=== PATIENT | female | born 1985 | race Caucasian/White ===

== ENCOUNTER 2022-04-24 08:33 | Outpatient (CLI) | payer OTHER, BC, SELFPAY ==
--- NOTE | 2022-04-24 10:01 | W.ANESCHARGE ---
Anesthesia Charges Start Date/Time Anesthesia Start Date: 04/24/22 Anesthesia Start Time: 09:37 Stop Date/Time Anesthesia Stop Date: 04/24/22 Anesthesia Stop Time: 09:58 Summary Emergency: No
--- NOTE | 2022-04-24 10:05 | W.ANESCHARGE ---
Anesthesia Charges Start Date/Time Anesthesia Start Date: 04/24/22 Anesthesia Start Time: 09:37 Stop Date/Time Anesthesia Stop Date: 04/24/22 Anesthesia Stop Time: 09:58 Summary Emergency: No
== END 2022-04-24 08:34 | disposition home or self-care (01) ==
PROVIDERS: PCP Family Medicine; Visit Provider Internal Medicine Gastroenterology
DX: K92.1 Melena (principal); K64.8 Other hemorrhoids
CPT/HCPCS: 45378; 812; J2704

== ENCOUNTER 2022-06-12 10:32 | Outpatient (CLI) | payer OTHER, BC, SELFPAY ==
--- OUTSIDE RECORDS SUMMARY | 2022-06-12 10:35 | XMS_ITS | Clinical Summary ---
:1985 Author Organization [facility] [place] [address] Care Team Providers Name Role Phone Jorje Goodwin MD Unavailable Celina Espinoza MD Primary Care Provider Allergies Active Allergy Reactions Severity Noted Date Comments Mupirocin Rash High 01/04/2022 Medications Medication Sig Dispensed Refills Start Date End Date Status vitamin-folic Take 1 tablet by 0 04/20/2014 Active acid 1 mg ( mouth once daily. FORMULA) tablet/capsule cholecalciferol Take 1 tablet by 0 04/20/2014 Active (VITAMIN D) 1,000 unit mouth once daily. tablet LUTERA, 28, 0.1-20 Take 1 tablet by 0 07/15/2014 Active mg-mcg tablet mouth once daily. sertraline (ZOLOFT) 50 Take 1 tablet by 0 10/21/2016 Active mg tablet mouth once daily. FA-B Com&C-Rice Daily 0 Acti ve Bran-Shelley Hips 400-500 mcg-mg tab Cholecalciferol-Soy Bedtime 0 Active Isoflavone 2,000-64 unit-mg tab amitriptyline (ELAVIL) TAKE 1 TABLET BY 0 01/26/2022 Active 50 mg tablet MOUTH EVERYDAY AT BEDTIME Ferrous Gluconate 324 Daily 0 Active mg (38 mg iron) tablet L Take 1 Tablet by 0 01/04/2022 Ac tive norgest/e.estradioL-e. mouth once daily. estrad (SEASONIQUE) 0.15 mg-30 mcg (84)/10 mcg (7) tab zinc sulfate 50 mg Daily 0 A ctive zinc (220 mg) capsule polyethylene Drink 3 liters 4000 mL 0 03/08/2022 A ctive glycol-electrolyte (3/4 of bottle) (GOLYTELY) the day prior to 236-22.74-6.74 -5.86 colonoscopy and 1 gram liter (remaining suspensionIndications: 1/4 of bottle) 6 Encounter for hours prior to screening colonoscopy colonoscopy appointment Active Problems No known active problems Encounters Date Type Specialty Care Team Description 04/24/2022 Procedure Only Suhail Hopson MD 04/24/2022 Travel 04/17/2022 Telephone Suhail Hopson MD Err or-please disregard from Last 3 Months Social History Tobacco Use Types Packs/Day Years Used Date Former Smoker Quit: 02/16/20 13 Smokeless Tobacco: Never Used Tobacco Cessation: Counseling Given: Yes Alcohol Use Standard Drinks/Week Comments Yes 0 (1 standard drink = 0.6 oz pure alcoho l) 1 times a week Alcohol Habits Answer Date Recorded How often do you have a drink containing alcohol? Not asked How many drinks containing alcohol do you have on a Not aske d typical day when you are drinking? How often do you have six or more drinks on one Not asked occasion? 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 Plan of Treatment Health Maintenance Due Date Last Done Comments COVID-19 vaccine series (#1) 05/02/1988 Tdap 1998 Depression screening for age 12+ 1999 Hepatitis C screening for age 0211/02/2005 18-79 Tetanus booster 2007 BMI (ht and wt on same day) for 08/21/2018 08/21/2017, 12/2016 age 18+ Influenza for age 9-49 05/18/2022 Pap test for age 21-65 10/11/2023 10/11/2020, 10/11/2020, 02/15/2018, Additional history exists Procedures Procedure Name Priority Date/Time Associated Diagnosis Comme nts COLONOSCOPY Routine 04/24/2022 12:00 Hematochezia Results for this DIAGNOSTIC AM CDT procedure are i n the results section. from Last 3 Months Results COLONOSCOPY DIAGNOSTIC (04/24/2022 12:00 AM CDT) Narrative This result has an attachment that is no t available. Suhail Hopson MD GI PROCEDURE ORD from Last 3 Months Insurance Payer Benefit Plan / Subscriber ID Effective Dates Phone Addre ss Type [employer] [id number] 2021-Present [address] [place] [address] BLUE CROSS BLUE CROSS OF [id number] 2020-Present [address] [address] [place] [address] [place] MED[place] 2010-Presen [address] [address] [place] [address] Care Teams Hide Mill Worker Relationship Specialty Start Date End Date Celina Espinoza MD PCP - General Family Practice 03/08/221999 [place] [address] Jorje Goodwin MD Sports Medicine 12/12/11 [address] [place] [address]
--- OUTSIDE RECORDS SUMMARY | 2022-06-12 10:35 | XMS_ITS | Encounter Summary ---
:1985 Author Organization [facility] Address [address] [place] [address] Care Team Providers Name Role Phone Unavailable Primary Care Provider Unavailable Encounter Details Date Type Department Care Team Description 09/28/2003 - Hospital Encounter HX RST GENEROSE 1 OCEANSIDE 10/01/2003 Social History Tobacco Use Types Packs/Day Years Used Date Smoking Tobacco: Never Assessed Sex Assigned at Date Recorded Not on file documented as of this encounter Plan of Treatment Not on filedocumented as of this encounter Procedures Procedure Name Priority Date/Time Associated Diagnosis Comme nts PATHOLOGY SOFTWARE DEVELOPMENT ENGINEER Routine 09/30/2003 7:46 PM Results for this CYTOLOGY RADIATION THERAPY TECHNOLOGIST procedure are i n the results section. documented in this encounter Results Pathology SOFTWARE DEVELOPMENT ENGINEER Cytology (09/30/2003 7:46 PM RADIATION THERAPY TECHNOLOGIST) Specimen Anatomical Collection Method Collection Time Receive d Time (Source) Location / / Volume Laterality 09/30/2003 7:46 PM 4 7:46 RADIATION THERAPY TECHNOLOGIST PM RADIATION THERAPY TECHNOLOGIST Narrative [facility] - 09/30/2003 7:46 PM RADIATION THERAPY TECHNOLOGIST ??09/29/2003 Cytology Gynecological ?([id number]) ? Requested By: ??Isabel Person ??[phone] ?DIAGNOSIS: ?? A. ??Cervical/Endocervical Smear Screen : ?Satisfactory for evaluation. ?Negative for intraepithelial le yessy or malignancy. ? 10/01/2003 ?Jovan Morales (ASCP) Elizabeth Teixeira M.D. ?[phone] ?? SPECIMEN DESCRIPTION: ? Procedure Note 12/08/2017 09/29/2003 Cytology Gynecological ([id number]) Requested By: Matilde Cabrera M.D. [id number] DIAGNOSIS: A. Cervical/Endocervical Smear Screen: Satisfactory for evaluation. Negative for intraepithelial lesion or malignancy. 10/01/2003 MATTIE Morales ( CP) Elizabeth Teixeira M.D. [phone] SPECIMEN DESCRIPTION: Historical Provider LAB PAP COPATH ORDERABLES Performing Organization Address City/State/ZIP Code Phon e Number [facility] - [address] [place], [place] [address] [facility] documented in this encounter Visit Diagnoses Not on filedocumented in this encounter
--- OUTSIDE RECORDS SUMMARY | 2022-06-12 10:35 | XMS_ITS | Encounter Summary ---
:1985 Author Organization [facility] Address [address] [place] [address] Care Team Providers Name Role Phone Elsewhere, Pcp Primary Care Provider Unavailable Encounter Details Date Type Department Care Team Description 08/14/2020 Admin Visit Department of Family Medicine, [address] [address] [facility] [phone] Social History Tobacco Use Types Packs/Day Years Used Date Smoking Tobacco: Every Day Sex Assigned at Date Recorded Not on file documented as of this encounter Plan of Treatment Not on filedocumented as of this encounter Visit Diagnoses Not on filedocumented in this encounter Additional Health Concerns Infection Onset Date Last Indicated Resolved Time COVID19 Pending 08/14/2020 08/14/2020 08/15/2020 3:27 PM CREATIVE 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
--- OUTSIDE RECORDS SUMMARY | 2022-06-12 10:35 | XMS_ITS | Encounter Summary ---
:1985 Author Organization [facility] Address [address] [place] [address] Care Team Providers Name Role Phone Elsewhere, Pcp Primary Care Provider Unavailable Reason for Visit Reason Onset Date Comments Outpatient COVID-19 Testing 08/14/2020 Encounter Details Date Type Department Care Team Description 08/14/2020 External Outreach Department of Dereje Mars Infect ion Upper Internal Medicine in J, D.O. Respiratory (Primary [place], [place] [address] Dx) [address] [place] [phone] Social History Tobacco Use Types Packs/Day Years Used Date Smoking Tobacco: Every Day Sex Assigned at Date Recorded Not on file documented as of this encounter Progress Notes Elizabeth Velez R.N. - 08/14/2020 10:49 AM CST Encounter created for the drive-through COVID-19 testing. BUILDER documented in this encounter Plan of Treatment Not on filedocumented as of this encounter Procedures Procedure Name Priority Date/Time Associated Diagnosis Comme nts SARS CORONAVIRUS-2 Routine 08/14/2020 12:40 PM Infection Upper Results for this RNA, V OVEN BUILDER Respiratory procedure are i n the results section. documented in this encounter Results SARS Coronavirus-2 RNA, V Symptomatic (08/14/2020 12:40 PM OVEN BUILDER) Patholo gist Method Time Signature SARS-CoV-2 Swab, 08/15/2020 MKTO Specimen Nasopharynx 3:27 PM OVEN BUILDER Source SARS CoV-2 Undetected Undetected 08/15/2020 MKTO RNA, TMA 3:27 PM OVEN BUILDER Comment: SARS-CoV-2 RNA absent. This result does not rule out COVID-19 in the patient, as the sensitivity of the test depends o n the timing of the specimen collection and the quality of the specim en. Result should be correlated with patient's history and clinical presentat ion. ----ADDITIONAL INFORMATION---- This test is performed using the Aptima SARS-CoV-2 assay ([employer] which has received Emergency Use Authori zation (EUA) by the U.S. Food and Drug Administration. Fact sheets for this Emergency Use Autho rization (EUA) assay can be found at the following links: For Healthcare Providers: https://www.fd a.gov/media/996385/download For Patients: https://www.fda.gov/media/ 886175/download Specimen Anatomical Collection Method Collection Time Receive d Time (Source) Location / / Volume Laterality Varies 08/14/2020 12:40 08/15/2020 9:50 (Nasopharynx) PM OVEN BUILDER AM OVEN BUILDER Dereje Mars D.O. LAB MICROBIOLOGY - GENERAL O TRA Performing Organization Address City/State/ZIP Code Phon e Number [facility]- [address] [place] [address] [place] [address] System [address] documented in this encounter Visit Diagnoses Diagnosis Infection Upper Respiratory - Primary documented in this encounter Additional Health Concerns Infection Onset Date Last Indicated Resolved Time COVID19 Pending 08/14/2020 08/14/2020 08/15/2020 3:27 PM OVEN BUILDER documented as of this encounter Care Teams Sports Reporter Relationship Specialty Start Date End Date Elsewhere, Pcp PCP - General Family Medicine 08/01/20 documented as of this encounter
--- OUTSIDE RECORDS SUMMARY | 2022-06-12 10:35 | XMS_ITS | Encounter Summary ---
:1985 Author Organization [facility] Address [address] [place] [address] Care Team Providers Name Role Phone Unavailable Primary Care Provider Unavailable Encounter Details Date Type Department Care Team Description 09/28/2003 - 10/01/2003 Hospital Encounter HX NO MAPPING Social History Tobacco Use Types Packs/Day Years Used Date Smoking Tobacco: Never Assessed Sex Assigned at Date Recorded Not on file documented as of this encounter Plan of Treatment Not on filedocumented as of this encounter Visit Diagnoses Not on filedocumented in this encounter
--- OUTSIDE RECORDS SUMMARY | 2022-06-12 10:35 | XMS_ITS | Encounter Summary ---
:1985 Author Organization [facility] Address [address] [place] [address] Care Team Providers Name Role Phone Elsewhere, Pcp Primary Care Provider Unavailable Reason for Visit Reason Onset Date Comments Outpatient COVID-19 Testing 08/01/2020 Encounter Details Date Type Department Care Team Description 08/01/2020 External Outreach Department of [facility] Naomi Real I nfection Upper Medicine, Mitesh Eckert APRN, Respirato ry (Primary Clinic, in Mitesh, C.N.P. Dx) [place] [address] [facility] [[email or web address]] [address] [place] [phone] Social History Tobacco Use Types Packs/Day Years Used Date Smoking Tobacco: Every Day Sex Assigned at Date Recorded Not on file documented as of this encounter Progress Notes Naomi Real APRN, C.N.P. - 08/01/2020 10:00 AM CST Encounter created for the drive-through COVID-19 testing. P CONTRACT ANALYST documented in this encounter Plan of Treatment Not on filedocumented as of this encounter Procedures Procedure Name Priority Date/Time Associated Diagnosis Comme nts SARS CORONAVIRUS-2 Routine 08/01/2020 12:21 PM Infection Upper Results for this RNA, V GROUP CONTRACT ANALYST Respiratory procedure are i n the results section. documented in this encounter Results SARS Coronavirus-2 RNA, V Symptomatic (08/01/2020 12:21 PM GROUP CONTRACT ANALYST) [facility] Method Time Signature SARS-CoV-2 Swab, 08/02/2020 MKTO Specimen Nasopharynx 3:31 PM GROUP CONTRACT ANALYST Source SARS CoV-2 Undetected Undetected 08/02/2020 MKTO RNA, TMA 3:31 PM GROUP CONTRACT ANALYST Comment: SARS-CoV-2 RNA absent. This result does not rule out COVID-19 in the patient, as the sensitivity of the test depends o n the timing of the specimen collection and the quality of the specim en. Result should be correlated with patient's history and clinical presentat ion. ----ADDITIONAL INFORMATION---- This test is performed using the Aptima SARS-CoV-2 assay ([employer] which has received Emergency Use Authori zation (EUA) by the U.S. Food and Drug Administration. Fact sheets for this Emergency Use Autho rization (EUA) assay can be found at the following links: For Healthcare Providers: https://www.fd a.gov/media/322336/download For Patients: https://www.fda.gov/media/ 416628/download Specimen Anatomical Collection Method Collection Time Receive d Time (Source) Location / / Volume Laterality Varies 08/01/2020 12:21 08/02/2020 7:27 (Nasopharynx) PM GROUP CONTRACT ANALYST AM GROUP CONTRACT ANALYST Naomi Real APRN CFlorecitaNFlorecitaP. LAB MICROBIOLOGY - GENERAL ORDERABLES Performing Organization Address City/State/[facility] Code Phon e Number [facility]- [address] [place] [phone] [place] [address] [place] [address] System in [address] documented in this encounter Visit Diagnoses Diagnosis Infection Upper Respiratory - Primary documented in this encounter Additional Health Concerns Infection Onset Date Last Indicated Resolved Time COVID19 Pending 08/01/2020 08/01/2020 08/02/2020 3:32 PM GROUP CONTRACT ANALYST documented as of this encounter Care Teams Zipper Setter Relationship Specialty Start Date End Date Elsewhere, Pcp PCP - General Family Medicine 08/01/20 documented as of this encounter
--- OUTSIDE RECORDS SUMMARY | 2022-06-12 10:35 | XMS_ITS | Clinical Summary ---
:1985 Author Organization [facility] Address [address] [place] [address] Care Team Providers Name Role Phone Elsewhere, Pcp Primary Care Provider Unavailable Source Comments Patient records contain information from all sites at [facility]. For routine questions regarding patient records, call [phone] during business hours, M-F 8:00 AM - 5:00 PM Central Time. Record requests for emergency care only can be directed to [phone] at any time.[facility] Social History Tobacco Use Types Packs/Day Years Used Date Smoking Tobacco: Every Day Sex Assigned at Date Recorded Not on file Last Filed Vital Signs Vital Sign Reading Time Taken Comments Blood Pressure 139/81 04/24/2013 1:16 PM CDT Pulse 89 04/24/2013 1:16 PM CDT Temperature - - Respiratory Rate - - Oxygen Saturation - - Inhaled Oxygen Concentration - - Weight 88.8 kg (195 lb 12.3 oz) 04/24/2013 1:16 PM CDT Height 168.7 cm (5' 6.42) 04/24/2013 1:16 PM CDT Body Mass Index 31.2 04/24/2013 1:16 PM CDT Plan of Treatment Health Maintenance Due Date Last Done Comments HIV Screening 1985 Hepatitis C Screening 1985 Pneumococcal vaccine (0-64 years) 1993 (1 - PCV) Cervical Cancer Screening 02/28/2014 02/28/2011 (Performed elsewhere), 09/30/2003 COVID-19 Vaccine (3 - Booster for 12/21/2020 10/26/2020, Pfizer series) Depression Screening (Annual 09/17/2021 PHQ-2) Influenza Vaccine (#1) 2022 07/01/2019, 08/09/2018, 06/01/2016, Additional history exists DTaP,Tdap,and Td Vaccines (3 - Td 01/16/2029 01/16/2019, or Tdap) Hepatitis B Vaccines Completed 11/13/2018, 11/13/2016, 07/05/2016, Additional history exists Insurance Payer Benefit Plan Subscriber ID Effective Phone Address Typ e / Group Dates [facility] [id number] 2019-Lori [phone] [id number] [place] [address] Care Teams Tree Farmer Relationship Specialty Start Date End Date Elsewhere, Pcp PCP - General Family Medicine 08/01/20
--- OUTSIDE RECORDS SUMMARY | 2022-06-12 10:35 | XMS_ITS | Encounter Summary ---
:1985 Author Organization [facility] Address [address] [place] [address] Care Team Providers Name Role Phone Elsewhere, Pcp Primary Care Provider Unavailable Encounter Details Date Type Department Care Team Description 08/01/2020 Admin Visit Department of Family Medicine, [address] [address] [facility] [phone] Social History Tobacco Use Types Packs/Day Years Used Date Smoking Tobacco: Every Day Sex Assigned at Date Recorded Not on file documented as of this encounter Plan of Treatment Not on filedocumented as of this encounter Visit Diagnoses Not on filedocumented in this encounter Additional Health Concerns Infection Onset Date Last Indicated Resolved Time COVID19 Pending 08/01/2020 08/01/2020 08/02/2020 3:32 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
--- NOTE | 2022-06-12 10:45 | CRLHL7_ITS ---
For Patients: As a result of the Cures Act, medical imaging exams and procedure reports are released immediately into your electronic medical record. You may view this report before your referring provider. If you have questions, please contact your health care provider. DIGITAL DIAGNOSTIC RIGHT MAMMOGRAM USING TOMOSYNTHESIS, 06/12/2022 RIGHT BREAST ULTRASOUND, 06/12/2022 CLINICAL HISTORY: RIGHT breast lump, skin erythema. COMPARISON: 11/04/2021, 06/21/2020. TECHNIQUE: Digital RIGHT mammogram in 2 projections. Real-time ultrasound imaging of RIGHT breast with imaging documentation. BREAST COMPOSITION: The breast is heterogeneously dense, which may obscure small masses. FINDINGS: 3D CC and 3D MLO RIGHT breast mammograms submitted. No architectural distortion or suspicious masses. No adenopathy or suspicious calcifications. Targeted RIGHT breast ultrasound performed in the area of concern at 11 o`clock 2 cm from the nipple. In this location, there is a hypoechoic subcutaneous cyst with a tract extending to the epidermis. This cyst measures 5 x 6 millimeters. No abnormal vascularity. IMPRESSION: Benign mildly inflamed subcutaneous cyst RIGHT breast 11 o`clock 2 cm from the nipple measuring 6 millimeters. No evidence of malignancy. RECOMMENDATIONS: Routine screening mammography as the patient has a strong family history of breast cancer. BI-RADS Category 2: Benign Results and recommendations discussed with the patient. Dictated by Jake Davis MD @ 06/12/2022 11:39:29 AM PT/Dictated by: Jake Davis MD @ 06/12/2022 11:39:00 AM (Electronically Signed)
--- NOTE | 2022-06-12 11:15 | CRLHL7_ITS ---
For Patients: As a result of the Century Cures Act, medical imaging exams and procedure reports are released immediately into your electronic medical record. You may view this report before your referring provider. If you have questions, please contact your health care provider. PLEASE SEE RIGHT DIAGNOSTIC MAMMOGRAM OF SAME DAY. CRL:asya PT/Dictated by: Jake Davis MD @ 06/12/2022 11:39:00 AM (Electronically Signed)
== END 2022-06-12 10:33 | disposition home or self-care (01) ==
PROVIDERS: PCP Family Medicine; Visit Provider Physician Assistant
DX: N63.10 Unspecified lump in the right breast, unspecified quadrant (principal); R92.2 Inconclusive mammogram
CPT/HCPCS: 76642; 77065; G0279

== ENCOUNTER 2022-09-05 07:50 | Day surgery (SDC) | payer OTHER, BC, SELFPAY ==
[2022-09-05] VITALS (20 sets, daily range): BP systolic 114–150; BP diastolic 74–87; PULSE 64–110; RESP 16; TEMP 36.3–37; O2SAT 94–100; BMI 38.9
[2022-09-05] MEDS: LACTATED RINGERS 1000 ML 1,000 ML 100 ML IV ×3 (07:30→11:48)
[2022-09-05] MEDS: SODIUM CHLORIDE 0.9 % (FLUSH) 10 ML SYRINGE IVF (07:59)
[2022-09-05 08:10] LABS: Ur HCG Qualitative* Negative (Negative)
[2022-09-05 08:19] LABS: Hemoglobin* 15.4 gm/dL (12.0-16.0)
[2022-09-05] MEDS: BUPIVACAINE 0.5% 30 ML INJECTION (10:28)
[2022-09-05] MEDS: BUPIVACAINE LIPOSOME 133 MG/10 ML INJ INFILTRATI (10:28)
[2022-09-05] MEDS: CEFAZOLIN 1 GM inj 3 GM IVP (10:40)
--- NOTE | 2022-09-05 10:41 | P.GSOP_ITS ---
Operative Note Date of procedure: 09/05/22 Type of Procedure: 1. Three quadrant external and internal hemorrhoidectomy. Procedure Description: After discussing the risks and benefits of the procedure, the patient signed informed consent.? The operative site was marked and the patient was brought to the operating room. Patient was intubated by anesthesia and placed prone on the operating table with pressure points padded. The operative site was then prepped and draped in the usual sterile fashion.? A time-out was then performed. External examination, digital rectal examination, and anoscopic examination were all done and revealed significantly redundant internal hemorrhoidal tissue in the Right and left posterior lateral and right anterior lateral aspects of the anal canal with associated hemorrhoidal skin tags and enlarged internal hem orrhoidal tissue. Based on this assessment, plans were made for a 3-quadrant closed hemorrhoidectomy to encompass the aforementioned aspects of the anal canal. Attention was initially directed to the largest area of involvement and then went to the progressively smaller areas and all were handled in the same fashion. An elliptical incision was made with a needle tip electrocautery from the anode rm up into the anal canal just above the dentate line. Careful dissection of the hemorrhoid complex was done in the plane between the internal anal sphincter and the submucosal vascular plexus up to just above the dentate line in each quadrant described above. Having established the proper plane, the hemorrhoidal tissue was then excised with the Ligasure device and sent to Pathology for analysis. Care was taken to preserve mucosa for a tension-free closure. The internal sphincter fibers were visualized at the base of the wound and were intact. The wound was closed in a running locked manner starting at the apex (proximal aspect of elliptical excision) with 3-0 chromic suture, coming out to the anoderm and then running back up in a simple fashion and tying down at the apex. Hemostasis was excellent. a mixture of Marcaine and Exparel were injected for bilateral pudendal nerve block and around the anus. A pressure dressing was left in the anus to be removed in the PACU. ? All counts were correct at the end of the case. Patient was then repositioned for laparoscopic hysterectomy. Findings: Enlarged internal and external hemorrhoidal tissue. Anesthesia: GETA Surgeon: Ross Hubbard MD Estimated blood loss (mL): 10 Condition: stable Disposition: no change
--- NOTE | 2022-09-05 11:08 | W.PM.NB ---
Nerve Block Nerve Block Time Seen by Provider: 10:40 Date Seen: 09/05/22 Type of block requested by surgeon for post-operative analgesia: TAP Side: bilateral Time out performed: Yes Verification of patient name: Yes Verification of date of : Yes Site marking: site marked Name of person performing procedure: Luca Continuous monitoring Was continuous monitoring of O2 sat, B/P, property assessment monitor, recorded every 15 minutes?: Yes Procedure Checklist: sterile prep, needles and gloves Ultrasound guided. Images saved: Yes Medications given in 5ml increments after negative aspiration: Marcaine %: 0.25 mL: 30 Needle gauge: 20 and Exparel mL: 10 Patient tolerated procedure well: Yes Additional comments: Needle noted adjacent to nerve Block Charges Block Charge (with Pro Fee): TAP Bilateral Use of Ultrasound Machine for Block: Yes- US Guidance/pain block
--- NOTE | 2022-09-05 11:37 | SUR.OPER ---
Time out performed with Dr. Brown at [id number]
[2022-09-05] MEDS: BUPIVACAINE 0.25% 30 ML INJECTION (12:30)
[2022-09-05] MEDS: BUPIVACAINE 0.5 %/EPI 1:200K 30 ML INJECTION (13:00)
[2022-09-05] MEDS: KETOROLAC 30 MG/ML inj IVP ×2 (13:06→19:00)
--- NOTE | 2022-09-05 13:38 | P.PCN_ITS ---
Procedure Note Time Seen by Provider: 13:38 Date Seen: 09/05/22 Date of procedure: 09/05/22 Will [facility] bill your pro fee for this procedure?: Yes Procedure Description: Preoperative diagnosis: [age]-year-old [] para [] Postoperative diagnosis: Same Procedure: 1. Symptomatic internal and external hemorrhoids 2. Total laparoscopic hysterectomy, lysis of adhesions, peritoneal biopsy x2, treatment of endometriosis with bipolar cautery, bilateral salpingectomy, diagnostic cystoscopy. 3. Transobturator suburethral sling placement Anesthesia: General endotracheal, local Surgeon: Veda Brown MD Second primary surgeon: Chanel Hubbard MD: performed the hemorroidectomy. Assist: Ashlee Bonner MD Estimated blood loss: 250 mL. IV Fluid: 2300 mL Urine output: 75 mL: Clear urine at the end of the procedure Drains: Hay to gravity Specimen: Uterus,bilateral fallopian tubes, left cul-de-sac peritoneal biopsies (x2) to pathology. Findings: On exam under anesthesia: The uterus was midposition, approximately 9-10 week size, mobile without nodularity or masses palpable. Adnexa without mass or fullness palpable. On laparoscopy: normal appendix, gallbladder and liver edge. Normal-appearing uterus and fallopian tubes. There were 3 small endometriosis implants in the posterior cul-de-sac on the left side of the pelvis. There were also 2 small implants noted on the right abdominal wall superior to the pelvic brim. There was an adhesion of the omentum in the midline to her scar. Procedure: Vangie was taken to the operating room where general anesthetic was found to be adequate. she was placed on her abdomen to perform the hemorrhoidectomy. Please see Dr. Hubbard's note for complete details She was placed in the dorsal lithotomy position and an exam under anesthesia was performed with findings stated above. She was then prepped and draped in a normal sterile manner. A Hay catheter was in place. A bivalve speculum was placed in the vaginal canal. A long Allis clamp was placed on the anterior lip of the cervix, in the uterus sounded to 9.5 cm. A large VCare uterine manipulator was then placed. The Allis clamp and speculum were removed from the cervix. Attention was then turned to performing the laparoscopic portion of the procedure. All incisions were infiltrated with 0.25% Marcaine prior to incising the skin. A vertical, infraumbilical 1 cm incision was made. An 11 mm trocar was then placed under direct visualization. The abdomen was then insufflated with CO2 gas to a pressure of 15 mm of mercury. Two,, pelvic ports were then placed approximately 3-4 finger breaths medial to the ischial crests. The trocar in the RLQ = 5mm, LLQ = 11mm. These were placed under direct visualization. The omental adhesions to the anterior abdominal wall were taken down using the Olympus Explay Japaneal dissecting forceps. A diagnostic laparoscopy was performed the above findings noted above. Attention was turned to removing the peritoneal implants from the posterior cul-de-sac. A suprapubic midline, 5 mm port was placed under direct visualization. The 1st peritoneal biopsy was grasped with a Dora forceps and a scopic Metzenbaum scissors was used to remove the implant. A 2nd implant was then also removed in a similar manner. The peritoneal edges were cauterized using the JMEA LigaSure bipolar spatula cautery tip. Hemostasis was verified. Attention was then turned to performing the hysterectomy. Both ureters were visualized in the normal position bilaterally. The left fallopian tube was grasped and removed with sequential pedicles using the dissecting, Explay Japaneal blunt tip dissecting forceps. The left side of the hysterectomy was performed using the Explay Japaneal dissecting forceps. The 1st pedicles were starting with the broad ligament that was cauterized and and bisected. In sequence show pedicles were formed to divide the utero-ovarian ligament. Then sequential pedicles were made through the broad ligament. The posterior leaf of the broad ligament was then divided and sequential pedicles carried down to the level of the VCare cup. The anterior leaf of the broad ligament was then divided down to the level of the anterior aspect of the VCare cup and a bladder flap created. The uterine vessels were then skeletonized. The uterine vessels were then cauterized and divided. Then excess tissue was cleared over the top of the VCare cup using the dissecting forceps. The right salpingectomy and right side of the hysterectomy were then performed in a similar manner. The Ligasure Oscarlab pen with the spatula attachment was then used to perform the colpotomy incising around the VCare cup. The uterus was removed and the fundus placed in the vaginal canal to maintain insufflation. The vaginal cuff was then reapproximated using 2-0 V lock suture in a running manner. All the pedicles and vaginal cuff were then closely visualized and hemostasis obtained with bipolar cautery using the PowerSeal dissecting forceps or the Oscarlab pen with the spatula. The the uterus was removed from the vaginal canal and sent to pathology. The Hay catheter was briefly removed. A diagnostic cystoscopy was performed using normal saline as the insufflation medium. The dome of the bladder was noted to be without injury and no evidence of any sutures from the vaginal cuff causing injury. Normal urine flow was noted through both ureteral orifices. Fluorescein IV was used to visualize the urine more easily. The Hay catheter was then replaced. Attention was then returned to the abdomen where hemostasis was verified. [Butch was applied to the vaginal cuff.] The CO2 pressure decreased to 8mmHG and hemostasis verified. The fascia in the LLQ incision was approximated with 0-Vicryl suture using the Isaiah López fascial closure device. This was closed under direct visualization with the laparoscope. The fascia in the umbilical incision was reapproximated using 0 Vicryl on a UR 6 needle. All t rocars were removed under direct visualization. CO2 gas was allowed to escape the infraumbilical port prior to its removal. All skin incisions were re- approximated using 4-0 Monocryl in a running subcuticular manner, Exofin skin adhesive gel and adhesive bandages placed. Steri-Strips were placed over the infraumbilical incision. Attention was turned to performing the transobturator, suburethral sling placement.The patient was placed in the high Michaud's position. Hay catheter was in place. A skin marker was used to ed on the area where the trocars were going to be placed. This is at the level of the clitoris and bilateral groin folds. 0.25% Marcaine with epinephrine was used for local for this procedure. 10 mL was injected in the incisions at each of the groin folds. A weighted speculum was placed in the vagina. 10 mL of the Marcaine with epinephrine was injected in the anterior aspect of the vaginal canal over the mid urethral area. Punch incisions were made in the groin fold pappas. A 2 cm vertical incision was made in the vaginal mucosa. The mucosa was grasped with 2 Allis clamps 1 on each side of the incision. The vaginal mucosa was then undermined using Metzenbaum scissors toward the inferior aspect of the patient's pubic bone bilaterally. The left Michelle trocar was placed without difficulty and the Michelle sling attached to it. The right trocar was then placed without difficulty and the right side of the sling attached to this trocar. Both trocars were used to pull the sling through the incision the groin incisions. A #9 Hegar cervical dilator was placed between the sling and the urethral mucosa to prevent the sling from being tightened too much. The Hay catheter was removed briefly, a diagnostic cystoscopy was performed using saline as the insufflation medium. The bladder and urethra shortness of no evidence of injury from sling placement. The cystoscope was removed and the Hay catheter replaced after Betadine was applied to the urethral meatus to drain cystoscopy fluid then the catheter was removed. The trocars were removed by cutting the sling just above the groin incisions. The overlying plastic removed and the remaining sling was then trimmed so the edge was below the skin. The groin skin incisions were repaired using Exofin skin adhesive. The vaginal incision was repaired using 2-0 Vicryl in a running locked manner. Excellent hemostasis was noted. The patient tolerated this procedure well. Sponge, lap and instrument counts were correct x2 at the end of the procedure and the patient was taken to the recovery area in stable condition. The patient received 3gm IV ancef prior to the start of the procedure. Surgeon: Veda Brown MD
--- NOTE | 2022-09-05 13:38 | W.ANESCHARGE ---
Anesthesia Charges Start Date/Time Anesthesia Start Date: 09/05/22 Anesthesia Start Time: 09:42 Stop Date/Time Anesthesia Stop Date: 09/05/22 Anesthesia Stop Time: 13:35 Summary Emergency: No
[2022-09-05] MEDS: LACTATED RINGERS 1000 ML 1,000 ML 125 ML IV (14:00)
--- NOTE | 2022-09-05 14:01 | W.ANESCHARGE ---
Anesthesia Charges Start Date/Time Anesthesia Start Date: 09/05/22 Anesthesia Start Time: 09:42 Stop Date/Time Anesthesia Stop Date: 09/05/22 Anesthesia Stop Time: 13:35 Summary Emergency: No
[2022-09-05] MEDS: HYDROmorphone 0.5 mg/0.5 ml inj IVP ×3 (14:40→19:37)
[2022-09-05] MEDS: LACTATED RINGERS 1000 ML 1,000 ML 30 ML IV (17:37)
[2022-09-05] MEDS: DOCUSATE SODIUM 100 MG CAPSULE PO (20:20)
[2022-09-05] MEDS: AMITRIPTYLINE 25 MG TABLET 50 MG PO (20:20)
[2022-09-05] MEDS: SENNOSIDES/DOCUSATE TABLET 1 TAB PO (20:21)
[2022-09-05] MEDS: FEXOFENADINE 180 MG TABLET 360 MG PO (20:21)
[2022-09-05] MEDS: MINERAL OIL 0.5 ML PO (20:28)
[2022-09-05] MEDS: OXYCODONE 5 MG TABLET PO (23:06)
[2022-09-05] MEDS: ACETAMINOPHEN 500 MG TABLET 1000 MG PO (23:07)
[2022-09-06 00:59] VITALS: BP 110/71; PULSE 75; RESP 16; TEMP 36.6; O2SAT 95
[2022-09-06] MEDS: KETOROLAC 30 MG/ML inj IVP (01:02)
[2022-09-06 05:08] VITALS: BP 120/79; PULSE 71; TEMP 36.7; O2SAT 98
[2022-09-06] MEDS: ACETAMINOPHEN 500 MG TABLET 1000 MG PO ×2 (05:09→12:57)
[2022-09-06] MEDS: OXYCODONE 5 MG TABLET PO ×3 (05:10→12:58)
[2022-09-06 07:57] LABS: Hemoglobin* 12.6 gm/dL (12.0-16.0)
[2022-09-06 08:29] VITALS: BP 114/71; PULSE 76; RESP 16; TEMP 36.7; O2SAT 97
[2022-09-06] MEDS: FEXOFENADINE 180 MG TABLET 360 MG PO (09:00)
[2022-09-06] MEDS: SENNOSIDES/DOCUSATE TABLET 1 TAB PO (09:00)
[2022-09-06] MEDS: IBUPROFEN 600 MG TABLET PO ×2 (09:00→14:36)
[2022-09-06] MEDS: DOCUSATE SODIUM 100 MG CAPSULE PO (09:00)
[2022-09-06] MEDS: polyethylene glycoL 3350 17 GM PACK PO (09:00)
--- NOTE | 2022-09-06 09:09 | PM.GSPN ---
Subjective Subjective Date Seen: 09/06/22 Interval history: Patient is doing great. Tolerating regular diet. She ambulated. She denies pain near her perineum. Exam Narrative: Exam Narrative: Perianal exam was not performed today. Const: Vital Signs, click to edit/add: Vital Signs - 24 hr 09/05/22 13:31 09/05/22 13:50 09/05/22 13:35 Temperature 98 F Pulse Rate 90 85 82 Pulse Rate [Left P ulse Oximeter] Respiratory Rate 16 16 16 Blood Pressure 130/77 114/75 131/79 Blood Pressure [Le ft Arm] Pulse Oximetry 100 98 Oxygen Delivery Me thod Room Air 09/05/22 13:40 09/05/22 13:45 09/05/22 13:55 Temperature Pulse Rate 81 77 79 Pulse Rate [Left P ulse Oximeter] Respiratory Rate 16 16 16 Blood Pressure 124/74 121/79 118/75 Blood Pressure [Le ft Arm] Pulse Oximetry 99 98 97 Oxygen Delivery Me thod Room Air 09/05/22 14:00 09/05/22 14:18 09/05/22 14:31 Temperature 97.8 F 97.9 F Pulse Rate 79 Pulse Rate [Left P ulse Oximeter] 72 74 Respiratory Rate 16 16 16 Blood Pressure 122/76 Blood Pressure [Le ft Arm] 150/83 H 117/81 Pulse Oximetry 97 95 96 Oxygen Delivery Me thod Room Air Room Air Room Air 09/05/22 14:46 09/05/22 15:01 09/05/22 16:09 Temperature Pulse Rate Pulse Rate [Left P ulse Oximeter] 77 74 82 Respiratory Rate 16 16 16 Blood Pressure Blood Pressure [Le ft Arm] 126/82 122/83 120/79 Pulse Oximetry 97 97 96 Oxygen Delivery Me thod Room Air Room Air Room Air 09/05/22 15:39 09/05/22 17:16 09/05/22 18:06 Temperature 98.1 F Pulse Rate 74 Pulse Rate [Left P ulse Oximeter] 64 88 Respiratory Rate 16 16 16 Blood Pressure Blood Pressure [Le ft Arm] 117/79 124/87 117/81 Pulse Oximetry 98 97 Oxygen Delivery Me thod Room Air Room Air Room Air 09/05/22 16:00 09/05/22 18:16 09/05/22 19:16 Temperature 98.1 F Pulse Rate Pulse Rate [Left P ulse Oximeter] 89 88 Respiratory Rate 16 16 16 Blood Pressure Blood Pressure [Le ft Arm] 120/78 125/82 Pulse Oximetry 95 94 Oxygen Delivery Me thod Room Air Room Air 09/05/22 20:16 09/06/22 00:59 09/06/22 05:08 Temperature 98.6 F 97.8 F 98.1 F Pulse Rate Pulse Rate [Left P ulse Oximeter] 94 75 71 Respiratory Rate 16 16 Blood Pressure Blood Pressure [Le ft Arm] 129/79 110/71 120/79 Pulse Oximetry 94 95 98 Oxygen Delivery Me thod Room Air 09/06/22 08:29 Temperature 98.1 F Pulse Rate Pulse Rate [Left P ulse Oximeter] 76 Respiratory Rate 16 Blood Pressure Blood Pressure [Le ft Arm] 114/71 Pulse Oximetry 97 Oxygen Delivery Me thod Room Air Progress Note: A&P Assessment and plan (1) S/P hemorrhoidectomy: Status: Acute Assessment and Plan: 36-year-old female s/p 3 quadrant hemorrhoidectomy POD 1. Patient is doing well. 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 I discussed with the patient to continue taking Sitz baths as often as possible. She should continue laxatives. Follow up in surgery Clinic in 2 weeks.
[2022-09-06] MEDS: hydrOXYzine pamoate 25 MG CAPSULE PO ×2 (09:29→12:57)
--- NOTE | 2022-09-06 12:51 | P.DS_ITS ---
DS: Providers Provider Date Seen: 09/06/22 Primary care physician: Celina Espinoza MD Attending Physician on discharge: Veda Brown MD DS: Diagnosis Discharge Diagnosis (1) S/P hemorrhoidectomy: Status: Acute (2) Mixed stress and urge urinary incontinence: Status: Acute Problem details: Stress >> urge (3) S/P laparoscopic hysterectomy: Status: Acute Problem details: Total laparoscopic hysterectomy with bilateral salpingectomy, diagnostic cystoscopy, peritoneal biopsy x2 and treatment endometriosis. (4) History of suburethral sling procedure: Status: Acute Problem details: Trans obturator, suburethral sling. 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 Hubbard and planned total laparoscopic hysterectomy, bilateral salpingectomy, diagnostic cystoscopy and treatment of endometriosis.. Indication for surgery: Symptomatic hemorrhoids, severe dysmenorrhea and pelvic pain. Intraoperative findings were notable for stage I endometriosis otherwise normal- appearing tubes, ovaries, uterus, appendix, gallbladder and liver. She had an uncomplicated surgery. Postoperative course has been uneventful. Vitals have been stable. She has remained afebrile. Today, on postoperative day 1, she reports the pain is well controlled. She has been able to ambulate without difficulty. She is tolerating regular diet. She is passing flatus. Hay catheter has been removed, and she is with difficulty. Bladder scan x2 showed 240 mL and 260 mL, respectively. Planning postvoid residual after her next urination and if > 100 mL to learn straight catheterization in do intermittent to catheterizing at home until temporary urinary retention resolves. Hospital Course: Labs: Preoperative hemoglobin 15.4, postoperative hemoglobin 12.6. Objective: General: Alert and oriented x3. Pleasant, woman in no acute distress. Vital signs: See EMR. Heart: Regular rate and rhythm without gallop, rub or murmur. Chest: Clear to auscultation bilaterally. Abdomen: Soft, nontender, nondistended with normal bowel sounds throughout. No CVA or flank tenderness. She has some bruising near her left lower quadrant incision and is somewhat tender to palpation in that area but is otherwise doing well. Incision(s): Clean, dry and intact w/ sutures and skin adhesive. Pelvic: Minimal vaginal bleeding, remainder of pelvic exam deferred. Extremities: No pain, edema, cyanosis or clubbing. Assessment: 36-year-old postoperative day 1 from a hemorrhoidectomy, total laparoscopic hysterectomy, bilateral salpingectomy, peritoneal biopsy x2, treatment of endometriosis, lysis of adhesions, diagnostic cystoscopy and suburethral sling placement doing well. Plan: 1. Discharge home today. 2. Activity restrictions reviewed with the patient. 3. Return to clinic to see Dr. Brown for a postoperative visit in 2-3 weeks. 4. Learn straight catheterization if her postvoid residual is greater than 100 mL. 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 Brown Prescriptions: New docusate sodium 100 mg Capsule 100 mg PO BID Qty: 100 0RF polyethylene glycol 3350 [Miralax] 17 gram Powder In Packet 17 g PO DAILY Qty: 100 0RF ibuprofen 600 mg Tablet 600 mg PO Q6H PRN (Reason: Pain) 15 Days Qty: 60 0RF oxycodone 5 mg Tablet 5 mg PO 3XD PRN (Reason: Moderate Pain) 10 Days Qty: 30 0RF hydroxyzine pamoate 25 mg Capsule 25 mg PO Q4H PRNQty: 30 0RF sennosides-docusate sodium [Stool Softener-Laxative] 8.6-50 mg Tablet 1 tab PO BID PRN (Reason: constipation) Qty: 100 0RF pramoxine 1 % Foam 1 applic topical QID PRN (Reason: anal pain) Qty: 30 2RF sertraline 50 mg Tablet 150 mg PO DAILY 365 Days Qty: 90 3RF Continued epinephrine 0.3 mg/0.3 mL auto-injector 0.3 mg IM PRN PRN zinc sulfate 50 mg zinc (220 mg) capsule 50 mg PO DAILY DHA 200 mg capsule 200 mg PO DAILY cholecalciferol (vitamin D3) 10 mcg (400 unit) capsule 10 mcg PO DAILY vitamin B complex [B Complex-Vitamin B12] Tablet 1 tab PO DAILY fexofenadine [Ania Allergy] 180 mg tablet 360 mg PO BID sertraline 100 mg tablet 150 mg PO DAILY amitriptyline 50 mg tablet 50 mg PO HS Discontinued ferrous gluconate 324 mg (38 mg iron) tablet 324 mg PO DAILY L norgest/e.estradiol-e.estrad [Ashlyna] 0.15 mg-30 mcg (84)/10 mcg (7) tablets,dose pack,3 month 1 tab PO DAILY Activity Level: Other Discharge Diet: Regular Patient Instructions: Deep Sedation (DC), Sitz Bath (DC), Hemorrhoidectomy (DC), Bladder Sling (DC) Additional Instructions: Patient should do Sitz baths 3 times a day and after each bowel movement to keep her hemorrhoidectomy incisions clean. She should continue taking laxatives to avoid constipation. If her postvoid residual in the hospital is > 100 mL please teach the patient to straight catheterization 3 - 4 times/day. Use straight catheterizing until postvoid residue urine is <100mL. Give straight catheters (10) and lidocaine gel to the patient on discharge. Can reuse the catheters: wash with warm, soapy water and let dry. Discharge instructions were reviewed with the patient including signs and symptoms of infection and medications to use for pain.? Activity Restrictions after a laparoscopic hysterectomy: No lifting greater than 20 pounds for 4 weeks. No high impact or core exercises for 4 weeks. Nothing per vagina for 6 weeks. Off work or school for 4 weeks. Follow-up appointments: 1. With Dr. Hubbard in 2 weeks for post hemorrhoidectomy postop exam. 2. With Dr. Brown in 2-3 weeks for post hysterectomy and urethral sling exam. Forms: Work/School Release Follow-up: Veda Brown MD [Staff Physician] - Ross Hubbard MD [Staff Physician] - Discharge Orders: Discharge Order (Routine); Ordered 09/06/22 Ordered By: Veda Brown
[2022-09-06 15:34] VITALS: BP 114/71; PULSE 76; RESP 16; TEMP 36.7
== END 2022-09-06 15:40 | disposition home or self-care (01) ==
LOC: MEDSURG 08:40 → OB 14:54 → SS 09-06 07:51 → OB 09-06 07:52
PROVIDERS: Surgery; PCP Family Medicine; Visit Provider Obstetrics & Gynecology
PROC: 0UT94ZZ Resection of Uterus, Percutaneous Endoscopic Approach (ICD-10-PCS; CPT 58571; principal; 2022-09-05 08:45)
PROC: (CPT 58571; 2022-09-05 08:45)
PROC: (CPT 46260; 2022-09-05 08:45)
DX: N80.329 Endometriosis of the posterior cul-de-sac, unspecified depth (principal); N80.C19 Endometriosis of the anterior abdominal wall, unspecified depth; N94.6 Dysmenorrhea, unspecified; N92.0 Excessive and frequent menstruation with regular cycle; K66.0 Peritoneal adhesions (postprocedural) (postinfection); N39.46 Mixed incontinence; K64.8 Other hemorrhoids; K64.4 Residual hemorrhoidal skin tags; R10.2 Pelvic and perineal pain; F41.1 Generalized anxiety disorder; L50.9 Urticaria, unspecified; R03.0 Elevated blood-pressure reading, without diagnosis of hypertension
CPT/HCPCS: 58571; 58662; 49321; 46260; 57288; 00840; 36415; 51798; 64488; 76942; 81025; 85018; 86850; 86900; 86901; 88305; 88307; A4344; A9270; C1771; C9290; J0131; J0330; J0690; J1100; J1170; J1885; J2704; J3010; J3475; J3490; J7120

== ENCOUNTER 2022-11-10 12:13 | Emergency (ER) | payer OTHER, SELFPAY ==
[2022-11-10 12:30] VITALS: BP 131/81; PULSE 108; RESP 20; TEMP 36.6; O2SAT 98; BMI 37.9
[2022-11-10] MEDS: IPRAT-ALBUT 0.5-2.5 MG/3 ML NEB 1 NEB IH (13:18)
--- NOTE | 2022-11-10 13:21 | ED_ITS ---
HPI - General Adult General Date Seen: 11/10/22 Chief complaint: Cough Stated complaint: Covid +, hard time catching breath Time Seen by Provider: 11/10/22 12:30 Source: patient Mode of arrival: ambulatory Limitations: no limitations History of Present Illness HPI narrative: Patient is a 37-year-old who says she was told to come in by her primary doctor for shortness of breath. She was diagnosed with COVID 3 days ago. She says that she was running fevers but those have resolved. She feels like her breathing is worse however, her chest is feeling more tight. She does not have pleuritic chest pain. No lower extremity swelling or pain. No vomiting or diarrhea, no rashes. She has some body aches and fatigue. Mostly though she just feels like it is hard to take a deep breath. She denies previous history of asthma, DVT or PE. She does not take Related Data Home Medications Medication Instructions Recorded Confirmed cholecalciferol (vitamin D3) 10 10 mcg PO DAILY 03/17/22 11/10/22 mcg (400 unit) capsule docosahexaenoic acid 200 mg 200 mg PO DAILY 03/17/22 09/21/22 capsule ( DHA) epinephrine 0.3 mg/0.3 mL 0.3 mg IM PRN PRN 03/17/22 11/10/22 injection, auto-injector fexofenadine 180 mg tablet 360 mg PO BID 03/17/22 11/10/22 (Ania Allergy) vitamin B complex (B 1 tab PO DAILY 03/17/22 11/10/22 Complex-Vitamin B12 tablet) zinc sulfate 50 mg zinc (220 mg) 50 mg PO DAILY 03/17/22 11/10/22 capsule sertraline 100 mg tablet 150 mg PO DAILY 09/05/22 11/10/22 Previous Rx's Medication Instructions Recorded docusate sodium 100 mg capsule 100 mg PO BID #100 caps 09/06/22 ibuprofen 600 mg tablet 600 mg PO Q6H PRN Pain 15 days #60 09/06/22 tabs polyethylene glycol 3350 17 gram 17 g PO DAILY #100 ea 09/06/22 oral powder packet (Miralax) sennosides 8.6 mg-docusate sodium 1 tab PO BID PRN constipation #100 09/06/22 50 mg tablet (Stool tabs Softener-Laxative) phenylephrine 0.25 %-pramoxine 1 1 applic TX QID PRN rectal 09/20/22 %-glycerin-wh.petrolatum rectal discomfort #51 grams cream (Preparation H Maximum Strength) amitriptyline 50 mg tablet 50 mg PO HS #90 tabs 09/21/22 Allergies Allergy/AdvReac Type Severity Reaction Status Date / Time mupirocin Allergy Intermediate skin burn Verified 11/10/22 12:37 PFSH PFS Medical History (Updated 11/10/22 @ 17:55 by Lidia Slade MD) BMI 39.0-39.9,adult Chronic interstitial cystitis (~2008) Endometriosis Fluttering sensation of heart Generalized anxiety disorder Hemorrhoids History of pre-eclampsia History of severe pre-eclampsia Hypertension (~10/2021) Mixed stress and urge urinary incontinence Normal vaginal delivery DELONTE (stress urinary incontinence, female) Temporomandibular joint disorder Urticaria Surgical History (Updated 09/06/22 @ 12:54 by Veda Brown MD) History of section (02/27/19) History of laparoscopy (05/2015) History of sinus surgery (~08/2016) History of suburethral sling procedure (09/05/22) History of tonsillectomy (~1997) Hx of echocardiogram (2015) S/P hemorrhoidectomy (09/05/22) S/P laparoscopic hysterectomy (09/05/22) Family History Mother Anxiety disorder Family history of breast cancer gene mutation in first degree relative High blood pressure Brain cancer Brother Asthma Maternal Grandmother Breast cancer, Onset Age: 40 Family/Other Breast cancer Type 1 diabetes mellitus Colon cancer Paternal Grandfather Coronary artery disease Maternal Grandfather Coronary artery disease Brother Heart murmur Father High blood pressure Social History (Updated 09/01/22 @ 07:31 by Celina Espinoza MD) Narrative: , 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 Education: 4 year college degree. Tobacco use: Former smoker, quit during her 1st in 2008. E-cigarettes: No Alcohol: Yes, 6-10 servings/month. Illicit/recreational drug use: No Concern for safety at home or work: No Desires to discuss abuse: No Exercise: No Dietary restriction: No Smoking Status: Former smoker What tobacco products do you use: cigarettes Smoking quit date/years: <= 15 years ago Do you use any of these nicotine containing products: None Second hand tobacco smoke exposure: No How often do you have a drink containing alcohol: 2-4 times a month Alcohol type: beer and hard liquor How many standard drinks containing alcohol do you have on a typical day: 3 or 4 How often do you have six or more drinks on one occasion: Never AUDIT-C Alcohol total score: 3 Non-prescribed substance use: denies use Caffeine: Yes (coffee 3 cups/day) Little interest or pleasure in doing things: several days Feeling down, depressed, or hopeless: several days Are you using contraception or practicing any form of control: Yes ( had vasectomy) service: No Exam Const: Vital Signs, click to edit/add: Vital Signs - 24 hr 11/10/22 12:30 Temperature 97.9 F Pulse Rate [Pulse Oximeter] 108 H Respiratory Rate 20 Blood Pressure [Ri ght Upper Arm] 131/81 Pulse Oximetry 98 Oxygen Delivery Me thod Room Air Course Course Hospital Course: I tried giving her and DuoNeb here and she did feel like that was full. Labs were notable for a normal white blood cell count and hemoglobin, metabolic panel was normal, CRP was elevated at 7.5, not surprising given her COVID diagnosis. BNP was normal. LFTs were unremarkable. D-dimer returned at 0.8, mildly elevated for age, therefore I did elect to do a CT scan of the chest to rule out pulmonary embolism, COVID pneumonia, bacterial pneumonia, or other acute pulmonary process. By my review, the CT scan was of somewhat poor quality but did not show any evidence of pulmonary embolism or pneumonia. Final radiology read was negative. Reviewed with her that I think symptoms are essentially due to her COVID infection but without other superimposed problem. I think it is reasonable to let her go home. She has an oximeter already, return for O2 sats which are consistently below 90%. Otherwise, she should feel better over the next couple of weeks, primary care followup if not. I gave her an albuterol inhaler to try. She does not like prednisone so we are going to stay away from that. Vital Signs Vital signs: Initial Vital Signs Temperature 97.9 F 11/10/22 12:30 Temperature Source Temporal Artery Scan 11/10/22 12:30 Pulse Rate 108 H 11/10/22 12:30 Pulse Rhythm 11/10/22 12:30 Pulse Strength 3+ Normal 11/10/22 12:30 Respiratory Rate 20 11/10/22 12:30 Blood Pressure 131/81 11/10/22 12:30 Blood Pressure Mean 97 11/10/22 12:30 Blood Pressure Position Sitting 11/10/22 12:30 Pulse Oximetry 98 11/10/22 12:30 Oxygen Delivery Method 11/10/22 12:30 Vital Signs Temperature 97.9 F 11/10/22 12:30 Pulse Rate 108 H 11/10/22 12:30 Respiratory Rate 20 11/10/22 12:30 Blood Pressure 131/81 11/10/22 12:30 Pulse Oximetry 98 11/10/22 12:30 Oxygen Delivery Method 11/10/22 12:30 Temperature 97.9 F 11/10/22 12:30 Pulse Rate 108 H 11/10/22 12:30 Respiratory Rate 20 11/10/22 12:30 Blood Pressure 131/81 11/10/22 12:30 Pulse Oximetry 98 11/10/22 12:30 Oxygen Delivery Method 11/10/22 12:30 Medical Decision Making Lab Data Labs: Lab Results 11/10/22 11/10/22 11/10/22 Range/Units 13:27 13:27 13:27 WBC 6.53 (4.50-11.00) K/uL RBC 4.88 (4.00-5.20) m/uL Hgb 13.7 (12.0-16.0) gm/dL Hct 41.5 (33.0-51.0) % MCV 85 (80-100) fL MCH 28 (26-34) pg MCHC 33 (32-36) gm/dL RDW Coeff of [place]ron[place] 13.1 (11.5-15.5) % Plt Count 208 (140-440) K/uL Neut % (Auto) 61.8 (42.0-72.0) % Lymph % (Auto) 23.7 (20-44) % Fergus % (Auto) 12.4 H (0.0-11.0) % Eos % (Auto) 1.5 (0.0-7.0) % Baso % (Auto) 0.3 (0.0-3.0) % Neut # (Auto) 4.03 (1.7-7.0) K/uL Lymph # (Auto) 1.55 (0.90-2.90) K/uL Fergus # (Auto) 0.80 (0.00-0.90) K/UL Eos # (Auto) 0.10 (0.00-0.50) K/uL Baso # (Auto) 0.02 (0.00-0.30) K/uL D-Dimer Quant (PE/DVT) 0.80 H (0.00-0.50) ug/ml Sodium 138 (135-149) mmol/L Potassium 3.9 (3.6-5.1) mmol/L Chloride 107 (96-114) mmol/L Carbon Dioxide 26 (20-32) mmol/L BUN 8 (5-24) mg/dL Creatinine 0.6 (0.5-1.5) mg/dL Estimated Creat Clear 122.51 Estimated GFR 120 ml/min Glucose 85 (60-115) mg/dL Calcium 8.9 (8.4-10.6) mg/dL Total Bilirubin 0.4 (0.1-1.5) mg/dL Direct Bilirubin 0.2 (0.0-0.5) mg/dL AST 27 (12-35) U/L ALT 32 (4-35) U/L Alkaline Phosphatase 62 (40-150) U/L C-Reactive Protein 7.5 H (0.5-1.0) mg/dL NT-Pro-B Natriuret Pep 32 pg/mL Total Protein 7.0 (6.0-8.3) g/dL Albumin 4.1 (3.3-5.0) g/dL Discharge Plan Discharge Clinical Impression: COVID-19 Patient Disposition: Home, Self-Care Condition: Stable Instructions: COVID-19 (Coronavirus Disease 2019) (ED) Additional Instructions: Inhaler as needed. Return for severe shortness of breath, oxygenation below 90%, or other worsening. Otherwise, primary care follow-up if not improving over the next couple of weeks. Prescriptions: No Action epinephrine 0.3 mg/0.3 mL auto-injector 0.3 mg IM PRN PRN zinc sulfate 50 mg zinc (220 mg) capsule 50 mg PO DAILY DHA 200 mg capsule 200 mg PO DAILY cholecalciferol (vitamin D3) 10 mcg (400 unit) capsule 10 mcg PO DAILY vitamin B complex [B Complex-Vitamin B12] Tablet 1 tab PO DAILY fexofenadine [Ania Allergy] 180 mg tablet 360 mg PO BID amitriptyline 50 mg tablet 50 mg PO HS Qty: 90 3RF Rx Instructions: Take 1 tab PO QHS sertraline 100 mg tablet 150 mg PO DAILY docusate sodium 100 mg Capsule 100 mg PO BID Qty: 100 0RF polyethylene glycol 3350 [Miralax] 17 gram Powder In Packet 17 g PO DAILY Qty: 100 0RF ibuprofen 600 mg Tablet 600 mg PO Q6H PRN (Reason: Pain) 15 Days Qty: 60 0RF sennosides-docusate sodium [Stool Softener-Laxative] 8.6-50 mg Tablet 1 tab PO BID PRN (Reason: constipation) Qty: 100 0RF Preparation H Maximum Strength 0.25-1 % cream 1 applic TX QID PRN (Reason: rectal discomfort) Qty: 51 3RF Follow Up/Referrals: Celina Espinoza MD [Primary Care Provider] - Stand Alone Forms: [facility] Info Instructions
[2022-11-10 13:34] LABS: Basophils Absolute Auto 0.02 K/uL (0.00-0.30); Basophils Percent Auto 0.3 % (0.0-3.0); Eosinophils Percent Auto 1.5 % (0.0-7.0); Hematocrit 41.5 % (33.0-51.0); Hemoglobin* 13.7 gm/dL (12.0-16.0); Immature Granulocytes Abs Auto 0.02 K/uL (0.00-0.30); Immature Granulocytes Pct Auto 0.3 %; Lymphocytes Absolute Auto 1.55 K/uL (0.90-2.90); Lymphocytes Percent Auto 23.7 % (20-44); Mean Corpuscular HGB Conc 33 gm/dL (32-36); Mean Corpuscular Hemoglobin 28 pg (26-34); Mean Corpuscular Volume 85 fL (80-100); Monocytes Percent Auto 12.4 % (0.0-11.0); Neutrophils Absolute Auto 4.03 K/uL (1.7-7.0); Neutrophils Percent Auto 61.8 % (42.0-72.0); Platelet Count* 208 K/uL (140-440); RDW Coefficient of Variation % 13.1 % (11.5-15.5); Red Blood Count 4.88 m/uL (4.00-5.20); White Blood Count* 6.53 K/uL (4.50-11.00)
[2022-11-10 13:37] LABS: Slide Review Reflex No
[2022-11-10 13:51] LABS: Albumin* 4.1 g/dL (3.3-5.0); Chloride* 107 mmol/L (96-114)
[2022-11-10 13:52] LABS: Potassium* 3.9 mmol/L (3.6-5.1); Sodium* 138 mmol/L (135-149)
[2022-11-10 13:54] LABS: Creatinine* 0.6 mg/dL (0.5-1.5); Est. Creatinine Clearance* 122.51; Estimated Glomerular Filt Rate 120 ml/min
[2022-11-10 13:55] LABS: Alanine Aminotransferase* 32 U/L (4-35); Alkaline Phosphatase* 62 U/L (40-150); Aspartate Amino Transferase* 27 U/L (12-35); Bilirubin Direct* 0.2 mg/dL (0.0-0.5); Bilirubin Total* 0.4 mg/dL (0.1-1.5); Blood Urea Nitrogen* 8 mg/dL (5-24); Carbon Dioxide* 26 mmol/L (20-32); Glucose* 85 mg/dL (60-115)
[2022-11-10 13:56] LABS: Calcium* 8.9 mg/dL (8.4-10.6)
[2022-11-10 13:58] LABS: C Reactive Protein* 7.5 mg/dL (0.5-1.0)
[2022-11-10 14:03] LABS: NT Pro B Type NatriureticPept* 32 pg/mL
--- NOTE | 2022-11-10 15:37 | CRLHL7_ITS ---
For Patients: As a result of the Century Cures Act, medical imaging exams and procedure reports are released immediately into your electronic medical record. You may view this report before your referring provider. If you have questions, please contact your health care provider. INDICATION: covid, shortness of breath CT CHEST WITH CONTRAST TECHNIQUE: Multidetector axial CT imaging was performed through the chest following intravenous contrast administration using 95mL Isovue 370. COMPARISON: None. FINDINGS: No filling defects are identified in the pulmonary arterial tree to suggest pulmonary emboli. The thoracic aorta shows no evidence of dissection. The lungs are clear aside from mild dependent atelectasis. No pleural effusions. No mediastinal masses or abnormally enlarged lymph nodes. The heart appears within normal limits. Visualized bones show no significant findings. Included portions of the upper abdomen are unremarkable. IMPRESSION: No pulmonary emboli, pneumonia, or other acute intrathoracic abnormalities identified. IRLANDA SILVESTRE MD [facility] Please note that all CT scans at this facility use dose modulation, iterative reconstruction, and/or weight-based dosing when appropriate to reduce radiation dose to as low as reasonably achievable. Dictated by: Layton Silvestre MD @ 11/10/2022 17:47:53 (Electronically Signed)
== END 2022-11-10 18:05 | disposition home or self-care (01) ==
PROVIDERS: Emergency Provider Emergency Medicine; PCP Family Medicine
DX: U07.1 COVID-19 (principal)
CPT/HCPCS: 36415; 71260; 80048; 80076; 83880; 85025; 85379; 86140; 94640; 99284; 99285; Q9967

== ENCOUNTER 2023-06-11 07:30 | Outpatient (RCR) | payer OTHER, SELFPAY ==
--- NOTE | 2023-05-29 14:20 | OT.OPOE ---
OT Outpatient Ortho Eval OT Outpatient Ortho Eval* Start: 05/28/23 11:31 Freq: Status: Active Protocol: Document 05/28/23 11:32 KAITLIN (Rec: 05/28/23 12:20 KAITLIN [id number]) E-signed By Bethanie Gomez, OTR/L, CLT OT OP Ortho Eval Details Complexity Complexity Low Insurance Information Other Insurance [employer] Outpatient History/Precautions Current Condition/Medical Diagnosis Referring Provider Dr. Celina Espinoza Treatment Diagnosis R wrist pain, R elbow pain, muscle weakness Date of Onset Chronic, years but worse the past 4 months Other Precautions Patient has had no prior therapy to treat her R wrist or elbow. Medications: amitriptyline 50 mg PO HS cholecalciferol (vitamin D3) 10 mcg PO DAILY epinephrine 0.3 mg IM PRN PRN fexofenadine (Ania Allergy) 360 mg PO BID ibuprofen 600 mg PO Q6H PRN 15 days phentermine 37.5 mg PO QDAY sertraline 100 mg PO DAILY Medical Conditions Depression,HTN Other Conditions BMI 39.0-39.9, adult History of severe pre- eclampsia 3rd Normal vaginal delivery x2. /11/23, boy, 8#6oz, Talyn 40w2d. 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 Relationship status: to a male partner. 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 Education: 4 year college degree. Tobacco use: Former smoker, quit during her 1st in 2008. 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 While this is not listed as a workmans comp case-patient's repetitive work patterns are directly contributing to her symptoms Social History Critical Job Demands Pull,Lift,Other Other Critical Job Demands fine motor, grasping, using instrument/dental tools, requires motor control Hobbies Very busy as a mother with 3 children Ortho Subjective Subjective Subjective Patient was referred to Dr. Peterson and seen in clinic 05/16. Presented with right wrist pain and numbness & reporting numbness and tingling in her ring and small fingers. Occasionally having symptoms in the thumb, index and middle fingers. She has had symptoms for several years which have been progressive. She feels like she has lost some control of her hand and fine motor skills. 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 She does have nerve symptoms at night and trialed wrist bracing every night for months w/o a change in her symptoms. There is pain in the dorsum of the hand, into the wrist, forearm and elbow. She is right-hand dominant, does not have diabetes, does not smoke cigarettes and is not on blood thinners. She has tried a wrist brace, ibuprofen and activity modification. She has not had an injection for these symptoms and has not had surgery for these symptoms. Pain Assessment Pain Present Pain Present Pain Reported Location Right Elbow Description Tightness,Throbbing,Chronic, Tender Right Wrist Description Radiating,Cramping,Pulling, Shooting Intensity 7 Range of Motion and Strength Shoulder Range of Motion and Strength Shoulder Range of Motion and Strength Bilateral, WNL, strength is 4/ 5 Elbow/Forearm Range of Motion and Strength Elbow/Forearm Range of Motion and Bilateral, WNL, strength is 4/ Strength 5 Wrist Range of Motion and Strength Wrist Range of Motion and Strength Bilateral, WNL, strength is 4/ 5 Hand/Finger/Thumb Range of Motion and Strength Hand/Finger/Thumb Range of Motion and Full AROM, able to make a Strength composite fist with both hands , grasp is weaker on the R ( dominant) hand Hand Pinch/Professional System Administrator Strength Hand Left Professional System Administrator Strength Position 1 (lbs) 85 Professional System Administrator Strength Position 2 (lbs) 60 Lateral Pinch Strength (lbs) 11 Three Point Pinch (lbs) 13 Tip Pinch Strength (lbs) 9 Right Professional System Administrator Strength Position 1 (lbs) 44 Professional System Administrator Strength Position 2 (lbs) 8 Lateral Pinch Strength (lbs) 12 Three Point Pinch (lbs) 9 Tip Pinch Strength (lbs) 6 Upper Extremity Special Tests Median Nerve-Carpal Tunnel Wrist Phalen Test Negative Right,Positive Right Wrist Tinel Test right OT Problems Problems Problems Decreased Strength,Decreased Range of Motion,Decreased Dexterity,Pain,Decreased Coordination,Sensory Sensitivity,Lifting,Gripping, Pinching Other Problems Writing,Opening Containers, Dressing,Computer,Fasteners, Sleeping Patient Potential Good Assessment Assessment Assessment 37 year old female was seen by her PCP on 05/04/23 with complaints of R (dominant UE) pain, tingling, weakness (few times she has dropped things) and significant difficulty at work during 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 She has also noticed that her 4th and 5th finger feel cold (some diminished sensation). She has never had any significant trauma or prior injuries to the R UE. Examiniation of the Right Hand /Wrist: No surgical scars, no atrophy; Poor sr. consultant strength (R hand 44 lbs and L hand 85 lbs ); Tinels over the median nerve at the R hand was positive, L hand negative. AROM of the wrist is full, but tenderness at end ranges in both flexion and extension. Patient is able to make a full composite fist. R Elbow and R shoulder both have full AROM in all planes/pivots. MMT of the R wrist, elbow and shoulder are 4/5. Therapist reviewed Imaging report: PA and Lateral views of the right wrist were obtained on [address] [facility]. These show ulnar negative variance. There is no obvious bony or soft tissue mass. Carpal relationships are normal. Patient works Sunday -Sunday 7:15 am -5:30pm and reports her pain/nerve symptoms are greatly impacting her job functions, as well as her home life (mother to 3 children). While she has not had formal therapy, she has trialed night bracing at her wrist, stretching and exercise on her own without any relief . Patient has a f/u with ortho next week to review EMG results. *no available results at time of EVAL. Occupational Therapy Treatment Plan - OP Potential Rehabilitation Potential Good Barriers Barriers to goal attainment Chronic condition-has been going on for years-worse in the past 4 months Trialed NOC wrist bracing with no noticeable success-patient reports that she does not sleep with her R elbow flexed. Of concern: patient reporting that she takes the max amount of over the counter ibuprofen daily-requested that patient share this information with her ortho provider at f/u apt Set Goals Goals Set with Patient Yes Goals Goals 1. Patient will increase R ( dominant) hand sr. consultant strength from 44 lbs to >60 lbs in order to return to everyday tasks w/o fear of dropping items. 2. Patient will verbalize 3 activity modifications to decrease abusive/overloading of the tendons. 3. Through activity participation in skilled therapy sessions, and consistency in performing a customized HEP, patient will improve capacity of tendons and muscles to manage load in order to have less pain with ADLs, work, leisure activities and IADLs. 4. Patient will be Indep with an individualized, comprehensive HEP with participation >15 mins per day 5-6 days per week. Target Date 8 weeks Treatment Plan Treatment Plan Evaluation,Edema Control, Iontophoresis,Joint Mobilization,Manual Therapy, Ultrasound,Therapeutic Exercise,Education Expected Frequency 1-2x Week Expected Duration 8-10 Weeks Home Program Home Program Home Program Initiated Home Program Specifics 1st handout was general information on activity modification- The Second sheet is the Wrist Flexion/Extension Stretches- which are done throughout the day The Third sheet is how to perform cross friction massage to the lateral epicondyle/ extensor tendons w/ Ice massage. The fourth/fifth sheet are starting with forearm/wrist Isometric strengthening (* this would be done PRIOR to starting with actual weights- pages 6-10) The last sheet is contrast baths for hands Median Nerve Glides and Nerve Flossing Certification Certification I Certify That: Therapy Services Provided, Therapy Plan Established, Therapy Plan Reviewed Recertification Information Recertification Information Initial Certification Date 05/28/23 Recertification Due Date 08/26/23 Provider Signature Shows Agreement With POC & Medical Necessity Physician Comment/Change Comment or Changes Physician NPI Number #
== END 2023-09-25 15:19 | disposition home or self-care (01) ==
PROVIDERS: PCP Family Medicine; Visit Provider Family Medicine
DX: G56.01 Carpal tunnel syndrome, right upper limb (principal); M77.11 Lateral epicondylitis, right elbow; M62.81 Muscle weakness (generalized); M25.521 Pain in right elbow; M25.531 Pain in right wrist; Z51.89 Encounter for other specified aftercare
CPT/HCPCS: 97035; 97110; 97165; X5282

== ENCOUNTER 2023-06-14 10:57 | Outpatient (CLI) | payer OTHER, SELFPAY | END 2023-06-14 10:58 | disposition home or self-care (01) | LOC: NFLDREF 06-15 07:46 | PROVIDERS: PCP Family Medicine; Referring Provider Family Medicine; Visit Provider Advanced Practice Midwife | DX: R39.9 Unspecified symptoms and signs involving the genitourinary system (principal) | CPT/HCPCS: 87086 ==

== ENCOUNTER 2023-06-28 06:54 | Day surgery (SDC) | payer OTHER, SELFPAY ==
[2023-06-28] VITALS (10 sets, daily range): BP systolic 122–137; BP diastolic 68–81; PULSE 78–93; RESP 16; TEMP 36.3–36.5; O2SAT 98–99; BMI 37.5
[2023-06-28] MEDS: lidocaine HCL 2 % MULTIDOSE 20 ML VIAL INJECTION (07:43)
[2023-06-28] MEDS: BUPIVACAINE 0.5% 30 ML INJECTION (07:43)
--- NOTE | 2023-06-28 08:27 | P.ORPRC_ITS ---
Procedure Note Date of procedure: 06/28/23 Procedure: Preop diagnosis: Right upper extremity carpal tunnel syndrome Postop diagnosis: Right upper extremity carpal tunnel syndrome Procedure: Right upper extremity carpal tunnel release Anesthesia: Local Surgeon: Yasmany Peterson MD surveyor's assistant: BRONWYN Sawyer EBL: 5 mL Complications: None Specimens: None Drains: None Indications: The patient has a history of right upper extremity carpal tunnel syndrome sympto ms. Despite appropriate nonoperative management consisting of nighttime bracing and occupational therapy they continue to have symptoms. Operative intervention was recommended. The risks, benefits alternatives and expected outcomes were discussed in detail. These included but were not limited to: Infection, bleeding, injury to blood vessel or nerve, venous thromboembolism. All questions were answered to their satisfaction. The patient was placed supine on the operating room table. Local anesthesia was established with 0.5% Marcaine without epinephrine and 2% lidocaine without epinephrine. The hand was prepped and draped in usual sterile fashion. The limb was elevated the forearm pneumatic tourniquet was inflated to 250 mm of mercury. A longitudinal incision was made centered over the radial border of the ring finger at the base of the palm. Subcutaneous dissection was sharply taken through the palmar fascia and the palmaris brevis to the transverse carpal ligament. The ligament was divided in line with the incision. Proximal and distal dissection was carried with tenotomy and Metzenbaum scissors for a wide decompression of the carpal tunnel. The tourniquet was released , bleeding was controlled with direct pressure. The wound was closed with a 3-0 nylon. A bulky dry dressing was applied, sponge and needle counts were correct x 2. The patient tolerated the procedure well, there were no apparent complications. They were sent to same day surgery in satisfactory condition. Plan: Use of the hand as tolerates. Discontinue the intraoperative dressing on postoperative day 3 and may get the wound wet as tolerates. Follow up in the office in 2 weeks for a wound check and suture removal.
== END 2023-06-28 08:30 | disposition home or self-care (01) ==
PROVIDERS: PCP Family Medicine; Visit Provider Orthopaedic Surgery
PROC: (CPT 64721; principal; 2023-06-28 07:45)
DX: G56.01 Carpal tunnel syndrome, right upper limb (principal)
CPT/HCPCS: 64721; J0665

== ENCOUNTER 2023-11-08 10:43 | Outpatient (CLI) | payer OTHER, SELFPAY | END 2023-11-08 10:44 | disposition home or self-care (01) | PROVIDERS: PCP Family Medicine; Visit Provider Family Medicine | DX: L50.8 Other urticaria (principal); M25.50 Pain in unspecified joint; M79.2 Neuralgia and neuritis, unspecified; R25.1 Tremor, unspecified; T78.2XXA Anaphylactic shock, unspecified, initial encounter | CPT/HCPCS: 80053; 84443; 86039; 86140; 86431; 86812 ==

== ENCOUNTER 2024-02-06 08:39 | Outpatient (CLI) | payer OTHER, SELFPAY ==
--- OUTSIDE RECORDS SUMMARY | 2024-02-06 08:41 | XMS_ITS | Clinical Summary ---
Author Organization [facility] Address [place], [place] [address] Care Team Providers Care Health Care Attorney Name Role Phone Jorje Goodwin MD Unavailable [phone] Celina Espinoza MD Primary Care Provider + Allergies Active Allergy Reactions Criticality Noted Date Comments Mupirocin Rash High 01/04/2022 Medications Medication Sig Dispensed Refills Start Date End Date Status vitamin-folic acid 1 mg ( FORMULA) tablet/capsule Take 1 tablet by mouth once daily. 0 04/20/2014 Active cholecalciferol (VITAMIN D) 1,000 unit tablet Take 1 tablet by mouth once daily. 0 04/20/2014 Active LUTERA, 28, 0.1-20 mg-mcg tablet Take 1 tablet by mouth once daily. 07/15/2014 Active sertraline (ZOLOFT) 50 mg tablet Take 1 tablet by mouth once daily. 0 10/21/2016 Active FA-B Com&C-Rice Bran-Shelley Hips 400-500 mcg-mg tab Daily Active Cholecalciferol-Soy Isoflavone 2,000-64 unit-mg tab Bedtime Active amitriptyline (ELAVIL) 50 mg tablet TAKE 1 TABLET BY MOUTH EVERYDAY AT BEDTIME 01/26/2022 Active Ferrous Gluconate 324 mg (38 mg iron) tablet Daily Active L norgest/e.estradioL- e.estrad (SEASONIQUE) 0.15 mg-30 mcg (84)/10 mcg (7) tab Take 1 Tablet by mouth once daily. 01/04/2022 Active zinc sulfate 50 mg zinc (220 mg) capsule Daily Active polyethylene glycol-electrolyte (GOLYTELY) 236-22.74-6.74 -5.86 gram suspensionIndication s:Encounter for screening colonoscopy Drink 3 liters (3/4 of bottle) the day prior to colonoscopy and 1 liter (remaining 1/4 of bottle) 6 hours prior to colonoscopy appointment 4000 mL 03/08/2022 Active Active Problems No known active problems Social History Tobacco Use Types Packs/Day Years Used Date Smoking Tobacco: Former Cigarettes Q uit: 02/15/2013 Smokeless Tobacco: Never Tobacco Cessation:Counseling Given: Yes Alcohol Use Standard Drinks/Week Comments Yes 0 (1 standard drink = 0.6 oz pur e alcohol) 1 times a week Social Connections Answer Date Recorded Frequency of Communication with Friends and Fami ly Not on file 03/08/2022 Sex and Gender Information Value Date Recorded Sex Assigned at Not on file Gender Identity Not on file Sexual Orientation Not on file Obstetrics History Last Filed Vital Signs Vital Sign Reading Time Taken Comments Blood Pressure 143/94 03/08/2022 4:15 PM CDT Pulse 99 03/08/2022 4:15 PM CDT Temperature 36.7 ??C (98.1 ??F) 08/21/2017 5:34 PM CS T Respiratory Rate - - Oxygen Saturation 98% 03/08/2022 4:15 PM CDT Inhaled Oxygen Concentration - - Weight 113.9 kg (251 lb) 03/08/2022 4:15 PM CDT Height 167 cm (5' 5.75) 08/21/2017 5:34 PM DROP MAN Body Mass Index 40.82 08/21/2017 5:34 PM DROP MAN Plan of Treatment Health Maintenance Due Date Last Done Comments Tdap 1998 Depression screening for age 12+ 1999 HIV for age 15-65 2002 Hepatitis C screening for age 18-79 2005 Tetanus booster 2007 BMI (ht and wt on same day) for age 18+ 08/21/2018 08/21/2017, 10/21/2016 COVID-19 vaccine series (2022- season) 2023 Pap test for age 21-65 10/11/2023 , 10/11/2020, 02/15/2018, Additional history exists Influenza for age 9-49 05/18/2024 Pneumococcal series for age 6-64 Aged Out No longer eligible based on patient's age to complete this topic Procedures Procedure Name Priority Date/Time Associated Diagnosis Comments CHEESE WRAPPER THIN PREP PAP SCREEN IMAGED Routine 10/11/2020 2:30 PM DROP MAN from Last 3 Months or Most Recently Relevant to Health Maintenance Results * CHEESE WRAPPER THIN PREP PAP SCREEN IMAGED (10/11/2020 2:30 PM DROP MAN) Case Report Gynecologic Cytology Report ? Case: [id number] ? Authorizing Provider: ??Ashlee Bonner MD ?Collected: ? 10/11/2020 1430 ? Ordering Location: ? [facility] ?Received: ?10/13/2020 1041 ? First Screen: ?Tena Casillas ? Specimen: ?CHEESE WRAPPER ThinPrep Vial Screening, Cervical/Vaginal ? 10/21/2020 5:13 PM DROP [facility] INTERPRETATION/ RESULT NEGATIVE FOR INTRAEPITHELIAL LESION OR MALIGNANCY (NIL) (none) 10/21/2020 5:13 PM [facility] IMEN ADEQUACY Satisfactory for evaluation Endocervical component present 10/21/2020 5:13 PM DROP MAN [facility] HPV REQUEST HPV and PAP 10/21/2020 5:13 PM DROP MAN [facility] Date of LMP 10/10/2020 10/21/2020 5:13 PM DROP [facility] Last Pap Date 02/15/2018 10/21/2020 5:13 PM DROP [facility] Last Pap Result NIL 5:13 PM DROP MAN [facility] Comment:negative HPV Additional Information 10/21/2020 5:13 PM DROP MAN [facility] Comment: Interpreted at [facility] - [address], [place] [address] Automated Review Successful 10/21/2020 5:13 PM [facility] Comment:Specimen processed s uccessfully by automated table games floor supervisor device, ThinPrep Imaging System, [employer] ANCILLARY TESTING CHEESE WRAPPER HPV Ordered, Please see separate report 10/21/2020 5:13 PM [facility] Note The pap test is a screening technique, not a diagnostic procedure. It is used primarily to screen for squamous cancers and precursor lesions. Published studies have shown that it is subject to both false negative and false positive results. The pap test should not be used as the sole means to diagnose or exclude pre-malignant and malignant lesions. 10/21/2020 5:13 PM [facility] Other (Cervical/Vagina l) 10/11/2020 2:30 PM DROP MAN 10/13/2020 10:41 AM DROP MAN Ashlee Bonner MD PATHOLOGY/CYTOLOGY [facility] [address] [place] [address], [place] from Last 3 Months or Most Recently Relevant to Health Maintenance Care Teams Health Care Attorney Relationship Specialty Start Date End Date eClina Espinoza MD [address] [place] [address] PCP - General Family Practice 03/08/22 Jorje Goodwin MD [address] [place] [address] Sports Medicine 12/12/11
--- NOTE | 2024-02-06 08:45 | MM_ITS ---
Patient: CALOS GONZALEZ Facility:?[facility] Patient ID:?[id number] Site Patient ID:?[id number] Site :?1985 Study:?XRay-Breast Bilateral 3D W/CAD-02/06/2024 9:25:45 AM Ordering Physician:Tabitha Final Report: DIGITAL DIAGNOSTIC BILATERAL MAMMOGRAM USING TOMOSYNTHESIS AND COMPUTER-AIDED DETECTION RIGHT BREAST/AXILLARY ULTRASOUND CLINICAL HISTORY: RIGHT breast lump. COMPARISON: 06/12/2022, 11/04/2021, 06/21/2020. TECHNIQUE: Digital BILATERAL mammogram in four projections with computer-aided detection. Tomosynthesis was used in this interpretation. Real-time ultrasound imaging of RIGHT breast with imaging documentation. BREAST COMPOSITION: There are areas of scattered fibroglandular density. FINDINGS: 3D CC/MLO bilateral mammogram images submitted. No suspicious mass or architectural distortion. No adenopathy or suspicious calcifications. Targeted RIGHT breast ultrasound performed and in the RIGHT axilla corresponding to the area of concern. Normal subcutaneous tissues are present without fluid collection or mass. No adenopathy. IMPRESSION: No suspicious findings. No evidence of malignancy. RECOMMENDATIONS: Routine screening mammography. BI-RADS Category 2: Benign A lay language report of this examination will be provided to the patient. Dictated by Jake Davis MD @ 02/06/2024 10:43:44 AM j/Dictated by: Jake Davis MD @ 02/06/2024 10:44:00 AM Signed by:?Jake Davis MD @02/06/2024 12:02:20 PM (Electronic Signature)
--- NOTE | 2024-02-06 09:15 | US_ITS ---
Patient: CALOS GONZALEZ Facility:?[facility] Patient ID:?[id number] Site Patient ID:?[id number] Site :?1985 Study:?US-Breast Right DSM TO READ-02/06/2024 9:18:18 AM Ordering Physician:?YULIANA PERKINS Final Report: PLEASE SEE DIGITAL DIAGNOSTIC BILATERAL MAMMOGRAM PERFORMED SAME DAY CRL:rock wilkerson/Dictated by: Jake Davis MD @ 02/06/2024 10:44:00 AM Signed by:?Jake Davis MD @02/06/2024 12:02:18 PM (Electronic Signature)
== END 2024-02-06 08:40 | disposition home or self-care (01) ==
LOC: MAMMO 08:40
PROVIDERS: PCP Family Medicine; Visit Provider Registered Nurse
DX: N63.10 Unspecified lump in the right breast, unspecified quadrant (principal)
CPT/HCPCS: 76642; 77066; G0279

== ENCOUNTER 2024-02-08 08:00 | Outpatient (RCR) | payer OTHER, SELFPAY ==
--- NOTE | 2023-10-08 20:00 | OT.OPOE ---
OT Outpatient Ortho Eval OT Outpatient Ortho Eval* Start: 10/08/23 19:07 Freq: Status: Active Protocol: Document 10/08/23 19:07 SIENNA (Rec: 10/08/23 19:56 LCN [id number]) E-signed By Flaca Meyer, OTR/L, CLT OT OP Ortho Eval Details Complexity Complexity Low Insurance Information Other Insurance Cigna Outpatient History/Precautions Current Condition/Medical Diagnosis Referring Provider Jenn Ram PA-C, Dr. Peterson Treatment Diagnosis H/O CTR R wrist, R Dequervain' s Tenosynovitis, overuse syndrome R hand, Other Precautions hypersensitive R CTR scar. miprocin. Has had stress related anaphylaxis requiring ambulance out of work setting in 2020, now has epi pen. 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 Has PCOS, with TABD hysterectomy 2 years ago ( kept ovaries) and has been working on the metabolism issues after with [facility] ( Dr. Delfin Browne and RICHAR Ferrer, 17# loss in in the past year, doing mostly [employer] , ins no longer covering) Pregnancies had BP issues, pre -eclampsia and acquired bladder issues following first . Takes Amtriptylene for nerve pain, BP medications, bendryll during her itching /pre-epi attacks. Medical/Functional History Medical History Reviewed Yes Prior Level of Function/Mobility Pt has supportive and 14,9 and 4 y/o children who have wrestling and dance schedules following her 10 hr work days T-. Pt describes that her health shifted sharply after helping me mom with brain cancer x 10 weeks in fall/winter of 2019 and had her living with her. 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 Had done trial of OT summer and she would get good help after sessions with quick return of her dense numbness 03/26. Had her CTR procedure with Dr. Peterson in Jun 2023. (Also had R lateral epicondyle sx prior to surgery recovered pretty well with the rest during post op recovery.) Symptoms of R TH/IF/MF numbness stated to return in 6 weeks after her procedure, especially so after having an episode of having ' large pop/shot of pain' at R [facility] base/snuff box area 3 weeks ago ~09/18/23. It happened while in hooked flexion during sustained grasp and pulling/guiding wire in tight space at back of patient's mouth at orthodontia office. Has been having random twitches in B heads that can occur at rest ( shows video from L hand this am) and during fatigue at work. Pain Assessment Pain Present Pain Present Pain Reported Location R wrist, thumb Description Burning,Tightness,Radiating, Pressure,Pulling,Heaviness Intensity 5 Range of Motion and Strength Hand/Finger/Thumb Range of Motion and Strength Hand/Finger/Thumb Range of Motion and Good shoulder /elbow ROM. Strength Myofascial thickness at R lateral epicondyle area. Wr EX to 50 of 70 degrees R. Wrapper Sorter hand to 90% of full fist, feels tight per edema fullness in palm. R spectroscopist strength improves from 45 to 60# with kinesiotaping for De Quervain's in place. Hypersensitive at R CTR, 7/10 irritating to don /doff gloves at work. Does do self scar massage using emollient daily, but rubbing towels and wearing clothing textures over the scar is very irritating, extends to upper 1/3 transverse line of R forearm. No pain with L spectroscopist/pinch. R is 3/10 pn with spectroscopist, 5/10 at [facility] udring padron pinch , no pain with 3 pt pinch R. Hand Pinch/Wrapper Sorter Strength Hand Right Wrapper Sorter Strength Position 1 (lbs) 45 Wrapper Sorter Strength Position 2 (lbs) 38 Lateral Pinch Strength (lbs) 10 Three Point Pinch (lbs) 14 Left Wrapper Sorter Strength Position 1 (lbs) 90 Wrapper Sorter Strength Position 2 (lbs) 90 Lateral Pinch Strength (lbs) 15 Three Point Pinch (lbs) 19 OT Objective Data Additional Information Objective Additional Information Diffuse nerve symptoms for B UE. Adityakan's R 5-6/10 intensity for all finger tips at 12 sec, recovers in 30 seconds. L palm to finger tips 7/10 intensity after 25 sec, takes 20 sec to recover. (L Thumb twitches after). ULTT of R ulnar nerve has moderate sx in post 1 ( IF/MF/RF numbness) Pos 2 (IF/TH paresthesia) Pos 3 tremors, tingling palm to FT. Radial nerve at 5 sec gets tremors, cold hand, numbness at RF/SF/TH. L is (- ) but then gets L hand tremor after. Corey's (+) B. Loses power, dexterity with tools intermittently through work day, more at end of day. Is dsafely able to manage during patient care, but suffers more after. OT Problems Problems Problems Decreased Strength,Decreased Dexterity,Pain,Decreased Coordination,Sensory Sensitivity,Gripping,Pinching Problems Comments combined motions of WR FL, tear drop pinch/rotating dental tools drawing /pulling wires in brackets with precise angles. Other Problems Writing,Opening Containers, Fasteners Assessment Assessment Assessment Given Vangie's ongoing symptoms of edema, scar pain/ sensitivity, numbness ROM and strength loss of R hand/wrist/ elbow limiting daily tasks, she would benefit from skilled OT to address these areas. I am suspecting that her auto immune overlay in contributing to longer recovery and overall neural sensitivity of B UE and would benefit from neural calming strategies using manual lymphatic techniques, kinesiotaping, proprioceptive input, postural awareness and self treatment strategies. Occupational Therapy Treatment Plan - OP Potential Rehabilitation Potential Excellent Set Goals Goals Set with Patient Yes Goals Goals In 10 weeks, pt will demonstrate:? 1) Decreased pn to <2/10 80% of the time with sustained gripping, dental tool use and food prep. 2) I HEP for stretching, gradual strengthening and self mgmt strategies. 3) improved R spectroscopist strength to 70# and pinch to 15# with R thumb pain < 1/10. 4)??Pt to be fit with functional bracing (for CMC) and use adaptive strategies to protect joint integrity to support less pain with ADL. Treatment Plan Treatment Plan Evaluation,Edema Control,Joint Mobilization,Manual Therapy, Splinting,Ultrasound,Wound Care/Scar Management, Therapeutic Exercise,Self Care /Home Management,Education Expected Frequency 1-2x Week Expected Duration 8-10 Weeks Home Program Home Program Home Program Initiated Home Program Specifics Postural awareness/chin retraction glides, desensitization massage of scar with graded textures.
--- NOTE | 2024-02-08 17:14 | OT.OPODN ---
OT Outpatient Ortho Daily Note OT Outpatient Ortho Daily Note* Start: 10/08/23 19:07 Freq: Status: Active Protocol: Document 02/08/24 16:58 LCN (Rec: 02/08/24 17:12 LCN [id number]) E-signed By Flaca Meyer, OTR/L, CLT Type of Note Type of Note Type of Note Daily Note,Discharge Note,Note to MD Visit Number [id number] Insurance Information Other Insurance C[employer]a Outpatient History/Precautions Current Condition/Medical Diagnosis Referring Provider Jenn Ram PA-C, Dr. Peterson Other Precautions hypersensitive R CTR scar. miprocin. Has had stress related anaphylaxis requiring ambulance out of work setting in 2020, now has epi pen. 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 Has PCOS, with TABD hysterectomy 2 years ago ( kept ovaries) and has been working on the metabolism issues after with [facility] ( Dr. Delfin Browne and RICHAR Ferrer, 17# loss in in the past year, doing mostly [employer] , ins no longer covering) Pregnancies had BP issues, pre -eclampsia and acquired bladder issues following first . Takes Amtriptylene for nerve pain, BP medications, bendryll during her itching /pre-epi attacks. Medical/Functional History Medical History Reviewed Yes Prior Level of Function/Mobility Pt has supportive and 14,9 and 4 y/o children who have wrestling and dance schedules following her 10 hr work days T-F. Pt describes that her health shifted sharply after helping me mom with brain cancer x 10 weeks in fall/winter of 2019 and had her living with her. 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 Has not had tingling in R fingers for the past 2 weeks Having very mild sx remaining with cold in R RF/ SF. Gets stiff in cervicals. Pressure at R pec minor can induce the sx. Tender points at quadrangular space area. Is managing well with her HEP and has learned how to do self mobilizations using IASTM tool and foam roller. OT OP Daily Ortho Note/Assessment Manual Therapy Manual Therapy Minutes (minutes) 44 Manual Therapy Comments STM and positional releases to address tension at R SCM, scalenes middle and inferior heads, upper rib/ clavicle mobilization, triceps, /lat/teres major/ minor junctions (radiates to palmar tension and small finger numbness, coldness R side) scapular/thoracic traction with trunk rotation. Instrument-assisted soft tissue mobilization (IASTM) at triceps head ( rf/sf coldness , finger go numb with OH positioning and pin/stretch techniques). Cont IASTM at biceps insert, medial epicondyle, MCP heads of IF/ MF/RF/SF. Pin and stretch at hypothenar to base of SF and TH, medial elbow, triceps and SH ER/IR, H ABD ABdd of SH. Benefits of manual therapy & tissue mobilization includes alignment of fibroblasts and myofibroblasts, restoring gliding between layers of tissue, increase healing time & neurophysiological benefit due to rich proprioceptive input of fascia. Intent for manual therapy is to stimulate hyaluronic acid production and decrease viscosity, stimulate mechanoreceptors & restore gliding/sliding between layer. Pt shown how to do self mobilization using foam roller in side lying for lat /lower ribs to humerus/axilla margins and prone for paracervical positions. Total Occupational Therapy Time Occupational Therapy Minutes 44 Home Program Home Program Home Program Compliant Home Program Specifics 12/10/23-- sh er to scaption lift U 's w 2 strands of yellow therapy band. yellow therapy band H ABD T' s. 10/26/23-- open book stretch, introduced C clamp self mobilization. Postural awareness/chin retraction glides, desensitization massage of scar with graded textures. Hand Pinch/Supervisor Stave Cutting Strength Comments Comments 02/08/24 --Supervisor Stave Cutting improved to 65 # in pos 1/EL FL. 78# in position 2 ( EL EX and SH FL to 90). Good match with L side 66# pos 1 and 79# pos 2. At eval, R was 45/38# ) Davon's testing (-) for entire 60sec without tingling, only blanching at RF/MF tips with coldness. OT Problems Problems Problems Decreased Strength,Decreased Dexterity,Pain,Decreased Coordination,Sensory Sensitivity,Gripping,Pinching Problems Comments combined motions of WR FL, tear drop pinch/rotating dental tools drawing /pulling wires in brackets with precise angles. Other Problems Writing,Opening Containers, Fasteners Patient Potential Excellent Assessment Assessment Assessment No tremors in R fingers, mild pulling at FA to TH, no tingling or hand weakness after session. Pt agrees she is ready for d/c from OT. Likes the new foam roller strategies. Patient did really well w manual Tx: manual traction, myofascial release and stretching of shortened connective tissue of the R upper quadrant to hand for increasing comfort, while reducing edema to allow for increased AROM and functional use of the R (dominant hand). Occupational Therapy Treatment Plan - OP Potential Rehabilitation Potential Excellent Set Goals Goals Set with Patient Yes Goals Goals After 18 visits, Vangie demonstrates:? 1) Decreased pn to <2/10 80% of the time with sustained gripping, dental tool use and food prep. 02/08/24-- GOAL MET 2) I HEP for stretching, gradual strengthening and self mgmt strategies. 02/08/24-- GOAL MET 3) improved R fishing tool technician oil well strength to 70# and pinch to 15# with R thumb pain < 1/10. 02/08/24-- GOAL MET Suazo pinch 19# R adn 6 #L. 3 pt pinch is 23# B. 4)??Pt to be fit with functional bracing (for CMC) and use adaptive strategies to protect joint integrity to support less pain with ADL. - TBA 02/08/24-- GOAL MET, no longer needing bracing. Has night velcro foam brace to guard R elbow if flared up. Treatment Plan Treatment Plan Evaluation,Edema Control,Joint Mobilization,Manual Therapy, Splinting,Ultrasound,Wound Care/Scar Management, Therapeutic Exercise,Self Care /Home Management,Education Expected Frequency 1-2x Week Expected Duration 8-10 Weeks Occupational Therapy Billing Units Treatment Minutes Timed Treatment Minutes 44 Total Treatment Minutes 44 Billing Units Manual Therapy 3 Discharge Note Discharge Note Discharge Summary per subjective and goal section update above. Date of First Visit for Therapy 10/10/23 Date of Last Visit for Therapy 02/08/24 Initial Primary Functional Limitations/ Vangie Dick is an Concerns active, driven 37 y/o female who has been struggling with symptoms of CT syndrome since 2019 with R hand, L some also but tries to not address too many areas at once, overwhelmed. Had done trial of OT summer and she would get good help after sessions with quick return of her dense numbness 03/26. Had her CTR procedure with Dr. Peterson in Jun 2023. (Also had R lateral epicondyle sx prior to surgery recovered pretty well with the rest during post op recovery.) Symptoms of R TH/IF/MF numbness stated to return in 6 weeks after her procedure, especially so after having an episode of having ' large pop/shot of pain' at R [facility] base/snuff box area 3 weeks ago ~09/18/23. It happened while in hooked flexion during sustained grasp and pulling/guiding wire in tight space at back of patient's mouth at orthodontia office. Has been having random twitches in B heads that can occur at rest ( shows video from L hand this am) and during fatigue at work. Did feel sore after eval and interesting, had a headache. Interventions Provided During Treatment Evaluation,Edema Control,Joint Mobilization,Manual Therapy, Splinting,Ultrasound, Therapeutic Exercise,Self Care /Home Management,Education Recommendations/Reason for Discharge Met All Therapy Goals,Progress Cont w/HEP
== END 2024-02-08 17:53 | disposition home or self-care (01) ==
PROVIDERS: PCP Family Medicine; Visit Provider Physician Assistant
DX: M65.4 Radial styloid tenosynovitis [de Quervain] (principal); S66.911A Strain of unspecified muscle, fascia and tendon at wrist and hand level, right hand, initial encounter; Z51.89 Encounter for other specified aftercare
CPT/HCPCS: 80053; 84443; 86140; 97110; 97140; 97165; 97530; 97535; X5282

== ENCOUNTER 2024-05-15 12:39 | Outpatient (CLI) | payer OTHER, SELFPAY ==
--- OUTSIDE RECORDS SUMMARY | 2024-05-15 12:43 | XMS_ITS | Clinical Summary ---
Author Organization [employer] [facility] Address [place], [place] [address] Care Team Providers Care Management Scientist Name Role Phone Jorje Goodwin MD Unavailable [phone] Celina Espinoza MD Primary Care Provider + [...] 167 cm (5' 5.75) 08/21/2017 5:34 PM DIRECTOR AGRICULTURAL SERVICES Body Mass Index 40.82 08/21/2017 5:34 PM DIRECTOR AGRICULTURAL SERVICES Plan of Treatment Health Maintenance Due Date [...] Procedure Name Priority Date/Time Associated Diagnosis Comments DRAG SAWYER THIN PREP PAP SCREEN IMAGED Routine 10/11/2020 2:30 PM DIRECTOR AGRICULTURAL SERVICES from Last 3 Months or Most Recently Relevant to Health Maintenance Results * DRAG SAWYER THIN PREP PAP SCREEN IMAGED (10/11/2020 2:30 PM DIRECTOR AGRICULTURAL SERVICES) Case Report Gynecologic Cytology Report ? Case: [id number] ? Authorizing Provider: ??Ashlee Bonner MD ?Collected: ? 10/11/2020 1430 ? Ordering Location: ? [facility] ?Received: ?10/13/2020 1041 ? First Screen: ?Tena Casillas ? Specimen: ?DRAG SAWYER ThinPrep Vial Screening, Cervical/Vaginal ? 10/21/2020 5:13 PM DIRECTOR AGRICULTURAL SERVICES [employer] LAB[facility] ENTRAL LABORATORY INTERPRETATION/ RESULT NEGATIVE FOR INTRAEPITHELIAL LESION OR MALIGNANCY (NIL) (none) 10/21/2020 5:13 PM DIRECTOR AGRICULTURAL SERVICES [employer] [facility] ENTRAL LABORATORY IMEN ADEQUACY Satisfactory for evaluation Endocervical component present 10/21/2020 5:13 PM DIRECTOR AGRICULTURAL SERVICES [facility] LAB[facility] HPV REQUEST HPV and PAP 10/21/2020 5:13 PM DIRECTOR AGRICULTURAL SERVICES [facility] Date of LMP 10/10/2020 10/21/2020 5:13 PM DIRECTOR AGRICULTURAL SERVICES [facility] Last Pap Date 02/15/2018 10/21/2020 5:13 PM DIRECTOR AGRICULTURAL SERVICES [facility] Last Pap Result NIL 5:13 PM DIRECTOR AGRICULTURAL SERVICES [facility] Comment:negative HPV Additional Information 10/21/2020 5:13 PM DIRECTOR AGRICULTURAL SERVICES [facility] Comment: Interpreted at [facility] - [address], [place] [address] Automated Review Successful 10/21/2020 5:13 PM [facility] Comment:Specimen processed s uccessfully by automated supervisor television chassis repair device, ThinPrep Imaging System, [employer] ANCILLARY TESTING DRAG SAWYER HPV Ordered, Please see separate report 10/21/2020 5:13 PM [facility] Note The pap test is a screening technique, not a diagnostic procedure. It is used primarily to screen for squamous cancers and precursor lesions. Published studies have shown that it is subject to both false negative and false positive results. The pap test should not be used as the sole means to diagnose or exclude pre-malignant and malignant lesions. 10/21/2020 5:13 PM [facility] Other (Cervical/Vagina l) 10/11/2020 2:30 PM DIRECTOR AGRICULTURAL SERVICES 10/13/2020 10:41 AM DIRECTOR AGRICULTURAL SERVICES Ashlee Bonner MD PATHOLOGY/CYTOLOGY [facility] [address] [place] [address], [place] from Last 3 Months or Most Recently Relevant to Health Maintenance Care Teams Management Scientist Relationship Specialty Start Date End Date Celina Espinoza MD [address] [place] [address] PCP - General Family Practice 03/08/22 Jorje Goodwin MD [address] [place] [address] Sports Medicine 12/12/11
== END 2024-05-15 12:40 | disposition home or self-care (01) ==
LOC: NFLDREF 12:40
PROVIDERS: PCP Family Medicine; Visit Provider Physician Assistant
DX: N30.00 Acute cystitis without hematuria (principal); B96.20 Unspecified Escherichia coli [E. coli] as the cause of diseases classified elsewhere
CPT/HCPCS: 87086; 87186

== ENCOUNTER 2024-08-20 08:49 | Outpatient (CLI) | payer OTHER, SELFPAY ==
--- OUTSIDE RECORDS SUMMARY | 2024-08-20 08:53 | XMS_ITS | Clinical Summary ---
Author Organization [employer] [facility] Address [place], [place] [address] Care Team Providers Care Butter Maker Name Role Phone Jorje Goodwin MD Unavailable [phone] Celina Espinoza MD Primary Care Provider + [...] [phone] 03/08/2022 4:15 PM CDT Temperature 36.7 C (98.1 F) 08/21/2017 5:34 PM ENVIRONMENTAL ENGINEERING PROFESSOR Respiratory Rate - - Oxygen Saturation 98% 03/08/2022 4:15 PM CDT Inhaled Oxygen Concentration - - Weight 113.9 kg (251 lb) 03/08/2022 4:15 PM CDT Height 167 cm (5' 5.75) 08/21/2017 5:34 PM ENVIRONMENTAL ENGINEERING PROFESSOR Body Mass Index 40.82 08/21/2017 5:34 PM ENVIRONMENTAL ENGINEERING PROFESSOR Plan of Treatment Health Maintenance Due Date Last Done Comments Tdap 1998 Depression screening for age 12+ 1999 HIV for age 15-65 2002 Hepatitis C screening for age 18-79 2005 Tetanus booster 2007 BMI (ht and wt on same day) for age 18+ 08/21/2018 08/21/2017, 10/21/2016 Pap test for age 21-65 10/11/2023 , 10/11/2020, 02/15/2018, Additional history exists COVID-19 vaccine series ( season) 2024 Influenza for age 9-49 05/18/2024 Pneumococcal series for age 6-64 Aged Out No longer eligible based on patient's age to complete this topic Procedures Procedure Name Priority Date/Time Associated Diagnosis Comments PRODUCTION PLANNING MANAGER THIN PREP PAP SCREEN IMAGED Routine 10/11/2020 2:30 PM ENVIRONMENTAL ENGINEERING PROFESSOR from Last 3 Months or Most Recently Relevant to Health Maintenance Results * PRODUCTION PLANNING MANAGER THIN PREP PAP SCREEN IMAGED (10/11/2020 2:30 PM ENVIRONMENTAL ENGINEERING PROFESSOR) Case Report Gynecologic Cytology Report Case: [id number] Authorizing Provider: Ashlee Bonner MD Collected: 10/11/2020 1430 Ordering Location: [facility] Received: 10/13/2020 1041 First Screen: Tena Casillas Specimen: PRODUCTION PLANNING MANAGER ThinPrep Vial Screening, Cervical/Vaginal 10/21/2020 5:13 PM ENVIRONMENTAL ENGINEERING PROFESSOR [employer]- ENTRAL LABORATORY INTERPRETATION/ RESULT NEGATIVE FOR INTRAEPITHELIAL LESION OR MALIGNANCY (NIL) (none) 10/21/2020 5:13 PM ENVIRONMENTAL ENGINEERING PROFESSOR [facility] [employer] [facility] ENTRAL LABORATORY IMEN ADEQUACY Satisfactory for evaluation Endocervical component present 10/21/2020 5:13 PM ENVIRONMENTAL ENGINEERING PROFESSOR [facility] HPV REQUEST HPV and PAP 10/21/2020 5:13 PM ENVIRONMENTAL ENGINEERING PROFESSOR [facility] ENTRAL LABORATORY Date of LMP 10/10/2020 10/21/2020 5:13 PM ENVIRONMENTAL ENGINEERING PROFESSOR [facility] [employer] [facility] ENTRAL LABORATORY Last Pap Date 02/15/2018 10/21/2020 5:13 PM ENVIRONMENTAL ENGINEERING PROFESSOR [facility] ENTRAL LABORAT[facility] Last Pap Result NIL 5:13 PM ENVIRONMENTAL ENGINEERING PROFESSOR [facility] [employer] [facility] ENTRAL LAB[facility] Comment:negative HPV Additional Information 10/21/2020 5:13 PM ENVIRONMENTAL ENGINEERING PROFESSOR [facility] [employer] [facility] ENTRAL LABORAT[facility] Comment: Interpreted at [employer] [facility], Central Laboratory - [address], [place] [address] Automated Review Successful 10/21/2020 5:13 PM ENVIRONMENTAL ENGINEERING PROFESSOR [facility] [employer] [facility] EN[facility] Comment:Specimen processed s uccessfully by automated glass polisher device, ThinPrep Imaging System, [employer] ANCILLARY TESTING PRODUCTION PLANNING MANAGER HPV Ordered, Please see separate report 10/21/2020 5:13 PM ENVIRONMENTAL ENGINEERING PROFESSOR [facility] [employer] [facility] ENTRAL LABORAT[facility] Note The pap test is a screening technique, not a diagnostic procedure. It is used primarily to screen for squamous cancers and precursor lesions. Published studies have shown that it is subject to both false negative and false positive results. The pap test should not be used as the sole means to diagnose or exclude pre-malignant and malignant lesions. 10/21/2020 5:13 PM ENVIRONMENTAL ENGINEERING PROFESSOR [employer] LABORATORY-C ENTRAL LABORATORY Other (Cervical/Vagina l) 10/11/2020 2:30 PM ENVIRONMENTAL ENGINEERING PROFESSOR 10/13/2020 10:41 AM ENVIRONMENTAL ENGINEERING PROFESSOR Ashlee Bonner MD PATHOLOGY/CYTOLOGY [employer] LABORATORY-CENTRAL LABORATORY [address] [employer] [address] [place] [address], from Last 3 Months or Most Recently Relevant to Health Maintenance Care Teams Butter Maker Relationship Specialty Start Date End Date Celina Espinoza MD [address] [place] [address] PCP - General Family Practice 03/08/22 Jorje Goodwin MD [address] [place] [id number] Sports Medicine 12/12/11
== END 2024-08-20 08:50 | disposition home or self-care (01) ==
PROVIDERS: PCP Family Medicine; Visit Provider Registered Nurse
DX: N30.00 Acute cystitis without hematuria (principal); R10.11 Right upper quadrant pain
CPT/HCPCS: 87086; 87186

== ENCOUNTER 2024-08-20 11:21 | Emergency (ER) | payer OTHER, SELFPAY ==
[2024-08-20 11:33] VITALS: BP 127/95; PULSE 100; RESP 18; TEMP 37.2; O2SAT 98; BMI 32.0
--- OUTSIDE RECORDS SUMMARY | 2024-08-20 12:00 | XMS_ITS | Clinical Summary ---
Author Organization [employer] [facility] Address [place], [place] [address] Care Team Providers Care Shipfitter Apprentice Name Role Phone Jorje Goodwin MD Unavailable [phone] Celina Espinoza MD Primary Care Provider + [...] 36.7 C (98.1 F) 08/21/2017 5:34 PM MERCHANT MARINER Respiratory Rate - - Oxygen Saturation 98% 03/08/2022 4:15 PM CDT Inhaled Oxygen Concentration - - Weight 113.9 kg (251 lb) 03/08/2022 4:15 PM CDT Height 167 cm (5' 5.75) 08/21/2017 5:34 PM MERCHANT MARINER Body Mass Index 40.82 08/21/2017 5:34 PM MERCHANT MARINER Plan of Treatment Health Maintenance Due Date [...] Procedure Name Priority Date/Time Associated Diagnosis Comments GIFTED PROGRAM TEACHER THIN PREP PAP SCREEN IMAGED Routine 10/11/2020 2:30 PM MERCHANT MARINER from Last 3 Months or Most Recently Relevant to Health Maintenance Results * GIFTED PROGRAM TEACHER THIN PREP PAP SCREEN IMAGED (10/11/2020 2:30 PM MERCHANT MARINER) Case Report Gynecologic Cytology Report Case: [id number] Authorizing Provider: Ashlee Bonner MD Collected: 10/11/2020 1430 Ordering Location: [facility] Received: 10/13/2020 1041 First Screen: Tena Casillas Specimen: GIFTED PROGRAM TEACHER ThinPrep Vial Screening, Cervical/Vaginal 10/21/2020 5:13 PM MERCHANT MARINER [employer]- ENTRAL LABORATORY INTERPRETATION/ RESULT NEGATIVE FOR INTRAEPITHELIAL LESION OR MALIGNANCY (NIL) (none) 10/21/2020 5:13 PM MERCHANT MARINER [facility] [employer] [facility] ENTRAL LABORATORY IMEN ADEQUACY Satisfactory for evaluation Endocervical component present 10/21/2020 5:13 PM [facility]ER [facility] ENTRAL LABORATORY HPV REQUEST HPV and PAP 10/21/2020 5:13 PM MERCHANT MARINER [facility] ENTRAL LABORATORY Date of LMP 10/10/2020 10/21/2020 5:13 PM MERCHANT MARINER [facility] [employer] [facility] ENTRAL LABORATORY Last Pap Date 02/15/2018 10/21/2020 5:13 PM MERCHANT MARINER [facility] ENTRAL LABORATORY Last Pap Result NIL 5:13 PM MERCHANT MARINER [facility] [employer] [facility] ENTRAL LABORATORY Comment:negative HPV Additional Information 10/21/2020 5:13 PM MERCHANT MARINER [facility] [employer] [facility] ENTRAL LABORATORY Comment: Interpreted at [facility], Central Laboratory - [address], [place] [address] Automated Review Successful 10/21/2020 5:13 PM MERCHANT MARINER [facility] [employer] [facility] ENTRAL LABORATORY Comment:Specimen processed s uccessfully by automated refrigeration plant operator device, ThinPrep Imaging System, [employer] ANCILLARY TESTING GIFTED PROGRAM TEACHER HPV Ordered, Please see separate report 10/21/2020 5:13 PM MERCHANT MARINER [facility] [employer] [facility] ENTRAL LABORATORY Note The pap test is [...] pre-malignant and malignant lesions. 10/21/2020 5:13 PM MERCHANT MARINER [employer] LABORATORY-C ENTRAL LABORATORY Other (Cervical/Vagina l) 10/11/2020 2:30 PM MERCHANT MARINER 10/13/2020 10:41 AM MERCHANT MARINER Ashlee Bonner MD PATHOLOGY/CYTOLOGY [employer] LABORATORY-CENTRAL LABORATORY [address] [employer]. [address] [place] [address], from Last 3 Months or Most Recently Relevant to Health Maintenance Care Teams Shipfitter Apprentice Relationship Specialty Start Date End Date Celina Espinoza MD [address] [place] [address] PCP - General Family Practice 03/08/22 Jorje Goodwin MD [address] [place] [id number] Sports Medicine 12/12/11
--- NOTE | 2024-08-20 12:06 | CRLHL7_ITS ---
For Patients: As a result of the Century Cures Act, medical imaging exams and procedure reports are released immediately into your electronic medical record. You may view this report before your referring provider. If you have questions, please contact your health care provider. INDICATION: Right-sided abdominal pain, UTI for 24 hours.. COMPARISON: 02/01/2016 TECHNIQUE: CT of the abdomen and pelvis without intravenous contrast. Multiplanar axial, coronal, and sagittal reformats were reconstructed. Contrast: None. FINDINGS: Lung bases: Normal. Liver: Normal. No mass. Gallbladder and bile ducts: Normal gallbladder. No bile duct dilation. Pancreas: Normal. Spleen: Normal. Adrenal glands: Normal. Kidneys: Normal renal size and position. Can not assess for pyelonephritis on noncontrast exam. However there are no secondary findings like asymmetric perinephric or periureteric stranding. There are a few phleboliths in the pelvis. No right-sided urinary tract calculi. There are a few 1-2 millimeter left-sided upper collecting system calculi. No left ureteral calculi. Mild right pelviectasis without ureterectasis, similar to prior and probably physiologic. Urinary bladder: Urinary bladder is distended. There is circumferential edema consistent with cystitis. Pelvis: Presumed hysterectomy. No cyst or mass. Vessels: Normal. Bowel: No dilated or inflamed bowel. Normal appendix. Moderate stool burden. Lymph nodes: No adenopathy. Peritoneum: No ascites. Abdominal wall: No hernia. Bones: No fractures. No focal worrisome bone lesions. IMPRESSION: 1. Inflammation around the bladder consistent with cystitis. 2. No noncontrast findings of pyelonephritis or severe upper tract infection. 3. Nonobstructing left intrarenal calculi. There are a few calcifications in the pelvis that are most consistent with phleboliths. No definite ureteral calculi. No significant urinary tract dilatation. Please note that all CT scans at this facility use dose modulation, iterative reconstruction, and/or weight-based dosing when appropriate to reduce radiation dose to as low as reasonably achievable. Dictated by Vangie Shay MD @ 08/20/2024 12:43:51 PM (Electronically Signed)
[2024-08-20] MEDS: KETOROLAC 30 MG/ML inj IVP (12:08)
[2024-08-20] MEDS: ONDANSETRON 2 MG/ML inj 4 MG IVP (12:08)
[2024-08-20] MEDS: HYDROmorphone 0.5 mg/0.5 ml inj IVP (12:10)
--- NOTE | 2024-08-20 13:01 | ED.ABDPAIN ---
HPI - Abdominal Pain General Chief Complaint: Abdominal Pain Stated Complaint: abdominal pain Lower R Time Seen by Provider: 08/20/24 11:22 History of Present Illness HPI narrative: This 38-year-old female comes in with right-sided abdominal pain that began yesterday and became very severe last night. She went into clinic this morning and had urinalysis done which showed evidence of urinary tract infection but because of her right-sided abdominal pain she was sent here for further evaluation and treatment. She states that she did have some dysuria symptoms including hematuria that was lucy blood and a little piece of tissue as she describes that that occurred last night. She has not had any further hematuria. She does not report any fevers. She does not have any personal history of kidney stone but states that all the members of her immediate family have had kidney stones that have passed. Related Data Home Medications ?Medication ?Instructions ?Recorded ?Confirmed cholecalciferol (vitamin D3) 10 10 mcg PO DAILY 03/17/22 08/20/24 mcg (400 unit) capsule epinephrine 0.3 mg/0.3 mL 0.3 mg IM PRN PRN 03/17/22 08/20/24 injection, auto-injector fexofenadine 180 mg tablet 360 mg PO BID 03/17/22 08/20/24 (Ania Allergy) losartan 50 mg tablet 50 mg PO QDAY 11/08/23 08/20/24 topiramate 50 mg tablet (Topamax) 50 mg PO BID 11/08/23 08/20/24 phentermine 37.5 mg tablet 37.5 mg PO DAILY 01/29/24 08/20/24 Previous Rx's ?Medication ?Instructions ?Recorded sertraline 100 mg tablet 150 mg (1.5 x 100 mg) PO DAILY 05/02/24 #135 tabs cephalexin 500 mg capsule 500 mg PO TID 7 days #21 caps 08/20/24 ketorolac 10 mg tablet 10 mg PO Q8H 5 days #15 tabs 08/20/24 ondansetron HCl 4 mg tablet 4 mg PO Q6H #10 tabs 08/20/24 Allergies Allergy/AdvReac Type Severity Reaction Status Date / Time mupirocin Allergy Intermediate skin burn Verified 08/20/24 10:18 Review of Systems Status of ROS Reports: 10 or more systems reviewed and unremarkable except as noted in History and below Narrative Constitutional: No fevers, no weight gain or loss. Eyes: No discharge. No vision changes. HENT: No congestion, no sore throat, no ear pain. Cardiovascular: No chest pain, no palpitations. Respiratory: No shortness of breath, no wheezes, no cough. Gastrointestinal: Right-sided abdominal and flank pain with nausea and vomiting. Genitourinary: Dysuria symptoms with hematuria last night. Musculoskeletal: Normal range of motion. Skin: No rashes, no pruritis. Neurological: No dizziness, weakness, sensory change, speech change. Endo/Heme/Allergies: No bruising or bleeding. No polydipsia. Pysch: no suicidality, no anxiety, no insomnia. All other systems reviewed and are negative. [facility] Medical History COVID-19 ?U07.1 - COVID-19 (ICD-10) Mixed stress and urge urinary incontinence ?N39.46 - Mixed incontinence (ICD-10) BMI 39.0-39.9,adult ?Z68.39 - Body mass index [BMI] 39.0-39.9, adult (ICD-10) History of severe pre-eclampsia ?Z87.59 - Personal history of other complications of , childbirth and the puerperium (ICD-10) Normal vaginal delivery ?O80 - Encounter for full-term uncomplicated delivery (ICD-10) DELONTE (stress urinary incontinence, female) ?N39.3 - Stress incontinence (female) (male) (ICD-10) Hemorrhoids ?K64.9 - Unspecified hemorrhoids (ICD-10) Urticaria ?L50.9 - Urticaria, unspecified (ICD-10) Temporomandibular joint disorder ?M26.609 - Unspecified temporomandibular joint disorder, unspecified side (ICD-10) Hypertension (~10/2021) ?I10 - Essential (primary) hypertension (ICD-10) History of pre-eclampsia ?Z87.59 - Personal history of other complications of , childbirth and the puerperium (ICD-10) Generalized anxiety disorder ?F41.1 - Generalized anxiety disorder (ICD-10) Fluttering sensation of heart ?R00.2 - Palpitations (ICD-10) Endometriosis ?N80.9 - Endometriosis, unspecified (ICD-10) Chronic interstitial cystitis (~2008) ?N30.10 - Interstitial cystitis (chronic) without hematuria (ICD-10) Surgical History History of carpal tunnel surgery of right wrist (06/28/23) ?Z98.890 - Other specified postprocedural states (ICD-10) History of suburethral sling procedure (09/05/22) ?Z98.890 - Other specified postprocedural states (ICD-10) S/P laparoscopic hysterectomy (09/05/22) ?Z90.710 - Acquired absence of both cervix and uterus (ICD-10) S/P hemorrhoidectomy (09/05/22) ?Z98.890 - Other specified postprocedural states (ICD-10) ?Z87.19 - Personal history of other diseases of the digestive system (ICD-10) Hx of echocardiogram (2015) ?Z92.89 - Personal history of other medical treatment (ICD-10) History of tonsillectomy (~1997) ?Z90.89 - Acquired absence of other organs (ICD-10) History of sinus surgery (~08/2016) ?Z98.890 - Other specified postprocedural states (ICD-10) History of laparoscopy (05/2015) ?Z98.890 - Other specified postprocedural states (ICD-10) History of section (02/27/19) ?Z98.891 - History of uterine scar from previous surgery (ICD-10) Family History Mother Anxiety disorder Family history of breast cancer gene mutation in first degree relative High blood pressure Brain cancer Brother Asthma Maternal Grandmother Breast cancer, Onset Age: 40 Brain cancer Family/Other Breast cancer Type 1 diabetes mellitus Colon cancer Paternal Grandfather Coronary artery disease Heart disease Stroke Maternal Grandfather Coronary artery disease Heart disease Brother Heart murmur Father High blood pressure Paternal Grandmother Colon cancer Social History Narrative: , 3 kids, 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 Education: 4 year college degree. Tobacco use: Former smoker, quit during her 1st in 2008. E-cigarettes: No Alcohol: Yes, 6-10 servings/month. Illicit/recreational drug use: No Concern for safety at home or work: No Desires to discuss abuse: No Exercise: No Dietary restriction: No Smoking Status: Former smoker What tobacco products do you use: cigarettes Smoking quit date/years: <= 15 years ago Do you use any of these nicotine containing products: None Second hand tobacco smoke exposure: No How often do you have a drink containing alcohol: 2-4 times a month Alcohol type: beer and hard liquor How many standard drinks containing alcohol do you have on a typical day: 3 or 4 How often do you have six or more drinks on one occasion: Never AUDIT-C Alcohol total score: 3 Non-prescribed substance use: denies use Caffeine: Yes (coffee 3 cups/day) Are you using contraception or practicing any form of control: Yes ( had vasectomy) service: No Exam Narrative: Exam Narrative: Constitutional: Well-developed, well-nourished, no acute distress. HEENT: Normocephalic, atraumatic. Neck: Normal range of motion. Nontender. Supple. Heart: Regular. No murmurs. Normal rate. Intact distal pulses. Lungs: Clear to auscultation. No chest discomfort. No wheezes, rhonchi, or rales. Abdomen: Normal bowel sounds. Pain located in the right abdomen and right flank. Tenderness when percussing over the right flank region. No rebound tenderness. Genitalia: Deferred. Back: No midline tenderness. Normal range of motion. Extremities: Normal range of motion. No injury. Skin: Intact. No rash. Warm. No erythema or pallor. Neurologic: No altered sensation. No weakness. Alert and oriented. Psychiatric: No suicidality. No anxiety or depression. No insomnia. Nursing notes and vitals signs are reviewed. Const: Vital Signs, click to edit/add: Vital Signs - 24 hr 08/20/24 11:33 Temperature 99 F Pulse Rate [Pulse Oximeter] 100 Respiratory Rate 18 Blood Pressure [Ri ght Upper Arm] 127/95 H Pulse Oximetry 98 Oxygen Delivery Me thod Room Air Course Vital Signs Vital signs: Initial Vital Signs Temperature 99 F 08/20/24 11:33 Temperature Source Temporal Artery Scan 08/20/24 11:33 Pulse Rate 100 08/20/24 11:33 Respiratory Rate 18 08/20/24 11:33 Blood Pressure 127/95 H 08/20/24 11:33 Blood Pressure Mean 105 08/20/24 11:33 Pulse Oximetry 98 08/20/24 11:33 Oxygen Delivery Method Room Air 08/20/24 11:33 Vital Signs Temperature 99 F 08/20/24 11:33 Pulse Rate 100 08/20/24 11:33 Respiratory Rate 18 08/20/24 11:33 Blood Pressure 127/95 H 08/20/24 11:33 Pulse Oximetry 98 08/20/24 11:33 Oxygen Delivery Method Room Air 08/20/24 11:33 Temperature 99 F 08/20/24 11:33 Pulse Rate 100 08/20/24 11:33 Respiratory Rate 18 08/20/24 11:33 Blood Pressure 127/95 H 08/20/24 11:33 Pulse Oximetry 98 08/20/24 11:33 Oxygen Delivery Method Room Air 08/20/24 11:33 Medications Administered Medications: Discontinued Medications Generic Name Dose Route Start Last Admin Trade Name Sharq PRN Reason Stop Dose Admin Hydromorphone HCl 0.5 mg 08/20/24 11:54 08/20/24 12:10 Hydromorphone 0.5 Mg/0.5 Ml Inj IVP 08/20/24 11:55 0.5 mg ONCE ONE Administration Ketorolac Tromethamine 30 mg 08/20/24 11:54 08/20/24 12:08 Ketorolac 30 Mg/Ml Inj IVP 08/20/24 11:55 30 mg ONCE ONE Administration Ondansetron HCl 4 mg 08/20/24 11:54 08/20/24 12:08 Ondansetron 2 Mg/Ml Inj IVP 08/20/24 11:55 4 mg ONCE ONE Administration MDM - Abdominal Pain MDM Narrative Medical decision making narrative: This patient comes in with report of severe right-sided abdominal pain extending from her right flank down into her right lower quadrant. Her symptoms are suspicious for a kidney stone. She does not have any tenderness over McBurney's point. Rovsing sign is negative there is no rebound tenderness. She was complaining of pain in the right upper quadrant and states that it was worse with taking food. I did use bedside ultrasound to evaluate her gallbladder and saw the normal appearing right kidney and gallbladder. A CT scan of the abdomen and pelvis was obtained which shows small stones in each kidney but currently no obstructive uropathy or ureteral calculus. There is a phlebolith that is close to the bladder but radiologist states that this is not in the urinary tract. Patient had an IV placed and did receive IV doses of Toradol, Dilaudid, and Zofran. This brought sufficient relief to her symptoms. Her urinalysis did show 5-10 white blood cells per high-powered field so the patient did receive a g of Rocephin intravenously. She is okay to be discharged home and received prescriptions for Toradol, Keflex, and Zofran. I did advise her regarding signs and symptoms that would indicate a need for return re-evaluation. Imaging Data CT scan - abdomen: Radiologist's impression: FINDINGS: Lung bases: Normal. Liver: Normal. No mass. Gallbladder and bile ducts: Normal gallbladder. No bile duct dilation. Pancreas: Normal. Spleen: Normal. Adrenal glands: Normal. Kidneys: Normal renal size and position. Can not assess for pyelonephritis on noncontrast exam. However there are no secondary findings like asymmetric perinephric or periureteric stranding. There are a few phleboliths in the pelvis. No right-sided urinary tract calculi. There are a few 1-2 millimeter left-sided upper collecting system calculi. No left ureteral calculi. Mild right pelviectasis without ureterectasis, similar to prior and probably physiologic. Urinary bladder: Urinary bladder is distended. There is circumferential edema consistent with cystitis. Pelvis: Presumed hysterectomy. No cyst or mass. Vessels: Normal. Bowel: No dilated or inflamed bowel. Normal appendix. Moderate stool burden. Lymph nodes: No adenopathy. Peritoneum: No ascites. Abdominal wall: No hernia. Bones: No fractures. No focal worrisome bone lesions. IMPRESSION: 1. Inflammation around the bladder consistent with cystitis. 2. No noncontrast findings of pyelonephritis or severe upper tract infection. 3. Nonobstructing left intrarenal calculi. There are a few calcifications in the pelvis that are most consistent with phleboliths. No definite ureteral calculi. No significant urinary tract dilatation. Discharge Plan Discharge Clinical Impression: Urinary tract infection Patient Disposition: Home w/ Parent or Adult Condition: Improved Additional Instructions: Take medications as prescribed and needed. Follow up with MD as needed or return if symptoms are persistent or worsening. Prescriptions: New ondansetron HCl 4 mg tablet 4 mg PO Q6H Qty: 10 0RF ketorolac 10 mg tablet 10 mg PO Q8H 5 Days Qty: 15 0RF cephalexin 500 mg capsule 500 mg PO TID 7 Days Qty: 21 0RF No Action epinephrine 0.3 mg/0.3 mL auto-injector 0.3 mg IM PRN PRN cholecalciferol (vitamin D3) 10 mcg (400 unit) capsule 10 mcg PO DAILY fexofenadine [Ania Allergy] 180 mg tablet 360 mg PO BID phentermine 37.5 mg tablet 37.5 mg PO DAILY losartan 50 mg tablet 50 mg PO QDAY topiramate [Topamax] 50 mg tablet 50 mg PO BID sertraline 100 mg tablet 150 mg PO DAILY Qty: 135 1RF Follow Up/Referrals: Celina Espinoza MD [Primary Care Provider] - Stand Alone Forms: [facility] Info Instructions
[2024-08-20] MEDS: cefTRIAXone 1 GM in 0.9 % SODIUM CHLORIDE Mini-bag 100 ML IVPB (13:40)
[2024-08-20 14:18] VITALS: BP 112/72; PULSE 71; RESP 16; O2SAT 99
== END 2024-08-20 14:27 | disposition home or self-care (01) ==
PROVIDERS: Emergency Provider Emergency Medicine Emergency Medical Services; PCP Family Medicine
DX: N39.0 Urinary tract infection, site not specified (principal)
CPT/HCPCS: 74176; 76705; 99284; 99285; J0696; J1171; J1885; J2405

== ENCOUNTER 2024-09-29 10:31 | Outpatient (CLI) | payer OTHER, SELFPAY ==
--- NOTE | 2024-09-29 10:45 | CRLHL7_ITS ---
For Patients: As a result of the Century Cures Act, medical imaging exams and procedure reports are released immediately into your electronic medical record. You may view this report before your referring provider. If you have questions, please contact your health care provider. DIGITAL BILATERAL DIAGNOSIC MAMMOGRAM WITH COMPUTER-AIDED DETECTION AND TOMOSYNTHESIS CLINICAL HISTORY: LEFT breast skin changes. Strong family history. COMPARISON: 02/11/24, 11/04/21, 06/21/20. TECHNIQUE: Digital BILATERAL mammogram in 4 projections with computer-aided detection. Tomosynthesis was used in this interpretation. Real-time ultrasound imaging of LEFT breast with imaging documentation. BREAST COMPOSITION: There are scattered areas of fibroglandular density. FINDINGS: 3D CC/MLO BILATERAL mammogram images submitted. No suspicious mass or architectural distortion. No suspicious calcifications or adenopathy. Targeted LEFT breast ultrasound performed at 9 o`clock, 6 cm from the nipple, in the area of concern. Additional ultrasound performed at 3 o`clock, 7 cm from the nipple and 5 o`clock, 9 cm from the nipple. In these locations, normal breast tissue is present. No fibrocystic change or mass. No suspicious findings beneath the skin. IMPRESSION: No suspicious findings. RECOMMENDATIONS: Clinical follow-up. Surgical consultation should be considered for potential skin punch biopsy. High risk assessment also recommended for potential screening breast MRI. A lay language report of this examination will be provided to the patient. BI-RADS Category 2. Benign. Dictated by Jake Davis MD @ 09/29/2024 11:42:33 AM ALEXYS/nayana DW/Dictated by: Jake Davis MD @ 09/29/2024 11:42:00 AM (Electronically Signed)
--- NOTE | 2024-09-29 11:15 | CRLHL7_ITS ---
For Patients: As a result of the Century Cures Act, medical imaging exams and procedure reports are released immediately into your electronic medical record. You may view this report before your referring provider. If you have questions, please contact your health care provider. Please see digital diagnostic BILATERAL mammogram for combined report. DM:[email or web address] 09/29/2024 DW/Dictated by: Jake Davis MD @ 09/29/2024 11:49:00 AM (Electronically Signed)
== END 2024-09-29 10:32 | disposition home or self-care (01) ==
LOC: MAMMO 10:32
PROVIDERS: PCP Family Medicine; Visit Provider Obstetrics & Gynecology
DX: N64.4 Mastodynia (principal); L98.8 Other specified disorders of the skin and subcutaneous tissue; Z80.3 Family history of malignant neoplasm of breast
CPT/HCPCS: 76642; 77066; G0279

== ENCOUNTER 2024-12-30 13:27 | Outpatient (CLI) | payer OTHER, SELFPAY | END 2024-12-30 13:28 | disposition home or self-care (01) | LOC: NFLDREF 01-02 16:56 | PROVIDERS: PCP Family Medicine; Referring Provider Family Medicine; Visit Provider Obstetrics & Gynecology | DX: N39.0 Urinary tract infection, site not specified (principal); B96.20 Unspecified Escherichia coli [E. coli] as the cause of diseases classified elsewhere | CPT/HCPCS: 87086 ==

== ENCOUNTER 2025-01-01 12:17 | Inpatient (IN) | payer OTHER, SELFPAY ==
[2025-01-01] VITALS (9 sets, daily range): BP systolic 88–120; BP diastolic 49–86; PULSE 70–111; RESP 16–18; TEMP 37.3–38.8; O2SAT 98–99; BMI 30.9; BMI 31.2
--- OUTSIDE RECORDS SUMMARY | 2025-01-01 12:20 | XMS_ITS | Encounter Summary ---
Author Organization [facility] Address [address] [place] [id number] Care Team Providers Care Mail Processor Name Role Phone Elsewhere, Pcp Primary Care Provider Unavailabl e Reason for Visit * Outpatient (Routine) - Closed Specialty Diagnoses / Procedures Referred By Cecelia garcia Referred To Contact Clinical Genomics Diagnoses Cancer Breast Family History Celeste Casillas M.D. [address] [place] [phone] Phone: tel: fax: [facility] Referral ID Status Reason Start Date Expiration Date Visits Re quested Visits Authorized [id number] Closed 11/17/2024 05/19/2026 1 1 Encounter Details Date Type Department Care Team ([facility] st Contact Info) Description 11/18/2024 10:30 AM [facility] Telemedicine Department of Medical Genetics in [place], [place] [address] [place] [phone] Celeste Casillas M.D. [address] [place] [address] [phone] Vivian Estes M.S., [facility] [address] [place] [phone] Cancer Colon Family History (Primary Dx); Cancer Breast Family History; Cancer Brain Family History; Cancer Prostate Family History Social History Tobacco Use Types Packs/Day Years Used Date Smoking Tobacco: Every Day Passive Smoke Exposure: Never Smokeless Tobacco: Never Alcohol Use Standard Drinks/Week Comments Yes 3 (1 standard drink = 0.6 oz pur e alcohol) [facility] Utilities Answer Date Recorded In the past 12 months has th e electric, gas, oil, or water company threatened to shut off services in your home? No 11/16/2024 Exercise Vital Sign Answer Date Recorde d On average, how many days pe r week do you engage in moderate to strenuous exercise (like a brisk walk)? 3 days 11/16/2024 On average, how many minutes do you engage in exercise at this level? 20 min 11/16/2024 Hunger Vital Sign Answer Date Recorded Within the past 12 months, y ou worried that your food would run out before you got the money to buy more. Never true 11/17/19 Within the past 12 months, t he food you bought just didn't last and you didn't have money to get more. Never true 11/16/2024 PRAPARE - Transportation Answer Date Re corded In the past 12 months, has l ack of transportation kept you from medical appointments or from getting medications? No 10/2024 In the past 12 months, has l ack of transportation kept you from meetings, work, or from getting things needed for daily living? No 11/16/2024 Nutrition Answer Date Recorded On average, how many serving s of fruits and vegetables do you eat per day (serving size is equal to 1 cup or approximately the size of a tennis ball)? 3-5 11/16/2024 Dental Answer Date Recorded Dental: Regular Dentist Yes 11/17/19 Employment Answer Date Recorded Employment status Employed and actively working without restrictions 11/16/2024 Housing Stability Answer Date Recorded What is your living situation today? I have a [facility] place to live 11/16/2024 Comments No Sex and Gender Information Value Date Recorded Sex Assigned at Female 11/16/2024 10:08 PM FALAFEL CART COOK Legal Sex Female 5:26 AM FALAFEL CART COOK Gender Identity Female 11/16/2024 10:08 PM FALAFEL CART COOK Sexual Orientation Straight 11/16/2024 10 :08 PM FALAFEL CART COOK documented as of this encounter Consult Notes * Vivian Estes M.S., [facility] - 11/18/2024 10:30 AM CST Images from the original note were not included. REFERRING PROVIDER Celeste Isaac, * CHIEF COMPLAINT Family history of breast cancer HISTORY OF PRESENT ILLNESS Vangie Vences is a 39 y.o. female referred by Celeste Isaac, * due to their family history of breast cancer. The patient has no personal history of cancer. The patient is undergoing annual mammograms. The patient is , menarche was at age 12, first parity was at 22 years old, and the patient is perimenopausal. The patient reports no history of HRT. Vangie had hysterectomy without oophorectomy at age 36. The family history is significant for brain tumor, breast, prostate, colon, and other cancers. Please see family history section below for additional details. The patient attended today's consultation alone. Consult conducted via real-time audio/video technology by Vivian Estes M.S., [facility] in the [facility] to the patient at work. FAMILY HISTORY A detailed family history was obtained from the patient and a pedigree was constructed. The pedigree will be saved as a scanned document and available for viewing under the Media tab of [employer]. Our risk assessment is based upon medical and family history information as provided by the patient, and may change in the future should new information be obtained. Pedigree 11/18/2024 taken by Vivian Estes MS, [facility] Relevant History: Mother had a brain tumor at age 52. Has had multiple colon polyps. No other history of cancer but underwent risk-reducing mastectomies at age 45. Also underwent hysterectomy around age 35 and bilateral oophorectomy at age 57. Underwent genetic testing of likely only BRCA1 and BRCA2 in [id number]. Did additional genetic testing for brain tumors and Parkinson's disease in 2020 Maternal aunt with colon polyps, positive genetic test for gene related to colorectal cancer (no further details available) Maternal grandmother with triple negative breast cancer at age 45, recurrent and metastatic at age 47 Two of maternal grandmother's sisters with triple negative breast cancer at ages 48 and 52. One hadnegative genetic testing Two of maternal grandmother's brothers with prostate cancer, at ages 56 and 80 Maternal grandmother's father with metastatic prostate cancer Three maternal maternal first cousins once-removed with breast cancer; four maternal maternal firstcousins once-removed have undergone genetic testing, and one may have tested positive for a gene mutation, but no further details are available Paternal uncle with non-Hodgkin lymphoma Paternal grandmother with colon polyps Paternal grandmother's mother with colon cancer in her 30s The patient's maternal ancestry is Citizen [place]; the patient's paternal ancestry is [place]. There is no reported consanguinity. IMPRESSION/REPORT/PLAN PATIENT EDUCATION Note: the terms male/man and female/woman refer to sex assigned at . We discussed that cancer is a relatively common diagnosis in the general population, and the majority of these cancers are either sporadic or familial. Hereditary cancers are caused by mutations within a single cancer susceptibility gene. Families with hereditary cancers tend to have the following features: specific types of cancer in multiple close relatives and in several consecutive generations, early age at diagnosis (under 50), multiple primary or bilateral tumors, and a lack of environmental or other known risk factors. About 12% of women in the [place] will develop breast cancer during their lifetime. It is believed that approximately 5%-10% of breast cancers are associated with a strong underlying hereditary susceptibility, such as mutations in the BRCA1 gene or the BRCA2 gene. Additionally, mutations in other genes, including PALB2, JAMES, and CHEK2, among others, have been found to cause a hereditary susceptibility to breast cancer. Prostate cancer is a relatively common diagnosis among men in the general population. In fact, approximately 1 out of 7 men (14%) in the [place] are diagnosed with prostate cancer in their lifetime. Most prostate cancers are believed to occur sporadically. Only 5-10% of all prostate cancer isexpected to be hereditary (Sal et al., 2016). Families with hereditary prostate cancer tend to have high-grade prostate cancer (metastatic OR Ihsaan score over 7), rare cancers (like male breast cancer or ovarian cancer), cancer diagnosed at a young age (<50 years), and/or multiple cancers in one individual. Mutations in some genes, like HOXB13 and BRCA2, cause high risk for prostate cancer (up to 60%), while mutations in other genes, like BRCA1 and the James Syndrome genes, are believed to cause moderate risk for prostate cancer (16-30%). Mutations in other genes, such as CHEK2, JAMES, and PALB2, among others, have emerging evidence for increased risks for prostate cancer; however the exact cancer risks are not known at this point in time. GI polyps are highly prevalent in the general population, occurring in 30-50% of adults. Some polyps have potential to progress to malignancy. GI cancers are also a relatively common diagnosis in thegeneral population: about 4-5% of people in the [place] will develop colorectal cancer during their lifetime. An individual's risk of developing GI polyps and colorectal cancer may be altered by multiple risk factors, including aging, obesity, a diet high in red and processed meat, smoking, inflammatory bowel disease, abdominal radiation, a family history of colon polyps or colorectal cancer, and single-gene hereditary susceptibilities. It is believed that approximately 5%-10% (NCCN, v.2.2021) of c olorectal cancers are associated with a strong underlying hereditary susceptibility, such APC and MUTYH. Additionally, mutations in other genes, including the James syndrome genes, are associated with a hereditary susceptibility to colorectal cancer. Hereditary hematologic malignancies, such as lymphoma, are a relatively new area of research and much remains to be discovered about the contribution of germline genetics to these types of cancers. Currently, there is not a strong inherited association with brain tumors and known genes. In other words, the evidence suggests most brain tumors are sporadic and due to a combination of our genetics, environment, lifestyle, exposures, and age amongst other potential risk factors. Certain types of brain cancers (I.e., glioblastoma, astrocytoma) can be seen in individuals with James syndrome and Li Fraumeni syndrome, among others. We discussed testing panels that cover many genes known or thought to be associated with hereditaryor familial cancer. Mutations in some of the genes account for hereditary cancer syndromes that include significant risks for cancer, while other genes are currently thought of as modifier genes that potentially increase the risk for cancer. There are several limitations of these tests. The exact cancer risks for some of the genes that are included on these panels are not known at this point in time. Therefore, it may be difficult to provide appropriate screening/medical management recommendations. Additionally, there is a significant chance that a variant of uncertain significance may be identified. We discussed different hereditary cancer panel test options. Laws governing genetic discrimination were discussed. Risks, benefits, and limitations of genetic testing were discussed. Implications of possible test results, including positive, negative, and variant of uncertain significance, were discussed. RISK ASSESSMENT The patient's family history is suggestive of a genetic predisposition to cancer. Vangie does meet current National Comprehensive Cancer Network (NCCN) Testing Criteria for breast and prostate cancer susceptibility genes. Genetic testing is most informative when it is first performed on a family member with a personal history of cancer. Testing is available to Vangie but with limitations. If the patient elects to pursue genetic testing today and receives a negative test result, this does not rule out the possibility of a hereditary cancer syndrome in the patient and/or their family. Vangie would remain at an elevated empiric risk for lymphoma, breast cancer, and colon polyps based on their family history andshould continue to be managed accordingly. The patient's mother, maternal grandmother, maternal great aunts and uncles, distant maternal cousins, maternal great grandfather, paternal uncle, paternal g randmother, and paternal great grandmother would be the most informative individual to pursue genetic testing, based on their diagnosis of cancer. Many of these individuals are currently unavailable for testing as they are . The GASPER (also known as Tyrer-Emekack) model (Version 8.0) was used to calculate the patient's risk of breast cancer. According to this model, the patient's estimated lifetime risk for developing breast cancer (to age 85) is 11.7% compared to a risk of 11% for a woman of the same age from the general population. As the patient's lifetime risk of breast cancer is less than 20%, the patient does notqualify to receive annual breast MRI's according to NCCN in addition to annual mammograms as a screening tool for breast cancer. The patient may wish to discuss this in further detail with their careprovider. This was calculated as 12.6% yesterday in the breast clinic; breast MBIs were recommended due to breast density. PLAN Vangie elected to pursue the CancerNext-Expanded panel through [facility]. Vangie will complete a blood draw for cryopreservation in [place] in the next few days. Testing will be completed from the cryopreservation sample. The laboratory will bill the patient's insurance direct ly and will contact the patient if the out of pocket cost is greater than $100. Results will becomeavailable approximately 2-3 weeks from the release of testing. We will contact the patient with thetest results when they become available. Screening and management recommendations will be made for the patient and family members at the time of results disclosure. If results are negative or a variant of uncertain significance is identified, the patient will be contacted with results via the patient portal. If results are positive or complex, the patient will be offered an in-person or video return visit. If genetic test results are negative or a variant of uncertain significance is identified, the following screening recommendations would apply for Vangie and relatives. PERSONAL AND FAMILY SCREENING RECOMMENDATIONS PERSONAL SCREENING It is important for the patient to continue to follow the breast cancer screening recommendations provided by their physicians. This may include monthly breast self-examination, clinical breast examination, mammograms, or breast MRI, to be performed as directed by their physician. FAMILY SCREENING Women in this family with a first- or second-degree relative diagnosed with breast cancer remain atincreased risk for breast cancer given their family history. These women would be advised to undergo breast cancer screening beginning approximately 10 years younger than the earliest age of breast cancer diagnosis in the family, or by age 40, whichever comes first. For this family, women should begin breast cancer screening at age 35. At a minimum, breast cancer screening should include monthly self-breast exam, annual or semi-annual clinical breast exam, annual mammogram, and possibly annual breast MRI. These screening options should be discussed with their care providers. Individuals with a family history of colorectal cancer or polyposis are expected to have an elevated empiric risk to develop colon polyps and colorectal cancer. We discussed the medical management guidelines for individuals who have a family history of colorectal cancer or polyposis in first or second degree relatives. According to National Comprehensive Cancer Network guidelines (v.3.2023): Individuals who have a first degree relative with colorectal cancer are advised to begin colonoscopies at age 40 or approximately ten years younger than the earliest age of colon cancer diagnosis (whichever is earliest). Repeat colonoscopy should be every 5 years or earlier based on colonoscopy findings. Individuals with second or third degree relatives with colorectal cancer may consider colonoscopies starting at 45, repeating every 10 years or as recommended. Individuals who have a first degree relative with advanced adenoma(s) (ie. High- grade dysplasia, 1+cm, villous or tubulovillous histology) would be advised to begin colonoscopies at age 40 or at theage of adenoma diagnosis in the affected relative (whichever is earliest). Colonoscopy should be repeated every 5-10 years or earlier based on colonoscopy findings. Individuals who have a first degree relative with >20-<100 adenomatous colon polyps should undergo colonoscopy beginning in late teens, then every 2 years. Initial initiation age and frequency of colonoscopy may be modified on clinical judgement of the provider. If multiple surveillance examswithout adenomas on follow-up, may lengthen interval further based on clinical judgment. If adenomas found, management should be based on attenuated FAP treatment and surveillance: personal history and adenoma and polyp burden. Individuals with a family history of a hematologic malignancy are advised to share this informationwith their providers and follow any screening recommendations they make. This may include having a baseline bone marrow evaluation, a CBC with differential, and a clinical exam with a director child abuse therapy. Individuals in this family with a first- or second-degree relative diagnosed with a brain tumor mayremain at increased risk for a brain tumor given their family history. These individuals would be advised to share their family history with their care providers and discuss their screening options with their care providers. These screening recommendations are based on national guidelines. Final screening recommendations should be deferred to the discretion of the managing physician. Other screening recommendations, suchas those made by the [place] [employer], do remain appropriate. It was a pleasure to meet Vangie. Vangie is certainly welcome to contact us with any additionalquestions. PATIENT EDUCATION: All of the above was discussed in detail with the patient who verbalized understanding. The patient's questions were answered. Total time: 44 minutes FEL CART COOK documented in this encounter Plan of Treatment Scheduled Orders Name Type Priority Associated Diagnoses Orde r Schedule [id number] [facility] Custom Panel - Miscellaneous Test Lab Add-On Cancer Breast Family History Cancer Colon Family History Cancer Brain Family History Cancer Prostate Family History Expected: 11/18/2024 (Approximate), Expires: 11/18/2025 documented as of this encounter Results * Cryopreservation for Molecular Genetic Studies (11/26/2024 3:07 PM CDT) Comment A DNA specimen has been stored for future genomic studies. This specimen has been stored at the request of the ordering physician for anticipated future testing. In some instances, a portion of the specimen may remain available (by consent) for use by the individual and/or family. This is not a DNA banking service. If senior living, guaranteed specimen storage is required, DNA banking should be considered. The Genomic Extraction Core extracted DNA. DNA Volume (microliters): 500+ Please review the following table to determine the possible number of tests that can be added for send out testing. DNA (ul) Possible Send Outs (~100 ul) <100 Recommend Redraw 100 1 250 2 500 5 12/01/2024 1:17 PM CDT DTL Specimen WB Whole Blood 12/01/2024 1:17 PM CDT DTL Released By SABRINA MCADAMS 12/01/2024 1:17 PM CDT DTL Blood (Blood, Venous) 11/26/2024 3:07 PM CDT 11/27/2024 7:20 AM CDT Jovan Kirk APRN.N.P., D.N.P., M.S. LAB GENETIC TESTING Final Result [facility] [address] [place] [address], [facility] DTL [address] [place] [address] documented in this encounter Visit Diagnoses Diagnosis Cancer Colon Family History- Primary Cancer Breast Family History Cancer Brain Family History Cancer Prostate Family History documented in this encounter Care Teams Mail Processor Relationship Specialty Start Date End Date Elsewhere, Pcp PCP - General Family Medicine 08/01/20 documented as of this encounter
--- OUTSIDE RECORDS SUMMARY | 2025-01-01 12:20 | XMS_ITS | Encounter Summary ---
Author Organization [facility] Address [address] [place] [id number] Care Team Providers Care Knurling Machine Operator Name Role Phone Elsewhere, Pcp Primary Care Provider Unavailabl e Reason for Visit * Reason Onset Date Comments Ambry:KR 11/18/2024 Encounter Details Date Type Department Care Team (Late st Contact Info) Description 11/18/2024 Clinical Communication Department of Medical Genetics in [place], [place] [address] [place] [phone] Vivian Estes M.S., [facility] [address] [place] [phone] Ambry:KR Social History Tobacco Use Types Packs/Day Years Used Date Smoking Tobacco: Every Day Passive Smoke Exposure: Never Smokeless Tobacco: Never Alcohol Use Standard Drinks/Week Comments Yes 3 (1 standard drink = 0.6 oz pur e alcohol) [facility] Utilities Answer Date Recorded In the past 12 months has [employer], gas, oil, or water [employer] threatened to shut off services in your [...] your living situation today? I have a [facility] place to live 11/16/2024 Comments No Sex and Gender Information Value Date Recorded Sex Assigned at Female 11/16/2024 10:08 PM GAS STOVE SERVICER HELPER Legal Sex Female 5:26 AM GAS STOVE SERVICER HELPER Gender Identity Female 11/16/2024 10:08 PM GAS STOVE SERVICER HELPER Sexual Orientation Straight 11/16/2024 10 :08 PM GAS STOVE SERVICER HELPER documented as of this encounter Miscellaneous Notes * Telephone Encounter - Malathi Khoury - 11/18/2024 3:04 PM CST Date: 11/18/24 Lab: [facility] Test: non-RNA Sample: Testing off of cryo Provider: Vivian Estes [facility] Insurance: Commercial Note: Cryo to be collected at 11/25 4:10 pm blood draw at [facility]. POM sent to patient to confirm these details. After BD, we will request cryo pull for testing. STOVE SERVICER HELPER documented in this encounter Plan of Treatment Not on file documented as of this encounter Visit Diagnoses Not on filedocumented in this encounter Care Teams Knurling Machine Operator Relationship Specialty Start Date End Date Elsewhere, Pcp PCP - General Family Medicine 08/01/20 documented as of this encounter
--- OUTSIDE RECORDS SUMMARY | 2025-01-01 12:20 | XMS_ITS | Clinical Summary ---
Author Organization [facility] Address [address] [facility] [address] , [address] [place] [address] Phone Care Team Providers Care Aircraft Machinist Name Role [facility] Unavailable Unava ilable Conditions or Problems Problem Name Problem Code Onset Date Status Entry Date Provider Comment Standard Description Annotate Hand numbness 300133542 (SNOMED CT) Active Dmitry Warner MD Numbness of hand Elbow pain, unspecified 29942726 (SNOMED CT) Active Dmitry Warner MD Pain of elbow region Median neuropathy, right 263153947 (SNOMED CT) Active Dmitry Warner MD Median neuropathy Medications No information available. Medications Administered No information available. Allergies, Adverse Reactions, Alerts No information available. Results Date Name Value Unit Range Flag Description Internal Other: Authorizatio n - OBS [email or web address] Yes Authoriza tion: Release of Information - Authorize [facility] - Payment and Healthcare Operations ROIAUTHOTHER Yes Authoriz ation: Release of Information - Authorize Others/Insurance - Payment and Healthcare Operations HIECONSENT Yes Consent To Release information to the Health Information Exchange (HIE) [email or web address] Yes Authorizat ion: Authorization for [facility] to leave messages, voicemail, send text messages, send emails AUTHRELHCARE Yes Authoriz ation: Release/Retrieval of Information to/from Healthcare Facilities, Pharmacy Benefit Payers and Providers AUTHPRIVPRAC Yes Authoriz ation: Notice of privacy practices AUTHBENEFIT Yes Authoriza tion: Assignment of Benefits and Payment Agreement Internal Other: Verbal Autho rization/Emergency Contact - OBS VERBAL_EMER DONE Verbal au thorization and emergency contact Plan of Care No information available. Procedures Code Procedure Name Date Entry Date CPT-53790 Nerve Conduction 13 or more studies 05/24 CPT-74330 EMG with NCS (5+ muscles) - 1 limb 05/24 Vital Signs No information available. Immunizations No information available. Advance Directives No information available.
--- OUTSIDE RECORDS SUMMARY | 2025-01-01 12:20 | XMS_ITS | Encounter Summary ---
Author Organization [facility] Address [address] [place] [address] Care Team Providers Care Antique Furniture Repairer Name Role Phone Elsewhere, Pcp Primary Care Provider Unavailabl e Encounter Details Date Type Department Care Team (Late st Contact Info) Description 11/21/2024 Results Follow-Up Breast Diagnostic Clinic in [place], [place] [address] [place] [address] Celeste Casillas M.D. [address] [place] [phone] Pathology Review of Outside Material Social History Tobacco Use Types Packs/Day Years Used Date Smoking Tobacco: Every Day Passive Smoke Exposure: Never Smokeless Tobacco: Never Alcohol Use Standard Drinks/Week Comments Yes 3 (1 standard drink = 0.6 oz pur e alcohol) [facility] Utilities Answer Date Recorded In the past 12 months has [employer], gas, oil, or water [employer] threatened to shut off services in your [...] money to buy more. Never true 11/17/19 25 Within the past 12 months, t he [...] your living situation today? I have a [facility] place to live 11/16/2024 Comments No Sex and Gender Information Value Date Recorded Sex Assigned at Female 11/16/2024 10:08 PM MANAGER ENGINE Legal Sex Female 5:26 AM MANAGER ENGINE Gender Identity Female 11/16/2024 10:08 PM MANAGER ENGINE Sexual Orientation Straight 11/16/2024 10 :08 PM MANAGER ENGINE documented as of this encounter Plan of Treatment Not on file documented as of this encounter Visit Diagnoses Not on filedocumented in this encounter Care Teams Antique Furniture Repairer Relationship Specialty Start Date End Date Elsewhere, Pcp PCP - General Family Medicine 08/01/20 documented as of this encounter
--- OUTSIDE RECORDS SUMMARY | 2025-01-01 12:20 | XMS_ITS | Encounter Summary ---
Author Organization [facility] Address [address] [place] [address] Care Team Providers Care Ramp Service Agent Name Role Phone Elsewhere, Pcp Primary Care Provider Unavailabl e Reason for Visit * Reason Comments Genetic Testing Results: Negative Encounter Details Date Type Department Care Team ([facility] st Contact Info) Description 12/16/2024 Documentation Department of Medical Genetics in [place], [place] [address] [place] [address] Shelley De Genetic Testing Results: Negative Social History Tobacco Use Types Packs/Day Years Used Date Smoking Tobacco: Every Day Passive Smoke Exposure: Never Smokeless Tobacco: Never Alcohol Use Standard Drinks/Week Comments Yes 3 (1 standard drink = 0.6 oz pur e alcohol) [facility] Utilities Answer Date Recorded In the past 12 months has [employer], [employer], oil, or water [email or web address] threatened to shut off services in your [...] your living situation today? I have a [facility] place to live 11/16/2024 Comments No Sex and Gender Information Value Date Recorded Sex Assigned at Female 11/16/2024 10:08 PM STOCK BROKER SUPERVISOR Legal Sex Female 5:26 AM STOCK BROKER SUPERVISOR Gender Identity Female 11/16/2024 10:08 PM STOCK BROKER SUPERVISOR Sexual Orientation Straight 11/16/2024 10 :08 PM STOCK BROKER SUPERVISOR documented as of this encounter Progress Notes * Shelley De - 12/16/2024 9:05 AM CDT Images from the original note were not included. PURPOSE Germline genetic testing results. No pathogenic variants identified. See below for genetic test result interpretation and screening recommendations. HISTORY OF PRESENT ILLNESS Vangie Vences was seen in the Department of Clinical Genomics on 11/18/2024due to a family history of cancer. [facility] These results were communicated to the patient via the patient online services portal by our genetic counseling operations assistant. RESULTS Germline genetic testing included sequence analysis and deletion/duplication analysis of 76 genes associated with hereditary cancer. For a full list of genes included in the analysis, please refer tothe genetic test report scanned into the patient's chart (document viewer tab). The patient's germline genetic testing was negative/normal, meaning no pathogenic variants (mutations) or variants of uncertain significance were detected by this testing. The fact that no pathogenic variants were detected in the genes for which Vangie was tested is reassuring. However, the fact that a pathogenic variant was not identified does not eliminate the possibility that the patient and/or their family members have a hereditary susceptibility to cancer. Genetic testing has less than 100% sensitivity, meaning there is a small possibility that a pathogenic variant exists in one of the genes analyzed which cannot be identified by current testing methodology. It is also possible that pathogenic variants in cancer susceptibility genes which have not yet been discovered may be contributing to the personal and/or family history of cancer. It is also possible that there is a hereditary susceptibility to cancer that has affected the patient's family members, that Vangie simply did not inherit. Affected family members (e.g. those with a cancer diagnosisthemselves) may wish to pursue their own genetic testing to further clarify the family's risk. A negative genetic testing result does not mean that someone will not develop cancer in their lifetime. PERSONAL AND FAMILY SCREENING RECOMMENDATIONS Given that a hereditary susceptibility to cancer has not been identified by genetic testing, it is generally recommended to screen patients and their family members based on their personal and/or family histories of cancer. It is important for Vangie to continue to follow the screening and management recommendations as provided by the care team based on the family history of cancer. Women in this family with a first- [...] differential, and a clinical exam with a card painter. Individuals in this family with a first- [...] screening recommendations, suchas those made by the [place] [employer], do remain appropriate. FOLLOW UP/RECOMMENDATIONS It is recommended that Vangie contact our clinic if there are changes to the personal or family history of cancer, as this information may change our genetic testing recommendations. Additionally, the patient is welcome to contact our clinic periodically, as our genetic testing options will likely improve over time. Vangie is welcome to contact our clinic with any questions. Cosigned by Vivian Estes M.S., MIKEY at 12/16/2024 9:27 AM CDT documented in this encounter Plan of Treatment Not on file documented as of this encounter Visit Diagnoses Not on filedocumented in this encounter Care Teams Ramp Service Agent Relationship Specialty Start Date End Date Elsewhere, Pcp PCP - General Family Medicine 08/01/20 documented as of this encounter
--- OUTSIDE RECORDS SUMMARY | 2025-01-01 12:20 | XMS_ITS | Encounter Summary ---
Author Organization [facility] Address [address] [place] [address] Care Team Providers Care Hand Twister Name Role Phone Elsewhere, Pcp Primary Care Provider Unavailabl e Encounter Details Date Type Department Care Team (Late st Contact Info) Description 11/26/2024 2:58 PM CDT - 11/26/2024 11:59 PM CDT Hospital Encounter Department of Laboratory Medicine in [address] [phone] Nanci Pena APRN, C.N.P., D.N.P., M.S. [address] [place] [phone] Cancer Breast Family History; Cancer Colon Family History; Cancer Brain Family History; Cancer Prostate Family History Discharge Disposition: Home or Self Care Social History Tobacco Use Types Packs/Day Years Used Date Smoking Tobacco: Every Day Passive Smoke Exposure: Never Smokeless Tobacco: Never Alcohol Use Standard Drinks/Week Comments Yes 3 (1 standard drink = 0.6 oz pur e alcohol) [facility] Utilities Answer Date Recorded In the past 12 months has e [employer], gas, oil, or water company threatened to [...] your living situation today? I have a [facility] place to live 11/16/2024 Comments No Sex and Gender Information Value Date Recorded Sex Assigned at Female 11/16/2024 10:08 PM ATTENDANCE OFFICER Legal Sex Female 5:26 AM ATTENDANCE OFFICER Gender Identity Female 11/16/2024 10:08 PM ATTENDANCE OFFICER Sexual Orientation Straight 11/16/2024 10 :08 PM ATTENDANCE OFFICER documented as of this encounter Medications at Time of Discharge cetirizine (ZyrTEC) 10 mg tablet Take 10 mg by mouth 2 (two) times a day. cholecalciferol, vitamin D3, 25 mcg (1,000 Unit) tablet Take 1 tablet by mouth daily. 04/20/2014 phentermine HCl (PHENTERMINE ORAL) Take 1.5 tablets by mouth daily. Pt unsure of dose sertraline (Zoloft) 50 mg tablet Take 2 tablets by mouth daily. 10/21/2016 documented as of this encounter Plan of Treatment Not on file documented as of this encounter Procedures Procedure Name Priority Date/Time Associated Diagnosis Comments CRYOPRESERVATION FOR MOLEC STUDIES Routine 11/26/2024 3:07 PM CDT Cancer Breast Family History Cancer Colon Family History Cancer Brain Family History Cancer Prostate Family History documented in this encounter Results * Cryopreservation for Molecular [...] is not a DNA banking service. If usp, guaranteed specimen storage is required, DNA banking [...] D.N.P., M.S. LAB GENETIC TESTING Final Result [facility] [address] [place] [address], [facility] [address] [place] [address] documented in this encounter Visit Diagnoses Diagnosis Cancer Breast Family History Cancer Colon Family History Cancer Brain Family History Cancer Prostate Family History documented in this encounter Care Teams Hand Twister Relationship Specialty Start Date End Date Elsewhere, Pcp PCP - General Family Medicine 08/01/20 documented as of this encounter
--- OUTSIDE RECORDS SUMMARY | 2025-01-01 12:20 | XMS_ITS | Encounter Summary ---
Author Organization [facility] Address [address] [place] [address] Care Team Providers Care Porter Luggage Name Role Phone Elsewhere, Pcp Primary Care Provider Unavailabl e Encounter Details Date Type Department Care Team (Late st Contact Info) Description 11/27/2024 8:15 AM CDT Lab RST [facility] [address] [place] [phone] Nanci Pena APRN, C.N.P., D.N.P., M.S. [address] [place] [phone] Cancer Breast Family History; Cancer Colon Family History; Cancer Brain Family History; Cancer Prostate Family History Social History Tobacco Use Types Packs/Day Years Used Date Smoking Tobacco: Every Day Passive Smoke Exposure: Never Smokeless Tobacco: Never Alcohol Use Standard Drinks/Week Comments Yes 3 (1 standard drink = 0.6 oz pur e alcohol) [facility] Utilities Answer Date Recorded In the past 12 months has [employer], gas, oil, or water company threatened to [...] your living situation today? I have a [facility] place to live 11/16/2024 Comments No Sex and Gender Information Value Date Recorded Sex Assigned at Female 11/16/2024 10:08 PM MARKETING CLERK Legal Sex Female 5:26 AM MARKETING CLERK Gender Identity Female 11/16/2024 10:08 PM MARKETING CLERK Sexual Orientation Straight 11/16/2024 10 :08 PM MARKETING CLERK documented as of this encounter Plan of Treatment Not on file documented as of this encounter Procedures Procedure Name Priority Date/Time Associated Diagnosis Comments [facility] [employer] Routine 11/26/2024 3 :07 PM CDT documented in this encounter Results * [facility] [employer] (11/26/2024 3:07 PM CDT) Test Name Jerrica Custom Panel 12/03/2024 9:26 AM CDT [facility] Result SEE COMMENT 12/15/2024 9:32 AM CDT [facility] Comment: For final report, select Lab-Send Out Lab Results hyperlink below. 11/26/2024 3:07 PM CDT 12/03/2024 9:26 AM CDT Nanci Pena APRN, C.N.P., D.N.P., M.S. LAB MISC ORDERABLES Final Result [employer] [address] [place] [address], [facility] [employer] [address] [place] [address] documented in this encounter Visit Diagnoses Diagnosis Cancer Breast Family History Cancer Colon Family History Cancer Brain Family History Cancer Prostate Family History documented in this encounter Care Teams Porter Luggage Relationship Specialty Start Date End Date Elsewhere, Pcp PCP - General Family Medicine 08/01/20 documented as of this encounter
--- OUTSIDE RECORDS SUMMARY | 2025-01-01 12:20 | XMS_ITS | Encounter Summary ---
Author Organization [facility] Address [address] [place] [address] Care Team Providers Care Custom Furrier Name Role Phone Elsewhere, Pcp Primary Care Provider Unavailabl e Encounter Details Date Type Department Care Team (Late st Contact Info) Description 11/12/2024 Orders Only Breast Diagnostic Clinic in [place], [place] [address] [place] [phone] Celeste Casillas M.D. [address] [place] [phone] Other Skin Changes (Primary Dx) Social History Tobacco Use Types Packs/Day Years Used Date Smoking Tobacco: Every Day [facility] Utilities Answer Date Recorded In the past 12 months has e electric, gas, oil, or water company [...] your living situation today? I have a [facility] place to live 11/16/2024 Comments Unknown Sex and Gender Information Value Date Recorded Sex Assigned at Female 11/16/2024 10:08 PM SUPERINTENDENT GEOPHYSICAL LABORATORY Legal Sex Female 5:26 AM SUPERINTENDENT GEOPHYSICAL LABORATORY Gender Identity Female 11/16/2024 10:08 PM SUPERINTENDENT GEOPHYSICAL LABORATORY Sexual Orientation Straight 11/16/2024 10 :08 PM SUPERINTENDENT GEOPHYSICAL LABORATORY documented as of this encounter Plan of Treatment Not on file documented as of this encounter Results * Pathology Review of Outside Material (10/01/2024 10:45 AM SUPERINTENDENT GEOPHYSICAL LABORATORY) 11/20/2024 3:33 PM SUPERINTENDENT GEOPHYSICAL LABORATORY PDRM Report electronically signed by Hollie Beltran M.D. I verify that I have examined all relevant slides/materials for the specimen(s) and rendered or confirmed the diagnosis. A comprehensive consult with review of records that included imaging was performed to assist in the diagnostic assessment of the case. 11/20/2024 3:33 PM SUPERINTENDENT GEOPHYSICAL LABORATORY PDRM Material Received A. [id number]: Left breast 7 stained slides 11/20/2024 3:33 PM SUPERINTENDENT GEOPHYSICAL LABORATORY PDRM Interpretation FINAL DIAGNOSIS A. Left breast, [id number], 10/01/2024: Skin with focal foreign-body type granulomatous inflammation COMMENT Within the mid-dermis is a collection of foreign-body type granulomas. No polarizable material is identified. Clinical pathologic correlation is recommended. Digital imaging was used in the diagnostic assessment of this case. 11/20/2024 3:33 PM SUPERINTENDENT GEOPHYSICAL LABORATORY PDRM Varies 10/01/2024 10:4 5 AM SUPERINTENDENT GEOPHYSICAL LABORATORY 11/12/2024 5:46 PM SUPERINTENDENT GEOPHYSICAL LABORATORY us Celeste Isaac M.D. LAB SURG PATH ORDERAB LES Final Result [facility] [address] [place] [address], [facility] PDRM [address] [place] [phone] documented in this encounter Visit Diagnoses Diagnosis Other Skin Changes- Primary documented in this encounter Care Teams Custom Furrier Relationship Specialty Start Date End Date Elsewhere, Pcp PCP - General Family Medicine 08/01/20 documented as of this encounter
--- OUTSIDE RECORDS SUMMARY | 2025-01-01 12:20 | XMS_ITS | Encounter Summary ---
Author Organization [facility] Address [address] [place] [address] Care Team Providers Care Care Management Specialist Name Role Phone Elsewhere, Pcp Primary Care Provider Unavailabl e Reason for Referral * Outpatient (Routine) - Closed Specialty Diagnoses / Procedures Referred By Cecelia garcia Referred To Contact Clinical Genomics Diagnoses Cancer Breast Family History Celeste Casillas M.D. [address] [place] [address] Phone: tel: fax: [facility] Referral ID Status Reason Start Date Expiration Date Visits Re quested Visits Authorized [id number] Closed 11/17/2024 05/19/2026 1 1 UNTANT CONTROLLER Reason for Visit * Reason Comments Consult Discomfort right darwin ast * Appointment Request (Routine) - Closed Specialty Diagnoses / Procedures Referred By Cecelia garcia Referred To Contact Breast Clinic Diagnoses Pain Breast Cancer Breast Family History Veda Brown M.D. [address] [place] [address] Phone: tel: fax: Referral ID Status Reason Start Date Expiration Date Visits Re quested Visits Authorized [id number] Closed 10/17/2024 01/17/2026 1 1 Encounter Details Date Type Department Care Team (Latest Contact Info) Description 11/17/2024 10:30 AM ACCOUNTANT CONTROLLER Comprehensive Visit Breast Diagnostic Clinic in [place], [place] [address] [place] [address] Celeste Casillas M.D. [address] [place] [address] Cancer Breast Family History (Primary Dx); Mammographic Heterogeneous Density, Bilateral Breasts Social History Tobacco Use Types Packs/Day Years Used Date Smoking Tobacco: Every Day Passive Smoke Exposure: Never Smokeless Tobacco: Never Alcohol Use Standard Drinks/Week Comments Yes 3 (1 standard drink = 0.6 oz pur e alcohol) [facility] Utilities Answer Date Recorded In the past 12 months has e [employer], gas, oil, or water [employer] threatened to shut off services in your [...] your living situation today? I have a [facility] place to live 11/16/2024 Comments No Sex and Gender Information Value Date Recorded Sex Assigned at Female 11/16/2024 10:08 PM ACCOUNTANT CONTROLLER Legal Sex Female 5:26 AM ACCOUNTANT CONTROLLER Gender Identity Female 11/16/2024 10:08 PM ACCOUNTANT CONTROLLER Sexual Orientation Straight 11/16/2024 10 :08 PM ACCOUNTANT CONTROLLER documented as of this encounter Last Filed Vital Signs Vital Sign Reading Time Taken Comments Blood Pressure 138/87 11/17/2024 10:26 AM ACCOUNTANT CONTROLLER Pulse 94 11/17/2024 10:26 AM ACCOUNTANT CONTROLLER Temperature - - Respiratory Rate - - Oxygen Saturation - - Inhaled Oxygen Concentration - - Weight 92.8 kg (204 lb 9.4 oz) 11/17/2024 10:26 AM ACCOUNTANT CONTROLLER Height 169.2 cm (5' 6.61) 11/17/2024 10:26 AM C Body Mass Index 32.42 11/17/2024 10:26 AM ACCOUNTANT CONTROLLER documented in this encounter Consult Notes * Celeste Casillas M.D. - 11/17/2024 10:30 AM CST SUBJECTIVE CHIEF COMPLAINT / REASON FOR VISIT Family history of breast cancer History of Present Illness Ms. Dick is a very pleasant 39 y.o. woman from [facility] [address] who presents today forfurther evaluation and recommendations in regards to a family history of breast cancer in recent left breast biopsy. She first noticed discoloration on her left breast in June 2024, initially thought to be a bruise. The discoloration persisted and changed over time, leading her to seek medical attention. A skin biopsy on October 01, 2024, revealed fibrosing granulation tissue with no malignancy. The skin changes were present for about three months before the biopsy. She experiences discomfort in her right breast, described as an irritating pain present for years, starting from the upper area and radiating downwards. The discomfort became more noticeable after her hysterectomy a few years ago. No lumps are present, but she mentions a past lump identified as a normal duct or lymph node. She reports a thick, viscous discharge from the nipples upon manipulation. Her family history is significant for breast cancer. Her maternal grandmother was diagnosed at 44 and at 49 after metastasis. Her mother had a prophylactic double mastectomy due to high risk, influenced by family history, including her grandmother and two aunts who had breast cancer. Her mother also had genetic testing, which was negative for known mutations. She is the only female of her generation and has not undergone genetic testing herself. BREAST CANCER RISK PROFILE: . One miscarriage or . She was 22 at the time of her 1st parity and 33 at the time of the last 1. She breastfed or her children. She is currently not menarche at age 12. Last menstrual period at age 36, she underwent hysterectomy due to endometriosis and bleeding. Ovaries were retained. She was on control pills for 11 years or more, none before 1974. No history of hormone replacement therapy or fertility medications use. Unknown FAROO[employer] exposure. She denies right-sided breast pain as described above. She has history of a benign breast biopsy. No history of breast surgeries or radiation treatment for a medical condition. She smoked from age [age]. No history of secondhand tobacco exposure. She drinks 1-2 alcoholic beverages per week. She exercises 30 minutes or more per day for at least 3 days per week. Current body weight 199 lb, body weight a year ago 262 lb, she has been working with a dietitian that help her with weight loss. Maximum adult height 5'6-3/4. She is white, not his panic or . She is not adopted. FAMILY HISTORY Maternal grandmother had breast cancer at 44 and of breast cancer at age 49. One maternal uncle had lymphoma before age 50. Mother genetic testing was reportedly negative. In addition, 2 maternal great aunts and 4 of her mom's maternal cousins had breast cancer. Current Medications[1] Allergies[2] REVIEW OF SYSTEMS Please see HPI. All other systems reviewed as pertinent and are negative. The following portions of the patient's history were reviewed and updated as appropriate: allergies, current medications, family history, medical history, social history, surgical history and problemlist. OBJECTIVE VITAL SIGNS BP 138/87 (BP Location: Right arm, Patient Position: Sitting, Cuff Size: Large) Pulse 94 Ht 169.2 cm Wt 92.8 kg BMI 32.42 kg/m?? PHYSICAL EXAMINATION Constitutional: She appears well-developed and well-nourished. No distress. Neck: Normal range of motion. Neck supple. No thyromegaly present. Breast: Both breasts are approximate same size and relatively symmetric. No significant skin discolorations, lesions, retractions or dimpling. Both nipples everted. Careful palpation demonstrates no significant palpable abnormalities on either breast. No expressible nipple discharge. Lymphadenopathy: No enlarged submental, supraclavicular, occipital, cervical, axillary adenopathy. Skin: Skin is warm and dry. No rash noted. Psychiatric: She has a normal mood and affect. ASSESSMENT / PLAN #1 Cancer Breast Family History, maternal grandmother had breast cancer at age 44 #2 Increased breast density I reviewed with the patient the family history of breast and other cancers. I discussed the various breast cancer risk estimation models including the Christa Model and the Tyrer-Cuzick model. We discussed the advantages and limitations of each model in estimating the risk of breast cancer. The Tyrer-Cuzick model estimated 5 year risk is 0.5% 10 year risk is 1.4% and the estimated lifetime risk is 12.6%. Based on this calculation patient has an average breast cancer risk. She is interested in medical genetics consult. I have requested a referral. We discussed the finding of dense breast tissue on the patient's mammogram. She was informed that breast density is common (approximately 40% to 50% of women undergoing screening mammography have dense tissue) and reflects the proportion of glandular and other tissues that look white on mammogram (dense tissue) to nondense fatty tissue. High breast density reduces mammographic sensitivity by potentially obscuring abnormalities, including cancer. Women with dense breasts are also considered atincreased breast cancer risk compared with women with nondense breasts. Yearly screening mammogram is still recommended for women with dense breasts. We discussed the potential benefits, limitations, and risks of screening mammograms. Supplemental breast cancer screening (i.e., imaging tests in addition to mammography) is an option for women with dense breasts. The options of whole breast ultrasound, tomosynthesis (3D mammogram), molecular breast imaging (MBI) and magnetic resonance imaging (MRI) were reviewed. Whole breast screening ultrasound is not recommended due to minimal improvement in detection and high false positive rate. Breast MRI screening is indicated only for women at very high risk based on the [employer] Cancer Society guidelines for MRI screening. MBI and tomosynthesis (also called 3D mammography) are supplemental screening options regardless of breast cancer risk level. Based on her risk factors and eligibility, the options for supplemental screening for the patient include tomosynthesis and MBI. We discussed the potential benefits, limitations, and risks of these options. Specifically, tomosynthesiscan detect one to two additional cancers per 1000 women compared to 2D mammograms, reduces recall ra tirso for overlapping normal tissue, and is performed at the time of the 2D screening mammogram. MBI can detect eight to nine additional cancers per 1000 women and is done without significant breast tissue compression but requires an intravenous injection of a small dose of radiotracer material. We discussed costs of the tests and the possibility that they may not be covered by insurance. We also discussed that there is no data that these tests are cost- effective or reduce breast cancer deaths, and no studies have been done comparing these studies for women with dense breasts. Due to her increased breast density have recommended to consider supplemental screening with MBI every other year starting at age 40. I will contact patient with final recommendations after medical genetics consult. PATIENT EDUCATION: Ready to learn, no apparent learning barriers were identified; learning preferences include listening. Explained diagnosis and treatment plan; patient expressed understanding of the content. [1] Current Outpatient Medications: cetirizine (ZyrTEC) 10 mg tablet, Take 10 mg by mouth 2 (two) times a day., Disp: , Rfl: cholecalciferol, vitamin D3, 25 mcg (1,000 Unit) tablet, Take 1 tablet by mouth daily., Disp: , Rfl: phentermine HCl (PHENTERMINE ORAL), Take 1.5 tablets by mouth daily. Pt unsure of dose, Disp: , Rfl: sertraline (Zoloft) 50 mg tablet, Take 2 tablets by mouth daily., Disp: , Rfl: [2] Allergies Allergen Reactions Mupirocin Rash In antibiotic ointment UNTANT CONTROLLER documented in this encounter Plan of Treatment Scheduled Referrals Name Type Priority Associated Diagnoses Orde r Schedule Clinical Genomics - Cancer genetics consult (clinic) Outpatient Referral Routine Cancer Breast Family History Expected: 11/17/2024, Expires: 02/17/2026 documented as of this encounter Visit Diagnoses Diagnosis Cancer Breast Family History- Primary Mammographic Heterogeneous Density, Bilateral Breasts documented in this encounter Care Teams Care Management Specialist Relationship Specialty Start Date End Date Elsewhere, Pcp PCP - General Family Medicine 08/01/20 documented as of this encounter
--- OUTSIDE RECORDS SUMMARY | 2025-01-01 12:20 | XMS_ITS | Clinical Summary ---
Author Organization [employer] [facility] Address [address] [place] [address] Care Team Providers Care Oil Sales And Service Rep Name Role Phone Jorje Goodwin MD Unavailable [phone] Celina Espinoza MD Primary Care Provider + Allergies Active Allergy Reactions Criticality Noted Date Comments Mupirocin Rash High 01/04/2022 Medications vitamin-folic acid 1 mg ( FORMULA) tablet/capsule Take 1 tablet by mouth once daily. 0 4 Active cholecalciferol (VITAMIN D) 1,000 unit tablet Take 1 tablet by mouth once daily. 0 4 Active LUTERA, 28, 0.1-20 mg-mcg tablet Take 1 tablet by mouth once daily. 4 Active sertraline (ZOLOFT) 50 mg tablet Take 1 tablet by mouth once daily. 0 7 Active FA-B Com&C-Rice Bran-Shelley Hips 400-500 mcg-mg tab Daily Active Cholecalciferol- Soy Isoflavone 2,000-64 unit-mg tab Bedtime Active amitriptyline (ELAVIL) 50 mg tablet TAKE 1 TABLET BY MOUTH EVERYDAY AT BEDTIME 2 Active Ferrous Gluconate 324 mg (38 mg iron) tablet Daily Active L norgest/e.estrad ioL-e.estrad (SEASONIQUE) 0.15 mg-30 mcg (84)/10 mcg (7) tab Take 1 Tablet by mouth once daily. 2 Active zinc sulfate 50 mg zinc (220 mg) capsule Daily Active polyethylene glycol-electroly te (GOLYTELY) 236-22.74-6.74 -5.86 gram suspensionIndica tions:Encounter for screening colonoscopy Drink 3 liters (3/4 of bottle) the day prior to colonoscopy and 1 liter (remaining 1/4 of bottle) 6 hours prior to colonoscopy appointment 4000 mL 2 Active Active Problems No known active problems [...] and Fami ly Not on file 03/08/2022 Comments No Sex and Gender Information Value Date Recorded Sex Assigned at Not on file Legal Sex Female 5:24 AM DRAUGHTSMAN Gender Identity Not on file Sexual Orientation Not on file Obstetrics History Last Filed Vital Signs Vital Sign Reading Time Taken Comments Blood Pressure 143/94 03/08/2022 4:15 PM CDT Pulse 99 03/08/2022 4:15 PM CDT Temperature 36.7 C (98.1 F) 08/21/2017 5:34 PM DRAUGHTSMAN Respiratory Rate - - Oxygen Saturation 98% 03/08/2022 4:15 PM CDT Inhaled Oxygen Concentration - - Weight 113.9 kg (251 lb) 03/08/2022 4:15 PM CDT Height 167 cm (5' 5.75) 08/21/2017 5:34 PM DRAUGHTSMAN Body Mass Index 40.82 08/21/2017 5:34 PM DRAUGHTSMAN Plan of Treatment Health Maintenance Due Date Last Done Comments Tdap 1998 Depression screening for age 12+ 1999 HIV for age 15-65 2002 Hepatitis C screening for age 18-79 2005 Tetanus booster 2007 BMI (ht and wt on same day) for age 18+ 08/21/2018 08/21/2017, 10/21/2016 Pap test for age 21-65 10/11/2023 1, 10/11/2020, 02/15/2018, Additional history exists COVID-19 vaccine series (2023- season) 2024 Influenza Vaccine (Season Ended) 2025 Pneumococcal series for age 6-49 Aged Out No longer eligible based on patient's age to complete this topic Procedures Procedure Name Priority Date/Time Associated Diagnosis Comments [employer] MEMBER THIN PREP PAP SCREEN IMAGED Routine 10/11/2020 2:30 PM DRAUGHTSMAN from Last 3 Months or Most Recently Relevant to Health Maintenance Results * [employer] MEMBER THIN PREP PAP SCREEN IMAGED (10/11/2020 2:30 PM DRAUGHTSMAN) Case Report Gynecologic Cytology Report Case: [id number] Authorizing Provider: Ashlee Bonner MD Collected: 10/11/2020 1430 Ordering Location: [facility] Received: 10/13/2020 1041 First Screen: Tena Casillas Specimen: [employer] MEMBER ThinPrep Vial Screening, Cervical/Vaginal 10/21/2020 5:13 PM DRAUGHTSMAN [facility]- ENTRAL LAB[facility]ATORY INTERPRETATION/ RESULT NEGATIVE FOR INTRAEPITHELIAL LESION OR MALIGNANCY (NIL) (none) 10/21/2020 5:13 PM DRAUGHTSMAN [facility]ORATORY at 1713 DRAUGHTSMAN SPECIMEN ADEQUACY Satisfactory for evaluation Endocervical component present 10/21/2020 5:13 PM DRAUGHTSMAN [facility] HPV REQUEST HPV and PAP 10/21/2020 5:13 PM DRAUGHTSMAN [facility] Date of LMP 10/10/2020 10/21/2020 5:13 PM DRAUGHTSMAN [facility] Last Pap Date 02/15/2018 10/21/2020 5:13 PM DRAUGHTSMAN [facility] Last Pap Result NIL 5:13 PM DRAUGHTSMAN [facility] Comment:negative HPV Additional Information 10/21/2020 5:13 PM DRAUGHTSMAN [facility] Comment: Interpreted at [facility] - [address], [place] [address] Automated Review Successful 10/21/2020 5:13 PM DRAUGHTSMAN [facility] ENTRAL [facility] Comment:Specimen processed s uccessfully by automated wet cotton feeder device, ThinPrep Imaging System, [employer] ANCILLARY TESTING [employer] MEMBER HPV Ordered, Please see separate report 10/21/2020 5:13 PM DRAUGHTSMAN [facility] ENTRAL LABORATORY Note The pap test is [...] pre-malignant and malignant lesions. 10/21/2020 5:13 PM DRAUGHTSMAN [facility] EN[facility]AL [facility] Other (Cervical/Vagina l) 10/11/2020 2:30 PM DRAUGHTSMAN 10/13/2020 10:41 AM DRAUGHTSMAN us Ashlee Bonner MD PATHOLOGY/CYTOLOGY Final R esult [facility] [address] [place] [address], from Last 3 Months or Most Recently Relevant to Health [place] [address] [facility] MEDICAID Care Teams Oil Sales And Service Rep Relationship Specialty Start Date End Date Celina Espinoza MD [address] [place] [address] PCP - General Family Practice 03/08/22 Jorje Goodwin MD [address] [place] [id number] Sports Medicine 12/12/11
--- OUTSIDE RECORDS SUMMARY | 2025-01-01 12:21 | XMS_ITS | Encounter Summary ---
Author Organization [facility] Address [address] [place] [address] Care Team Providers Care Electrical Lineworker Name Role Phone Elsewhere, Pcp Primary Care Provider Unavailabl e Encounter Details Date Type Department Care Team (Late st Contact Info) Description 12/16/2024 Results Follow-Up Department of Medical Genetics in [place], [place] [address] [place] [address] Shelley De [facility] Genetics Social History Tobacco Use Types Packs/Day Years Used Date Smoking Tobacco: Every Day Passive Smoke Exposure: Never Smokeless Tobacco: Never Alcohol Use Standard Drinks/Week Comments Yes 3 (1 standard drink = 0.6 oz pur e alcohol) [facility] Utilities Answer Date Recorded In the past 12 months has [facility] [employer], gas, oil, or water [employer] threatened to shut off services in your [...] your living situation today? I have a [facility] place to live 11/16/2024 Comments No Sex and Gender Information Value Date Recorded Sex Assigned at Female 11/16/2024 10:08 PM E COMMERCE SPECIALIST Legal Sex Female 5:26 AM E COMMERCE SPECIALIST Gender Identity Female 11/16/2024 10:08 PM E COMMERCE SPECIALIST Sexual Orientation Straight 11/16/2024 10 :08 PM E COMMERCE SPECIALIST documented as of this encounter Plan of Treatment Not on file documented as of this encounter Visit Diagnoses Not on filedocumented in this encounter Care Teams Electrical Lineworker Relationship Specialty Start Date End Date Elsewhere, Pcp PCP - General Family Medicine 08/01/20 documented as of this encounter
--- OUTSIDE RECORDS SUMMARY | 2025-01-01 12:21 | XMS_ITS | Encounter Summary ---
Author Organization [facility] Address [address] [place] [address] Care Team Providers Care Relay Repairer Name Role Phone Elsewhere, Pcp Primary Care Provider Unavailabl e Reason for Visit * Reason Onset Date Comments OSM - Outside Materials 10/22/2024 Encounter Details Date Type Department Care Team (Latest Contact Info) Description 10/22/2024 Clinical Communication Breast Diagnostic Clinic in [place], [place] [address] [place] [address] Celeste Casillas M.D. [address] [place] [address] OSM - Outside Materials Social History Tobacco Use Types Packs/Day Years Used Date Smoking Tobacco: Every Day [facility] Utilities Answer Date Recorded In the past 12 months has [employer], gas, oil, or water [employer] threatened to shut off services in your [...] your living situation today? I have a [facility] place to live 11/16/2024 Comments Unknown Sex and Gender Information Value Date Recorded Sex Assigned at Female 11/16/2024 10:08 PM LIABILITY CLAIMS REPRESENTATIVE Legal Sex Female 5:26 AM LIABILITY CLAIMS REPRESENTATIVE Gender Identity Female 11/16/2024 10:08 PM LIABILITY CLAIMS REPRESENTATIVE Sexual Orientation Straight 11/16/2024 10 :08 PM LIABILITY CLAIMS REPRESENTATIVE documented as of this encounter Miscellaneous Notes * Telephone Encounter - Era Meyer - 11/13/2024 12:13 PM LIABILITY CLAIMS REPRESENTATIVE 11/13 Imaging already in review Path received and currently in review at lab ILITY CLAIMS REPRESENTATIVE * Telephone Encounter - Era Meyer - 11/05/2024 11:25 AM LIABILITY CLAIMS REPRESENTATIVE Start OSM Request: 11/03 Era fernandes OSM Request: 11/05 Faxed request to [facility] for 10/01/24 Pathology Case: [id number] Left breast [employer] 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 - 10/22/2024 4:10 PM LIABILITY CLAIMS REPRESENTATIVE STOP CHECK CARE EVERYWHERE BEFORE SENDING REQUEST We are waiting for, please request the items below for this patient. [facility] Breast Clinic Indication/ Reason for appt: Breast Pain, Breast Cancer Family History Bilateral Imaging Needed: Last 5 mammograms, breast ultrasounds, axillary ultrasounds (up to 3 years old). Any breast MRIs in last 3 years. Facility, City, and Date Completed at: [facility] [place], [place] Mammogram: 09/29/2024, 02/06/2024, 06/12/2022, 11/04/2021 Ultrasound: 09/29/2024, 06/12/2022 Records Needed: All reports from the above requested imaging All operative and pathology reports from biopsies and surgeries pertaining to breast consult diagnosis, from original diagnosis to present All molecular/Genetic testing reports Other: Facility, City, and Date Completed at: ([facility] to Complete) Pathology needed: Any breast biopsies performed related to breast consult indication Facility, City, and Date [facility]opsy[facility] 09/05/2022 NURSING ONLY What are you current symptoms? Bilateral Breast Pain Which quadrant are the symptoms located in? Does this indication involve abscess, infection, inflammation, or cellulitis? Which side and quadrant? What have been the outcomes or recommendations from that evaluation? Wanting genetic testing done due family history, and having MRI and mammogram alternating. What are you hoping to accomplish with this visit? Set up routine care, and with family history wants to start seeing the breast specialist. Appointment Scheduled: Yes Date: 11/17/2024 Do you want a reply once all OSM/Images are uploaded? YES Note: You will still get replies if not all records are obtained. FOR OSM TEAM ONLY Please reply to [facility] OSM. ILITY CLAIMS REPRESENTATIVE documented in this encounter Plan of Treatment Not on file documented as of this encounter Results * Interpretation of Outside Breast Imaging (10/24/2024 9:02 AM LIABILITY CLAIMS REPRESENTATIVE) Anatomical Region Laterality Modality Breast, Breast Imaging RST L OS, Breast Imaging ARZ LOS, Breast Imaging FLA LOS, Other N/A Mammography Impressions 11/05/2024 8:15 AM LIABILITY CLAIMS REPRESENTATIVE 1. No mammographic or sonographic findings of malignancy in either breast. 2. Recommend annual screening mammography and clinical management of the breast pain. Narrative 11/05/2024 8:15 AM LIABILITY CLAIMS REPRESENTATIVE EXAM: INTERPRETATION OF OUTSIDE BREAST IMAGING, INTERPRETATION OF OUTSIDE BREAST IMAGING HISTORY/INDICATION: 39-year-old female presenting to an outside institution with bilateral breast pain and a skin changes in the left breast. Status post breast skin biopsy on 10/06/2024, demonstrating inflammatory infiltrates without evidence of neoplastic process DENSITY: c. The breast(s) are heterogeneously dense, which may obscure small masses. FINDINGS: Interpretation of outside diagnostic mammography dated 09/29/2024 is compared to prior study of 02/06/2024, 11/04/2021 and 06/21/2020. Ultrasound of both breasts dated 10/02/2024. Ultrasound of the right axilla dated 02/06/2024. Ultrasound of the right breast dated 06/12/2022. Right breast: No mammographic findings of malignancy. Ultrasound images of the right breast labeled at 3:00 7 cm from the nipple, demonstrated normal-appearing tissues without a suspicious abnormality. Ultrasound of the right breast targeted to the 11:00, 2 cm from the nipple dated 06/12/2022, demonstrated a 6 mm benign-appearing sebaceous/epidermoid cyst. Negative ultrasound of the right axilla dated 02/06/2024 Left breast: No mammographic findings of malignancy. Ultrasound images of the left breast labeled at 5:00, 9 cm from the nipple and 9:00, 6 cm from the nipple, demonstrated normal-appearing tissues without a suspicious abnormality. Procedure Note Kuldeep Palacios M.D. - 11/05/2024 EXAM: INTERPRETATION OF OUTSIDE BREAST IMAGING, INTERPRETATION OF OUTSIDEBREAST IMAGING HISTORY/INDICATION: 39-year-old female presenting to an outsideinstitution with bilateral breast pain and a skin changes in the leftbreast. Status post breast skin biopsy on 10/06/2024, demonstratinginflammatory infiltrates without evidence of neoplastic process DENSITY: c. The breast(s) are heterogeneously dense, which may obscuresmall masses. FINDINGS: Interpretation of outside diagnostic mammography date09/29/2024 is compared to prior study of 02/06/2024, 11/04/2021 and06/21/2020. Ultrasound of both breasts dated 10/02/2024. Ultrasound of theright axilla dated 02/06/2024. Ultrasound of the right breast dated 06/12/2022. Right breast: No mammographic findings of malignancy. Ultrasound images ofthe right breast labeled at 3:00 7 cm from the nipple, demonstratednormal-appearing tissues without a suspicious abnormality. Ultrasound of the right breast targeted to the 11:00, 2 cm from the nippledated 06/12/2022, demonstrated a 6 mm benign-appearing sebaceous/epidermoidcyst. Negative ultrasound of the right axilla dated 02/06/2024 Left breast: No mammographic findings of malignancy. Ultrasound images ofthe left breast labeled at 5:00, 9 cm from the nipple and 9:00, 6 cm fromthe nipple, demonstrated normal-appearing tissues without a suspiciousabnormality. IMPRESSION: 1. No mammographic or sonographic findings of malignancy in eitherbreast. 2. Recommend annual screening mammography and clinical management of thebreast pain. us Celeste SMITHG BI PROCEDURES Fin al Result documented in this encounter Visit Diagnoses Diagnosis Pain Breast- Primary Cancer Breast Family History Pain Breast Cancer Breast Family History documented in this encounter Care Teams Relay Repairer Relationship Specialty Start Date End Date Elsewhere, Pcp PCP - General Family Medicine 08/01/20 documented as of this encounter
--- OUTSIDE RECORDS SUMMARY | 2025-01-01 12:21 | XMS_ITS | Clinical Summary ---
Author Organization [facility] Address [address] [place] [address] Care Team Providers Care Hot Man Name Role Phone Elsewhere, Pcp Primary Care Provider Unavailabl e Source Comments Patient records contain information from all sites at [facility]. For routine questions regarding patient records, call [phone] during business hours, M-F 8:00 AM - 5:00 PM Central Time. Record requests for emergency care only can be directed to [phone] at any time.[facility] Allergies Active Allergy Reactions Criticality Noted Date Comments Mupirocin Rash Medium 01/04/2022 In antibiotic ointment Medications cholecalciferol , vitamin D3, 25 mcg (1,000 Unit) tablet Take 1 tablet by mouth daily. 04/20/2014 Active sertraline (Zoloft) 50 mg tablet Take 2 tablets by mouth daily. 10/21/2016 Active phentermine HCl (PHENTERMINE ORAL) Take 1.5 tablets by mouth daily. Pt unsure of dose Active cetirizine (ZyrTEC) 10 mg tablet Take 10 mg by mouth 2 (two) times a day. Active Encounters Date Type Department Care Team Description 12/16/2024 Results Follow-Up Department of Medical Genetics in [place], [place] [address] [place] [address] Shelley De 12/16/2024 Documentation Department of Medical Genetics in [place], [place] [address] [place] [phone] SantinoShelley Prabhu Genetic Testing Results: Negative 11/27/2024 8:15 AM CDT Lab [facility] [address] [place] [phone] Nanci Pena APRN, C.N.P., Corina.N.P., M.S. Cancer Breast Family History; Cancer Colon Family History; Cancer Brain Family History; Cancer Prostate Family History 11/26/2024 2:58 PM CDT - 11/26/2024 11:59 PM CDT Hospital Encounter Department of Laboratory Medicine in [address] [phone] Nanci Pena APRN, C.N.P., Corina.N.P., M.S. Cancer Breast Family History; Cancer Colon Family History; Cancer Brain Family History; Cancer Prostate Family History Discharge Disposition: Home or Self Care 11/21/2024 Results Follow-Up Breast Diagnostic Clinic in [place], [place] [address] [place] [phone] Celeste Casillas M.D. Pathology Review of Outside Material 11/18/2024 10:30 AM REGRINDER OPERATOR Telemedicine Department of Medical Genetics in [place], [place] [address] [place] [phone] Celeste Casillas M.D. Rogen, Kara R MAdiel, [facility] Cancer Colon Family History (Primary Dx); Cancer Breast Family History; Cancer Brain Family History; Cancer Prostate Family History 11/18/2024 Clinical Communication Department of Medical Genetics in [place], [place] [address] [place] [phone] Vivian Estes MAdiel, CGC Ambry:KR 11/17/2024 10:30 AM REGRINDER OPERATOR Comprehensive Visit Breast Diagnostic Clinic in [place], [place] [address] [place] [phone] Celeste Casillas M.D. Cancer Breast Family History (Primary Dx); Mammographic Heterogeneous Density, Bilateral Breasts 11/14/2024 3:30 PM REGRINDER OPERATOR Clinical Communication Virtual Review in [place], [place] [address] [place] [address] Pre-visit Intake 11/12/2024 3:30 PM REGRINDER OPERATOR Lab [facility] [address] [place] [phone] Celeste Casillas M.D. Other Skin Changes 11/12/2024 Orders Only Breast Diagnostic Clinic in [place], [place] [address] [place] [phone] Celeste Casillas M.D. Other Skin Changes (Primary Dx) 10/24/2024 9:25 AM REGRINDER OPERATOR Ancillary Procedure Department of Radiology in [place], [place] [address] [place] [phone] Ceelste Casillas M.D. Pain Breast; Cancer Breast Family History 10/24/2024 8:35 AM REGRINDER OPERATOR Ancillary Procedure Department of Radiology in [place], [place] [address] [place] [phone] Celeste Casillas M.D. Pain Breast; Cancer Breast Family History 10/22/2024 Clinical Communication Breast [facility] Clinic in [place], [place] [address] [place] [phone] Celeste Casillas M.D. OSM - Outside Materials from Last 3 Months Immunizations Immunization Administration Dates Next Due HepB Adult 11/13/2018, 7,07/05/2016,2015 Influenza, Injectable, Quadrivalent 07/01/2019 Influenza, Seasonal, Injectable 06/13/2012 SARS-COV-2 (COVID-19) - PFIZ ER (Discontinued)(12 years or older) 10/26/2020,10/05/2020 Tdap 01/16/2019,05/27/2015 influenza vaccine quad (FLUZONE/FLUARIX) (6 months and older)(PF) 08/09/2018,06/01/2016 Family History Medical History Relation Name Comments Breast cancer Aunt 1 Dora TNBC Breast cancer Aunt 2 Xochitl TNBC Negative genetic testing Aunt 2 Xochitl ADD Brother 1 Jatinder Anxiety disorder Brother 1 Jatinder Bicuspid aortic valve Brother 1 Jatinder Migraines Brother 1 Jatinder Anxiety disorder Brother 2 Jorge Depression Brother 2 Jorge Anxiety disorder Daughter Asthma Daughter Anxiety disorder Father Clotting disorder Father Diabetes Father Hypertension Father Asthma Father's Brother 1 Hypertension Father's Brother 1 Migraines Father's Brother 1 Non-Hodgkin lymphoma Father's Brother 1 Sleep apnea Father's Brother 1 Anxiety disorder Father's Brother 2 Hyperlipidemia Father's Brother 2 Hypertension Father's Brother 2 Obesity Father's Brother 2 Sleep apnea Father's Brother 2 Alcohol abuse Maternal Grandfather Arthritis Maternal Grandfather Coronary artery disease Maternal Grandfather Hyperlipidemia Maternal Grandfather Hypertension Maternal Grandfather Sleep apnea Maternal Grandfather Breast cancer Maternal Grandmother TNBC, unilateral mastectomy, recurred at 47 and metastasized Prostate cancer Maternal Great Grandfather metastatic Colon cancer Maternal Great Grand mother 2 Anesthesia problems Mother Anxiety disorder Mother Asthma Mother Brain Tumor Mother unknown type Colon polyps Mother Depression Mother Hypertension Mother Hysterectomy Mother BSO at age 55 Mastectomy Mother Migraines Mother Negative genetic testing Mother 201 0-2011 (likely just BRCA1/2) and again in 2020 (likely just for brain tumors + Parkinson's) Seizures Mother Ulcerative colitis Mother ADD Mother's Brother 1 Alcohol abuse Mother's Brother 1 Anxiety disorder Mother's Brother 1 Depression Mother's Brother 1 Diabetes Mother's Brother 1 Hypertension Mother's Brother 1 Alcohol abuse Mother's Sister 1 Anxiety disorder Mother's Sister 1 Colon polyps Mother's Sister 1 Depression Mother's Sister 1 Drug abuse Mother's Sister 1 Hypertension Mother's Sister 1 Migraines Mother's Sister 1 Obesity Mother's Sister 1 Positive genetic testing Mother's Sister 1 no info about specific gene other than it's related to colon cancer Psychiatric Mother's Sister 1 ADD Mother's Sister 2 Alcohol abuse Mother's Sister 2 Anxiety disorder Mother's Sister 2 Clotting disorder Mother's Sister 2 Depression Mother's Sister 2 Hypertension Mother's Sister 2 Alcohol abuse Paternal Grandfather Arthritis Paternal Grandfather Coronary artery disease Paternal Grandfather Hyperlipidemia Paternal Grandfather Hypertension Paternal Grandfather Stroke Paternal Grandfather Alcohol abuse Paternal Grandmother Arthritis Paternal Grandmother Colon polyps Paternal Grandmother Hypertension Paternal Grandmother Migraines Paternal Grandmother Anxiety disorder Son 1 Depression Son 1 Anxiety disorder Son 2 Prostate cancer Uncle 1 Prostate cancer Uncle 2 Relation Name Status Comments Aunt 1 Dora Aunt 2 Xochitl Alive Aunt 3 Alive precancerous po lyps and uterine fibroids Aunt/Uncle THREE Brother 1 Jatinder Alive Brother 2 Jorge Alive Brother 3 Himanshu Alive Daughter Alive Father Alive Father's Brother 1 Alive Father's Brother 2 Alive Maternal Cousin 1 Alive Maternal Cousin 2 Alive Maternal Grandfather (Age 76) Maternal Grandmother (Age 49) Maternal Great Grandfather Maternal Great Grandmother 1 Maternal Great Grandmother 2 Mother Alive Mother's Brother 1 Alive Mother's Brother 2 Alive Mother's Sister 1 Alive Mother's Sister 2 Alive Niece/Nephew 1 Alive Niece/Nephew 2 Alive Niece/Nephew 3 Alive Paternal Grandfather Alive Paternal Grandmother Alive Son 1 Alive Son 2 Alive Uncle 1 (Age 56) Uncle 2 (Age 80) Social History Tobacco Use Types Packs/Day Years Used Date Smoking Tobacco: Every Day Passive Smoke Exposure: Never Smokeless Tobacco: Never Tobacco Cessation:Ready to Q uit: Not Asked; Counseling Given: Not Answered Alcohol Use Standard Drinks/Week Comments Yes 3 (1 standard drink = 0.6 oz pur e alcohol) [facility] [employer] Answer Date Recorded In the past 12 months has [employer], gas, oil, or water [employer] threatened to shut off services in your [...] your living situation today? I have a [facility] place to live 11/16/2024 Comments No Sex and Gender Information Value Date Recorded Sex Assigned at Female 11/16/2024 10:08 PM REGRINDER OPERATOR Legal Sex Female 5:26 AM REGRINDER OPERATOR Gender Identity Female 11/16/2024 10:08 PM REGRINDER OPERATOR Sexual Orientation Straight 11/16/2024 10 :08 PM REGRINDER OPERATOR Last Filed Vital Signs Vital Sign Reading Time Taken Comments Blood Pressure 138/87 11/17/2024 10:26 AM REGRINDER OPERATOR Pulse 94 11/17/2024 10:26 AM REGRINDER OPERATOR Temperature - - Respiratory Rate - - Oxygen Saturation - - Inhaled Oxygen Concentration - - Weight 92.8 kg (204 lb 9.4 oz) 11/17/2024 10:26 AM REGRINDER OPERATOR Height 169.2 cm (5' 6.61) 11/17/2024 10:[address] Body Mass Index 32.42 11/17/2024 10:26 AM REGRINDER OPERATOR Plan of Treatment Health Maintenance Due Date Last Done Comments HIV Screening 1987 Hepatitis C Screening 1987 Lipid (Cholesterol) Screening 1987 Tobacco Cessation counseling 1987 Pneumococcal vaccine (0-49 years) (1 of 2 - PCV) 2006 COVID-19 Vaccine (3 - 2023- season) 2024 10/26/2020, 10/05/2020 Influenza Vaccine (#1) 2024 9, 08/09/2018, 06/01/2016, Additional history exists Depression Screening (Annual PHQ-2) 09/17/2024 DTaP,Tdap,and Td Vaccines (3 - Td or Tdap) 01/16/2029 01/16/2019, 05/27/2015 Hepatitis B Vaccines Completed 11/13/2018, 11/13/2016, 07/05/2016, Additional history exists Cervical/Vaginal Cancer Screening Discontinued 10/11/2020, 02/28/2011 (Performed elsewhere), 09/30/2003 HPV Vaccines Aged Out No longer eligi ble based on patient's age to complete this topic IPV Vaccines Aged Out No longer eligi ble based on patient's age to complete this topic Medical Devices Implanted Type Area Slunk Skinner Device Identifier Shelf Expiration Date Model / Serial / Lot Bladder Sling Mesh or Patch Bladder Procedures Procedure Name Priority Date/Time Associated Diagnosis Comments [facility] Routine 11/26/2024 3 :07 PM CDT CRYOPRESERVATION FOR MOLEC STUDIES Routine 11/26/2024 3:07 PM CDT Cancer Breast Family History Cancer Colon Family History Cancer Brain Family History Cancer Prostate Family History INTERPRETATION OF OUTSIDE BREAST IMAGING RAD - Routine (most inpatients and all outpatients) 10/24/2024 9:25 AM REGRINDER OPERATOR Pain Breast Cancer Breast Family History INTERPRETATION OF OUTSIDE BREAST IMAGING RAD - Routine (most inpatients and all outpatients) 10/24/2024 9:02 AM REGRINDER OPERATOR Pain Breast Cancer Breast Family History PATHOLOGY MEDICAL DOCTOR NUCLEAR MEDICINE CYTOLOGY Routine 7:46 PM REGRINDER OPERATOR from Last 3 Months or Most Recently Relevant to Health Maintenance Results * [facility] (11/26/2024 3:07 PM CDT) Test Name Jerrica Custom Panel 12/03/2024 9:26 AM CDT AMBR Result SEE COMMENT 12/15/2024 9:32 AM CDT AMBR Comment: For final report, select Lab-Send Out Lab Results hyperlink below. 11/26/2024 3:07 PM CDT 12/03/2024 9:26 AM CDT Nanci Pena APRN, C.N.P., D.N.P., M.S. LAB [facility] ORDERABLES Final Result [facility] [employer] [address] [place] [address], [facility] AMBR [facility] [address] [place] [address] * Cryopreservation for Molecular Genetic Studies (11/26/2024 [...] is not a DNA banking service. If terminal operator, guaranteed specimen storage is required, DNA banking [...] D.N.P., M.S. LAB GENETIC TESTING Final Result [facility] [address] [place] [address], [facility] DTL [address] [place] [address] * Interpretation of Outside Breast Imaging (10/24/2024 9:25 AM REGRINDER OPERATOR) Only the most recent of2 resultswithin the time period is included. Anatomical Region Laterality Modality Breast, Breast Imaging RST L OS, Breast Imaging ARZ LOS, Breast Imaging FLA LOS, Other N/A Mammography Impressions 11/05/2024 8:15 AM REGRINDER OPERATOR 1. No mammographic or sonographic findings of malignancy in either breast. 2. Recommend annual screening mammography and clinical management of the breast pain. Narrative 11/05/2024 8:15 AM REGRINDER OPERATOR EXAM: INTERPRETATION OF OUTSIDE BREAST IMAGING, INTERPRETATION [...] clinical management of thebreast pain. us Celeste Isaac M.D. IMG BI PROCEDURES Fin al Result * Pathology MEDICAL DOCTOR NUCLEAR MEDICINE Cytology (09/30/2003 7:46 PM REGRINDER OPERATOR) 09/30/2003 7:46 PM REGRINDER OPERATOR 09/30/2003 7:46 PM REGRINDER OPERATOR Narrative [facility] - 09/30/2003 7:46 PM REGRINDER OPERATOR 09/29/2003 Cytology Gynecological ([id number]) Requested By: Matilde Cabrera M.D. [phone] DIAGNOSIS: A. Cervical/Endocervical Smear Screen: Satisfactory for evaluation. Negative for intraepithelial lesion or malignancy. 10/01/2003 MATTIE Morales (ASCP) Elizabeth Teixeira M.D. [phone] SPECIMEN DESCRIPTION: Procedure Note 12/08/2017 09/29/2003 Cytology Gynecological ([id number]) Requested By: Matilde Cabrera M.D. [phone] DIAGNOSIS: A. Cervical/Endocervical Smear Screen: Satisfactory for evaluation. Negative for intraepithelial lesion or malignancy. 10/01/2003 Marcie Peres , MATTIE (ASCP) Elizabeth Teixeira M.D. [phone] SPECIMEN DESCRIPTION: us Historical Provider LAB PAP COPATH ORDERABLES Fi nal Result [facility] [place] [address] [place] [id number], [facility] from Last 3 Months or Most Recently Relevant to Health Maintenance Insurance [facility] Care Teams Hot Man Relationship Specialty Start Date End Date Elsewhere, Pcp PCP - General Family Medicine 08/01/20
--- NOTE | 2025-01-01 12:37 | ED.ABDPAIN ---
HPI - Abdominal Pain General Time Seen by Provider: 12:37 Date Seen: 01/01/25 Chief Complaint: Abdominal Pain Stated Complaint: Has a UTI- not feeling well Time Seen by Provider: 01/01/25 12:37 Source: patient and RN notes reviewed Mode of arrival: ambulatory Limitations: no limitations History of Present Illness HPI narrative: Vangie is a 39-year-old female with a history of a bladder sling August of 2023 with history of recurrent UTI and chronic dysuria who comes to the emergency room with known UTI, nausea and fever. Patient notes that it is hard for her to note if she has a UTI based on pain because she deals with this chronically. SundayDecember 30, patient had a urinalysis that showed a probable UTI. She was placed on Macrobid which she has had before. Patient notes that she awoke yesterday morning feeling very out of it and felt it was related to the medication. She notes that she had a headache as well. She discontinued the medication and discuss this with her clinic. They gave her the option Of restarting macrobid or awaiting the culture. the culture came back today pansensitive E coli. She was instructed to restart her macrobid and is very upset about this. She is quite tearful. She notes the onset of a fever last night, persistent nausea and as well as pain in the abdomen back buttocks specially in the left flank. Related Data Home Medications ?Medication ?Instructions ?Recorded ?Confirmed cholecalciferol (vitamin D3) 10 10 mcg PO DAILY 03/17/22 01/01/25 mcg (400 unit) capsule epinephrine 0.3 mg/0.3 mL 0.3 mg IM PRN PRN 03/17/22 01/01/25 injection, auto-injector phentermine 37.5 mg tablet 37.5 mg PO DAILY 01/29/24 01/01/25 bupropion HCl 150 mg 24 hr tablet, 150 mg PO DAILY 01/01/25 01/01/25 extended release losartan 50 mg tablet 50 mg PO DAILY 01/01/25 01/01/25 Previous Rx's ?Medication ?Instructions ?Recorded sertraline 100 mg tablet 150 mg (1.5 x 100 mg) PO DAILY 11/11/24 #135 tabs Allergies Allergy/AdvReac Type Severity Reaction Status Date / Time mupirocin Allergy Intermediate skin burn Verified 01/01/25 12:35 Review of Systems Status of ROS Reports: 10 or more systems reviewed and unremarkable except as noted in History and below Const Reports: fever and fatigue ENMT Denies: nasal congestion Cardio Denies: chest pain Resp Denies: cough GI Reports: abdominal pain and nausea; Denies: vomiting Reports: painful urination, urinary frequency and urinary urgency Musculo Reports: back pain Integ/Breast Denies: rash Neuro Reports: headache Endo Reports: fatigue PFSH PFS Medical History COVID-19 ?U07.1 - COVID-19 (ICD-10) Mixed stress and urge urinary incontinence ?N39.46 - Mixed incontinence (ICD-10) BMI 39.0-39.9,adult ?Z68.39 - Body mass index [BMI] 39.0-39.9, adult (ICD-10) History of severe pre-eclampsia ?Z87.59 - Personal history of other complications of , childbirth and the puerperium (ICD-10) Normal vaginal delivery ?O80 - Encounter for full-term uncomplicated delivery (ICD-10) DELONTE (stress urinary incontinence, female) ?N39.3 - Stress incontinence (female) (male) (ICD-10) Hemorrhoids ?K64.9 - Unspecified hemorrhoids (ICD-10) Urticaria ?L50.9 - Urticaria, unspecified (ICD-10) Temporomandibular joint disorder ?M26.609 - Unspecified temporomandibular joint disorder, unspecified side (ICD-10) Hypertension (~10/2021) ?I10 - Essential (primary) hypertension (ICD-10) History of pre-eclampsia ?Z87.59 - Personal history of other complications of , childbirth and the puerperium (ICD-10) Generalized anxiety disorder ?F41.1 - Generalized anxiety disorder (ICD-10) Fluttering sensation of heart ?R00.2 - Palpitations (ICD-10) Endometriosis ?N80.9 - Endometriosis, unspecified (ICD-10) Chronic interstitial cystitis (~2008) ?N30.10 - Interstitial cystitis (chronic) without hematuria (ICD-10) Surgical History History of carpal tunnel surgery of right wrist (06/28/23) ?Z98.890 - Other specified postprocedural states (ICD-10) History of suburethral sling procedure (09/05/22) ?Z98.890 - Other specified postprocedural states (ICD-10) S/P laparoscopic hysterectomy (09/05/22) ?Z90.710 - Acquired absence of both cervix and uterus (ICD-10) S/P hemorrhoidectomy (09/05/22) ?Z98.890 - Other specified postprocedural states (ICD-10) ?Z87.19 - Personal history of other diseases of the digestive system (ICD-10) Hx of echocardiogram (2015) ?Z92.89 - Personal history of other medical treatment (ICD-10) History of tonsillectomy (~1997) ?Z90.89 - Acquired absence of other organs (ICD-10) History of sinus surgery (~08/2016) ?Z98.890 - Other specified postprocedural states (ICD-10) History of laparoscopy (05/2015) ?Z98.890 - Other specified postprocedural states (ICD-10) History of section (02/27/19) ?Z98.891 - History of uterine scar from previous surgery (ICD-10) Family History Mother Anxiety disorder Family history of breast cancer gene mutation in first degree relative High blood pressure Brain cancer Brother Asthma Maternal Grandmother Breast cancer, Onset Age: 40 Brain cancer Family/Other Breast cancer Type 1 diabetes mellitus Colon cancer Paternal Grandfather Coronary artery disease Heart disease Stroke Maternal Grandfather Coronary artery disease Heart disease Brother Heart murmur Father High blood pressure Paternal Grandmother Colon cancer Social History Narrative: , 3 kids, Nonsmoker, used to smoke 1 pack per week for 10 years Social alcohol use Does not exercise regularly Cis-gender, heterosexual woman Relationship status: to a male partner. 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 Education: 4 year college degree. Tobacco use: Former smoker, quit during her 1st in 2008. E-cigarettes: No Alcohol: Yes, 6-10 servings/month. Illicit/recreational drug use: No Concern for safety at home or work: No Desires to discuss abuse: No Exercise: No Dietary restriction: No Smoking Status: Former smoker What tobacco products do you use: cigarettes Smoking quit date/years: <= 15 years ago Do you use any of these nicotine containing products: None Second hand tobacco smoke exposure: No How often do you have a drink containing alcohol: 2-4 times a month Alcohol type: beer and hard liquor How many standard drinks containing alcohol do you have on a typical day: 3 or 4 How often do you have six or more drinks on one occasion: Never AUDIT-C Alcohol total score: 3 Non-prescribed substance use: denies use Caffeine: Yes (coffee 3 cups/day) Are you using contraception or practicing any form of control: Yes ( had vasectomy) service: No Exam Narrative: Exam Narrative: Alert and oriented. Very tearful. Nontoxic in appearance. External ears eyes nose clear. Heart with a tachycardic rate but normal rhythm. Lungs are clear bilaterally. Abdomen is soft. Pain with percussion left upper quadrant and left flank. Moving all extremities. Mentating normally. Const: Vital Signs, click to edit/add: Vital Signs - 24 hr 01/01/25 12:29 01/01/25 14:18 Temperature 100.5 F H 99.1 F Pulse Rate [Right Pulse Oximeter] 111 H 88 Respiratory Rate 18 18 Blood Pressure [Ri ght Upper Arm] 110/71 116/86 Pulse Oximetry 99 99 Oxygen Delivery Me thod Room Air Room Air Documenting provider has reviewed patient's vital signs: yes Course Course ED Course: Patient is presenting with essentially untreated UTI. Onset of fever last night. Today patient is nauseated, has elevated heart rate and temperaturebut normal blood pressure. Patient will have IV placed and labs to include CBC, lactate, blood cultures, comprehensive panel, CRP. Will also collect urinalysis here although I was able to see that she had pansensitive E coli grow from a culture on . Patient will receive 1 L of normal saline, 1 g IV Rocephin while we are waiting laboratory values. Likely complicated UTI or pyelonephritis at this time. Vital Signs Vital signs: Initial Vital Signs Temperature 100.5 F H 01/01/25 12:29 Temperature Source Temporal Artery Scan 01/01/25 12:29 Pulse Rate 111 H 01/01/25 12:29 Pulse Rhythm Regular 01/01/25 12:29 Pulse Strength 3+ Normal 01/01/25 12:29 Respiratory Rate 18 01/01/25 12:29 Blood Pressure 110/71 01/01/25 12:29 Blood Pressure Mean 84 01/01/25 12:29 Blood Pressure Position Sitting 01/01/25 12:29 Pulse Oximetry 99 01/01/25 12:29 Oxygen Delivery Method Room Air 01/01/25 12:29 Vital Signs Temperature 100.5 F H 01/01/25 12:29 Pulse Rate 111 H 01/01/25 12:29 Respiratory Rate 18 01/01/25 12:29 Blood Pressure 110/71 01/01/25 12:29 Pulse Oximetry 99 01/01/25 12:29 Oxygen Delivery Method Room Air 01/01/25 12:29 Temperature 99.1 F 01/01/25 14:18 Pulse Rate 88 01/01/25 14:18 Respiratory Rate 18 01/01/25 14:18 Blood Pressure 116/86 01/01/25 14:18 Pulse Oximetry 99 01/01/25 14:18 Oxygen Delivery Method Room Air 01/01/25 14:18 Medications Administered Medications: Discontinued Medications Generic Name Dose Route Start Last Admin Trade Name Freq PRN Reason Stop Dose Admin Sodium Chloride 1,000 mls @ 1,000 mls/hr 01/01/25 12:53 01/01/25 14:42 0.9 % Sodium Chloride 1000 Ml IV 01/01/25 13:52 Infused .Q1H JAIME Infusion Ceftriaxone Sodium 1 gm/ 100 mls @ 200 mls/hr 01/01/25 14:09 01/01/25 14:39 Sodium Chloride IVPB 01/01/25 14:10 200 mls/hr ONCE ONE Administration Ketorolac Tromethamine 15 mg 01/01/25 13:02 01/01/25 13:42 Ketorolac 15 Mg/Ml Inj IVP 01/01/25 13:03 15 mg ONCE ONE Administration MDM - Abdominal Pain MDM Narrative Medical decision making narrative: 1. Complicated UTI-likely pyelonephritis given untreated UTI now with left flank discomfort. White count normal with an elevated CRP of greater than 16. Lactate normal. Pulse has corrected with IV fluids. Treated in the ED with Rocephin 1 g IV and Toradol 15 mg IV. Patient continues to be nauseated unable to take p.o.. Zofran 4 mg IV is given. Blood cultures pending 2. Disposition -admit under the care of hospitalist, Dr Dunne. Medical Records Attestation: I reviewed the patient's medical records. Lab Data Attestation: I reviewed the patient's lab results. Labs: Lab Results 01/01/25 01/01/25 01/01/25 Range/Units 13:03 13:05 13:45 WBC 10.06 (4.50-11.00) K/uL RBC 5.11 (4.00-5.20) m/uL Hgb 13.9 (12.0-16.0) gm/dL Hct 42.0 (33.0-51.0) % MCV 82 (80-100) fL MCH 27 (26-34) pg MCHC 33 (32-36) gm/dL RDW Coeff of [place]ron[place] 13.0 (11.5-15.5) % Plt Count 195 (140-440) K/uL Neut % (Auto) 80.7 H (42.0-72.0) % Lymph % (Auto) 9.1 L (20-44) % Bartholomew % (Auto) 9.7 (0.0-11.0) % Eos % (Auto) 0.1 (0.0-7.0) % Baso % (Auto) 0.1 (0.0-3.0) % Neut # (Auto) 8.10 H (1.7-7.0) K/uL Lymph # (Auto) 0.90 (0.90-2.90) K/uL Bartholomew # (Auto) 1.00 H (0.00-0.90) K/UL Eos # (Auto) 0.01 (0.00-0.50) K/uL Baso # (Auto) 0.01 (0.00-0.30) K/uL Abs Immat Gran (auto) 0.03 (0.00-0.30) K/uL Imm/Tot Granulo (auto) 0.3 % Sodium 134 L (135-149) mmol/L Potassium 3.8 (3.6-5.1) mmol/L Chloride 100 (96-114) mmol/L Carbon Dioxide 23 (20-32) mmol/L Anion Gap 11 (7-15) mEq/L BUN 10 (5-24) mg/dL Creatinine 0.7 (0.5-1.5) mg/dL Estimated Creat Clear 107.01 Estimated GFR 114 ml/min Glucose 87 (60-115) mg/dL Lactate 0.7 (0.5-1.9) mmol/L Calcium 9.0 (8.4-10.6) mg/dL Total Bilirubin 0.8 (0.1-1.5) mg/dL AST 34 (12-35) U/L ALT 42 H (4-35) U/L Alkaline Phosphatase 70 (40-150) U/L C-Reactive Protein 16.9 H (0.5-1.0) mg/dL Total Protein 7.3 (6.0-8.3) g/dL Albumin 4.5 (3.3-5.0) g/dL Urine Color Yellow (Yellow) Urine Appearance Slightly Cloudy A (Clear) Urine pH 6.0 (5.0-8.5) Ur Specific [place] 1.020 (1.000-1.030) Urine Protein 2+ A (Negative) Urine Glucose (UA) Negative (Negative) Urine Ketones Trace A (Negative) Urine Blood 2+ A (Negative) Urine Nitrite Negative (Negative) Urine Bilirubin 2+ A (Negative) Urine Urobilinogen >=8.0 A (0.2-1.0) Ur Leukocyte Esterase 3+ A (Negative) Urine RBC 2-5 A (0-2) Urine WBC 10-25 A (0-5) Ur Squamous Epith Cells Many A (None-Few) Urine Bacteria Many A (None) Lab Acknowledgement Test Added Discharge Plan Discharge Prescriptions: No Action epinephrine 0.3 mg/0.3 mL auto-injector 0.3 mg IM PRN PRN cholecalciferol (vitamin D3) 10 mcg (400 unit) capsule 10 mcg PO DAILY phentermine 37.5 mg tablet 37.5 mg PO DAILY losartan 50 mg tablet 50 mg PO DAILY bupropion HCl 150 mg tablet extended release 24 hr 150 mg PO DAILY sertraline 100 mg tablet 150 mg PO DAILY Qty: 135 0RF Follow Up/Referrals: Celina Espinoza MD [Primary Care Provider] -
--- OUTSIDE RECORDS SUMMARY | 2025-01-01 13:04 | XMS_ITS | Encounter Summary ---
Author Organization [facility] Address [address] [place] [address] Care Team Providers Care Furnace Cleaner Name Role Phone Elsewhere, Pcp Primary Care Provider Unavailabl e Reason for Visit * Reason Comments Genetic Testing Results: Negative Encounter Details Date Type Department Care Team ([facility] st Contact Info) Description 12/16/2024 Documentation Department of Medical Genetics in [place], [place] [address] [place] [address] Shelley De Genetic Testing Results: Negative Social History Tobacco Use Types Packs/Day Years Used Date Smoking Tobacco: Every Day Passive Smoke Exposure: Never Smokeless Tobacco: Never Alcohol Use Standard Drinks/Week Comments Yes 3 (1 standard drink = 0.6 oz pur e alcohol) [facility] Utilities Answer Date Recorded In the past 12 months has [employer], [employer], oil, or water [employer] threatened to shut off services in your [...] your living situation today? I have a [facility] place to live 11/16/2024 Comments No Sex and Gender Information Value Date Recorded Sex Assigned at Female 11/16/2024 10:08 PM COUNTY PROGRAM TECHNICIAN Legal Sex Female 5:26 AM COUNTY PROGRAM TECHNICIAN Gender Identity Female 11/16/2024 10:08 PM COUNTY PROGRAM TECHNICIAN Sexual Orientation Straight 11/16/2024 10 :08 PM COUNTY PROGRAM TECHNICIAN documented as of this encounter Progress Notes [...] [facility] These results were communicated to the patient via the patient online services portal by our genetic counseling sound assistant. RESULTS Germline genetic testing included sequence [...] differential, and a clinical exam with a court crier. Individuals in this family with a first- [...] screening recommendations, suchas those made by the [employer], do remain appropriate. FOLLOW UP/RECOMMENDATIONS [...] on filedocumented in this encounter Care Teams Furnace Cleaner Relationship Specialty Start Date End Date Elsewhere, Pcp PCP - General Family Medicine 08/01/20 documented as of this encounter
--- OUTSIDE RECORDS SUMMARY | 2025-01-01 13:04 | XMS_ITS | Encounter Summary ---
Author Organization [facility] Address [address] [place] [id number] Care Team Providers Care Boatswain Mate Name Role Phone Elsewhere, Pcp Primary Care Provider Unavailabl e Encounter Details Date Type Department Care Team (Late st Contact Info) Description 11/21/2024 Results Follow-Up Breast Diagnostic Clinic in [place], [place] [address] [place] [address] Celeste Casillas M.D. [address] [place] [address] Pathology Review of Outside Material Social History Tobacco Use Types Packs/Day Years Used Date Smoking Tobacco: Every Day Passive Smoke Exposure: Never Smokeless Tobacco: Never Alcohol Use Standard Drinks/Week Comments Yes 3 (1 standard drink = 0.6 oz pur e alcohol) [facility] Utilities Answer Date Recorded In the past 12 months has [employer], gas, oil, or water [employer] threatened to shut off services in your [...] your living situation today? I have a [facility] place to live 11/16/2024 Comments No Sex and Gender Information Value Date Recorded Sex Assigned at Female 11/16/2024 10:08 PM SHEEP RANCHER Legal Sex Female 5:26 AM SHEEP RANCHER Gender Identity Female 11/16/2024 10:08 PM SHEEP RANCHER Sexual Orientation Straight 11/16/2024 10 :08 PM SHEEP RANCHER documented as of this encounter Plan of Treatment Not on file documented as of this encounter Visit Diagnoses Not on filedocumented in this encounter Care Teams Boatswain Mate Relationship Specialty Start Date End Date Elsewhere, Pcp PCP - General Family Medicine 08/01/20 documented as of this encounter
--- OUTSIDE RECORDS SUMMARY | 2025-01-01 13:04 | XMS_ITS | Clinical Summary ---
Author Organization [facility] Address [address] [place] [address] Care Team Providers Care Executive Coach Name Role Phone Jorje Goodwin MD Unavailable [phone] Celina Espinoza MD Primary Care Provider + [...] on file Legal Sex Female 5:24 AM DISTILLERY WORKER Gender Identity Not on file Sexual Orientation Not on file Obstetrics History Last Filed Vital Signs Vital Sign Reading Time Taken Comments Blood Pressure 143/94 03/08/2022 4:15 PM CDT Pulse 99 03/08/2022 4:15 PM CDT Temperature 36.7 C (98.1 F) 08/21/2017 5:34 PM DISTILLERY WORKER Respiratory Rate - - Oxygen Saturation 98% 03/08/2022 4:15 PM CDT Inhaled Oxygen Concentration - - Weight 113.9 kg (251 lb) 03/08/2022 4:15 PM CDT Height 167 cm (5' 5.75) 08/21/2017 5:34 PM DISTILLERY WORKER Body Mass Index 40.82 08/21/2017 5:34 PM DISTILLERY WORKER Plan of Treatment Health Maintenance Due Date [...] Procedure Name Priority Date/Time Associated Diagnosis Comments CHILD WELFARE DIRECTOR THIN PREP PAP SCREEN IMAGED Routine 10/11/2020 2:30 PM DISTILLERY WORKER from Last 3 Months or Most Recently Relevant to Health Maintenance Results * CHILD WELFARE DIRECTOR THIN PREP PAP SCREEN IMAGED (10/11/2020 2:30 PM DISTILLERY WORKER) Case Report Gynecologic Cytology Report Case: [id number] Authorizing Provider: Ashlee Bonner MD Collected: 10/11/2020 1430 Ordering Location: [facility] Received: 10/13/2020 1041 First Screen: Tena Casillas Specimen: CHILD WELFARE DIRECTOR ThinPrep Vial Screening, Cervical/Vaginal 10/21/2020 5:13 PM DISTILLERY WORKER [facility] [employer] [facility]- ENTRAL LAB[facility] INTERPRETATION/ RESULT NEGATIVE FOR INTRAEPITHELIAL LESION OR MALIGNANCY (NIL) (none) 10/21/2020 5:13 PM DISTILLERY WORKER [facility] ENTR[facility] LABORATORY at 1713 DISTILLERY WORKER SPECIMEN ADEQUACY Satisfactory for evaluation Endocervical component present 10/21/2020 5:13 PM DISTILLERY WORKER [facility] HPV REQUEST HPV and PAP 10/21/2020 5:13 PM DISTILLERY WORKER [facility] Date of LMP 10/10/2020 10/21/2020 5:13 PM DISTILLERY WORKER [facility] Last Pap Date 02/15/2018 10/21/2020 5:13 PM DISTILLERY WORKER [facility] Last Pap Result NIL 5:13 PM DISTILLERY WORKER [facility] Comment:negative HPV Additional Information 10/21/2020 5:13 PM DISTILLERY WORKER [facility] Comment: Interpreted at [facility] AssertID [facility] - [address], [place] [address] Automated Review Successful 10/21/2020 5:13 PM DISTILLERY WORKER [facility] [employer] [facility] ENTR[facility] Comment:Specimen processed s uccessfully by automated automobile body customizer device, ThinPrep Imaging System, [employer] ANCILLARY TESTING CHILD WELFARE DIRECTOR HPV Ordered, Please see separate report 10/21/2020 5:13 PM DISTILLERY WORKER [facility] ENTRAL LABORATORY Note The pap test [...] pre-malignant and malignant lesions. 10/21/2020 5:13 PM DISTILLERY WORKER [facility] ENTRAL LABORATORY Other (Cervical/Vagina l) 10/11/2020 2:30 PM DISTILLERY WORKER 10/13/2020 10:41 AM DISTILLERY WORKER us Ashlee Bonner MD PATHOLOGY/CYTOLOGY Final R esult [facility]AL LAB[facility] [address] [place] [address], from Last 3 Months or Most Recently Relevant to Health Maintenance Insurance [facility] MEDICAID Care Teams Executive Coach Relationship Specialty Start Date End Date Celina Espinoza MD [address] [place] [address] PCP - General Family Practice 03/08/22 Jorje Goodwin MD [address] [place] [id number] Sports Medicine 12/12/11
--- OUTSIDE RECORDS SUMMARY | 2025-01-01 13:04 | XMS_ITS | Encounter Summary ---
Author Organization [facility] Address [address] [place] [address] Care Team Providers Care Bullet Lubricating Machine Operator Name Role Phone Elsewhere, Pcp Primary Care Provider Unavailabl e Reason for Visit * Reason Onset Date Comments [facility]SM - Outside Materials 10/22/2024 Encounter Details Date Type Department Care Team (Latest Contact Info) Description 10/22/2024 Clinical Communication Breast Diagnostic Clinic in [place], [place] [address] [place] [address] Celeste Casillas M.D. [address] [place] [address] [facility] - Outside Materials Social History Tobacco Use Types Packs/Day Years Used Date Smoking Tobacco: Every Day [facility] Utilities Answer Date Recorded In the past 12 months has [employer], gas, oil, or water [employer] threatened to shut off services in your [...] your living situation today? I have a [facility] place to live 11/16/2024 Comments Unknown Sex and Gender Information Value Date Recorded Sex Assigned at Female 11/16/2024 10:08 PM MAIL CARRIER TECHNICIAN Legal Sex Female 5:26 AM MAIL CARRIER TECHNICIAN Gender Identity Female 11/16/2024 10:08 PM MAIL CARRIER TECHNICIAN Sexual Orientation Straight 11/16/2024 10 :08 PM MAIL CARRIER TECHNICIAN documented as of this encounter Miscellaneous Notes * Telephone Encounter - Era Meyer - 11/13/2024 12:13 PM MAIL CARRIER TECHNICIAN 11/13 Imaging already in review Path received and currently in review at lab CARRIER TECHNICIAN * Telephone Encounter - Era Meyer - 11/05/2024 11:25 AM MAIL CARRIER TECHNICIAN Start OSM Request: 11/03 Era fernandes OSM Request: 11/05 Faxed request to [facility] for 10/01/24 Pathology Case: [id number] Left breast They Phlebotomy Instructor 11/11 Called LVM following up on Path request CARRIER TECHNICIAN CARRIER TECHNICIAN * Telephone Encounter - Kathe Kerr C.N.A. - 10/22/2024 4:10 PM MAIL CARRIER TECHNICIAN STOP CHECK CARE EVERYWHERE BEFORE SENDING REQUEST We are waiting for, please request the items below for this patient. [facility] Breast Clinic Indication/ Reason for appt: Breast Pain, Breast Cancer Family History Bilateral Imaging Needed: Last 5 mammograms, breast ultrasounds, axillary ultrasounds (up to 3 years old). Any breast MRIs in last 3 years. Facility, City, and Date Completed at: [facility] and [place], [place] Mammogram: 09/29/2024, 02/06/2024, 06/12/2022, 11/04/2021 Ultrasound: [...] indication Facility, City, and Date Completed at: [facility] Biopsy: 09/05/2022 NURSING ONLY What are you [...] OSM TEAM ONLY Please reply to [facility] OSM. CARRIER TECHNICIAN documented in this encounter Plan of Treatment Not on file documented as of this encounter Results * Interpretation of Outside Breast Imaging (10/24/2024 9:02 AM MAIL CARRIER TECHNICIAN) Anatomical Region Laterality Modality Breast, Breast Imaging RST L OS, Breast Imaging ARZ LOS, Breast Imaging FLA LOS, Other N/A Mammography Impressions 11/05/2024 8:15 AM MAIL CARRIER TECHNICIAN 1. No mammographic or sonographic findings of malignancy in either breast. 2. Recommend annual screening mammography and clinical management of the breast pain. Narrative 11/05/2024 8:15 AM MAIL CARRIER TECHNICIAN EXAM: INTERPRETATION OF OUTSIDE BREAST IMAGING, INTERPRETATION [...] History documented in this encounter Care Teams Bullet Lubricating Machine Operator Relationship Specialty Start Date End Date Elsewhere, Pcp PCP - General Family Medicine 08/01/20 documented as of this encounter
--- OUTSIDE RECORDS SUMMARY | 2025-01-01 13:04 | XMS_ITS | Encounter Summary ---
Author Organization [facility] Address [address] [place] [address] Care Team Providers Care Vaccinator Name Role Phone Elsewhere, Pcp Primary Care Provider Unavailabl e Encounter Details Date Type Department Care Team (Late st Contact Info) Description 11/27/2024 8:15 AM CDT Lab RST RO LMP [address] [place] [phone] Nanci Pena APRN, C.N.P., D.N.P., M.S. [address] [place] [phone] Cancer Breast Family History; Cancer Colon Family History; Cancer Brain Family History; Cancer Prostate Family History Social History Tobacco Use Types Packs/Day Years Used Date Smoking Tobacco: Every Day Passive Smoke Exposure: Never Smokeless Tobacco: Never Alcohol Use Standard Drinks/Week Comments Yes 3 (1 standard drink = 0.6 oz pur e alcohol) [facility] Utilities Answer Date Recorded In the past 12 months has [employer], gas, oil, or water company threatened to [...] your living situation today? [facility] a [facility] to live 11/16/2024 Comments No Sex and Gender Information Value Date Recorded Sex Assigned at Female 11/16/2024 10:08 PM HAZMAT TECHNICIAN Legal Sex Female 5:26 AM HAZMAT TECHNICIAN Gender Identity Female 11/16/2024 10:08 PM HAZMAT TECHNICIAN Sexual Orientation Straight 11/16/2024 10 :08 PM HAZMAT TECHNICIAN documented as of this encounter Plan of Treatment Not on file documented as of this encounter Procedures Procedure Name Priority Date/Time Associated Diagnosis Comments [facility] [employer] Routine 11/26/2024 3 :07 PM CDT documented in this encounter Results * [facility] [employer] (11/26/2024 3:07 PM CDT) Test Name Jerrica Custom Panel 12/03/2024 9:26 AM CDT AMBR Result SEE COMMENT 12/15/2024 9:32 AM CDT AMBR Comment: For final report, select Lab-Send Out Lab Results hyperlink below. 11/26/2024 3:07 PM CDT 12/03/2024 9:26 AM CDT Nanci Pena APRN, C.N.P., D.N.P., M.S. LAB MISC ORDERABLES Final Result [employer] [address] [place] [address], [facility] AMBR [employer] [address] [place] [address] documented in this encounter Visit Diagnoses Diagnosis Cancer Breast Family History Cancer Colon Family History Cancer Brain Family History Cancer Prostate Family History documented in this encounter Care Teams Vaccinator Relationship Specialty Start Date End Date Elsewhere, Pcp PCP - General Family Medicine 08/01/20 documented as of this encounter
--- OUTSIDE RECORDS SUMMARY | 2025-01-01 13:04 | XMS_ITS | Encounter Summary ---
Author Organization [facility] Address [address] [place] [address] Care Team Providers Care Leather Sprayer Name Role Phone Elsewhere, Pcp Primary Care Provider Unavailabl e Reason for Referral * Outpatient (Routine) - Closed Specialty Diagnoses / Procedures Referred By Cecelia garcia Referred To Contact Clinical Genomics Diagnoses Cancer Breast Family History Celeste Casillas M.D. [address] [place] [address] Phone: tel: fax: [facility] Referral ID Status Reason Start Date Expiration Date Visits Re quested Visits Authorized [id number] Closed 11/17/2024 05/19/2026 1 1 CONTROL CHAIN BUILDER Reason for Visit * Reason Comments Consult Discomfort right darwin ast * Appointment Request (Routine) - Closed Specialty Diagnoses / Procedures Referred By Cecelia garcia Referred To Contact Breast Clinic Diagnoses Pain Breast Cancer Breast Family History Veda Brown M.D. [address] [place] [address] Phone: tel: fax: Referral ID Status Reason Start Date Expiration Date Visits Re quested Visits Authorized [id number] Closed 10/17/2024 01/17/2026 1 1 Encounter Details Date Type Department Care Team (Latest Contact Info) Description 11/17/2024 10:30 AM LOOM CONTROL CHAIN BUILDER Comprehensive Visit Breast Diagnostic Clinic in [place], [place] [address] [place] [address] Celeste Casillas M.D. [address] [place] [address] Cancer Breast Family History (Primary Dx); Mammographic Heterogeneous Density, Bilateral Breasts Social History Tobacco Use Types Packs/Day Years Used Date Smoking Tobacco: Every Day Passive Smoke Exposure: Never Smokeless Tobacco: Never Alcohol Use Standard Drinks/Week Comments Yes 3 (1 standard drink = 0.6 oz pur e alcohol) [facility] Utilities Answer Date Recorded In the past 12 months has e [employer], gas, oil, or water [employer] threatened to shut off services in your [...] your living situation today? [facility] place to live 11/16/2024 Comments No Sex and Gender Information Value Date Recorded Sex Assigned at Female 11/16/2024 10:08 PM LOOM CONTROL CHAIN BUILDER Legal Sex Female 5:26 AM LOOM CONTROL CHAIN BUILDER Gender Identity Female 11/16/2024 10:08 PM LOOM CONTROL CHAIN BUILDER Sexual Orientation Straight 11/16/2024 10 :08 PM LOOM CONTROL CHAIN BUILDER documented as of this encounter Last Filed Vital Signs Vital Sign Reading Time Taken Comments Blood Pressure 138/87 11/17/2024 10:26 AM LOOM CONTROL CHAIN BUILDER Pulse 94 11/17/2024 10:26 AM LOOM CONTROL CHAIN BUILDER Temperature - - Respiratory Rate - - Oxygen Saturation - - Inhaled Oxygen Concentration - - Weight 92.8 kg (204 lb 9.4 oz) 11/17/2024 10:26 AM LOOM CONTROL CHAIN BUILDER Height 169.2 cm (5' 6.61) 11/17/2024 10:26 AM C Body Mass Index 32.42 11/17/2024 10:26 AM LOOM CONTROL CHAIN BUILDER documented in this encounter Consult Notes * Celeste Casillas M.D. - 11/17/2024 10:30 AM CST SUBJECTIVE CHIEF COMPLAINT / REASON FOR VISIT Family history of breast cancer History of Present Illness Ms. Dick is a very pleasant 39 y.o. woman from [facility] [phone] who presents today forfurther evaluation and recommendations [...] at very high risk based on the [place] [employer] guidelines for MRI screening. MBI [...] Allergen Reactions Mupirocin Rash In antibiotic ointment CONTROL CHAIN BUILDER documented in this encounter Plan of Treatment Scheduled Referrals Name Type Priority Associated Diagnoses Orde r Schedule Clinical Genomics - Cancer genetics consult (clinic) Outpatient Referral Routine Cancer Breast Family History Expected: 11/17/2024, Expires: 02/17/2026 documented as of this encounter Visit Diagnoses Diagnosis Cancer Breast Family History- Primary Mammographic Heterogeneous Density, Bilateral Breasts documented in this encounter Care Teams Leather Sprayer Relationship Specialty Start Date End Date Elsewhere, Pcp PCP - General Family Medicine 08/01/20 documented as of this encounter
--- OUTSIDE RECORDS SUMMARY | 2025-01-01 13:04 | XMS_ITS | Encounter Summary ---
Author Organization [facility] Address [address] [place] [address] Care Team Providers Care Cougar Hunter Name Role Phone Elsewhere, Pcp Primary Care Provider Unavailabl e Reason for Visit * Outpatient (Routine) - Closed Specialty Diagnoses / Procedures Referred By Cecelia garcia Referred To Contact Clinical Genomics Diagnoses Cancer Breast Family History Celeste Casillas M.D. [address] [place] [phone] Phone: tel: fax: [facility] Referral ID Status Reason Start Date Expiration Date Visits Re quested Visits Authorized [id number] Closed 11/17/2024 05/19/2026 1 1 Encounter Details Date Type Department Care Team ([facility] st Contact Info) Description 11/18/2024 10:30 AM [facility] Telemedicine Department of Medical Genetics in [place], [place] [address] [place] [phone] Celeste Casillas M.D. [address] [place] [phone] Vivian Estes M.S., [facility] [address] [place] [phone] Cancer Colon Family History (Primary Dx); Cancer Breast Family History; Cancer Brain Family History; Cancer Prostate Family History Social History Tobacco Use Types Packs/Day Years Used Date Smoking Tobacco: Every Day Passive Smoke Exposure: Never Smokeless Tobacco: Never Alcohol Use Standard Drinks/Week Comments Yes 3 (1 standard drink = 0.6 oz pur e alcohol) [facility] Utilities Answer Date Recorded In the past [...] your living situation today? [facility] have a [facility] place to live 11/16/2024 Comments No Sex and Gender Information Value Date Recorded Sex Assigned at Female 11/16/2024 10:08 PM MARINE FIREFIGHTER Legal Sex Female 5:26 AM MARINE FIREFIGHTER Gender Identity Female 11/16/2024 10:08 PM MARINE FIREFIGHTER Sexual Orientation Straight 11/16/2024 10 :08 PM MARINE FIREFIGHTER documented as of this encounter Consult Notes * Vivian Estes M.S., [facility] - 11/18/2024 10:30 AM CST Images from [...] by Vivian Estes M.S., MIKEY in the [facility] to the patient at work. FAMILY HISTORY A detailed family history was obtained from the patient and a pedigree was constructed. The pedigree will be saved as a scanned document and available for viewing under the Media tab of [employer]. Our risk assessment is based upon medical and family history information as provided by the patient, and may change in the future should new information be obtained. Pedigree 11/18/2024 taken by Vivian Estes MS, [facility] Relevant History: Mother had a brain tumor at age 52. Has had multiple colon polyps. No other history of cancer but underwent risk-reducing mastectomies at age 45. Also underwent hysterectomy around age 35 and bilateral oophorectomy at age 57. Underwent genetic testing of likely only BRCA1 and BRCA2 in [phone]. Did additional genetic testing for brain tumors [...] her 30s The patient's maternal ancestry is [place]; the patient's paternal ancestry is English. There is no reported consanguinity. IMPRESSION/REPORT/PLAN PATIENT [...] to have high-grade prostate cancer (metastatic OR Ishaan score over 7), rare cancers (like male [...] elected to pursue the CancerNext-Expanded panel through [facility]. Vangie will complete a blood draw for cryopreservation in [place] in the next few days. Testing will [...] differential, and a clinical exam with a industrial commercial groundskeeper. Individuals in this family with a first- [...] screening recommendations, suchas those made by the [place] [employer], do remain appropriate. It was a pleasure to meet Vangie. Vangie is certainly welcome to contact us with any additionalquestions. PATIENT EDUCATION: All of the above was discussed in detail with the patient who verbalized understanding. The patient's questions were answered. Total time: 44 minutes NE FIREFIGHTER documented in this encounter Plan of Treatment Scheduled Orders Name Type Priority Associated Diagnoses Orde r Schedule [id number] [facility] Custom Panel - Miscellaneous Test Lab Add-On [...] is not a DNA banking service. If assisted, guaranteed specimen storage is required, DNA banking [...] D.N.P., M.S. LAB GENETIC TESTING Final Result [facility] [address] [place] [address], [facility] DTL [address] [place] [address] documented in this encounter Visit Diagnoses Diagnosis Cancer Colon Family History- Primary Cancer Breast Family History Cancer Brain Family History Cancer Prostate Family History documented in this encounter Care Teams Cougar Hunter Relationship Specialty Start Date End Date Elsewhere, Pcp PCP - General Family Medicine 08/01/20 documented as of this encounter
--- OUTSIDE RECORDS SUMMARY | 2025-01-01 13:04 | XMS_ITS | Encounter Summary ---
Author Organization [facility] Address [address] [place] [address] Care Team Providers Care Crushing Mill Operator Name Role Phone Elsewhere, Pcp Primary Care Provider Unavailabl e Encounter Details Date Type Department Care Team (Late st Contact Info) Description 12/16/2024 Results Follow-Up Department of Medical Genetics in [place], [place] [address] [place] [address] [facility] Genetics Social History Tobacco Use Types Packs/Day Years Used Date Smoking Tobacco: Every Day Passive Smoke Exposure: Never Smokeless Tobacco: Never Alcohol Use Standard Drinks/Week Comments Yes 3 (1 standard drink = 0.6 oz pur e alcohol) [facility] Utilities Answer Date Recorded In the past 12 months has [facility] [employer], gas, oil, or water [employer] threatened to shut off services in your [...] your living situation today? I have a [facility] place to live 11/16/2024 Comments No Sex and Gender Information Value Date Recorded Sex Assigned at Female 11/16/2024 10:08 PM CERTIFIED DIETARY MANAGER Legal Sex Female 5:26 AM CERTIFIED DIETARY MANAGER Gender Identity Female 11/16/2024 10:08 PM CERTIFIED DIETARY MANAGER Sexual Orientation Straight 11/16/2024 10 :08 PM CERTIFIED DIETARY MANAGER documented as of this encounter Plan of Treatment Not on file documented as of this encounter Visit Diagnoses Not on filedocumented in this encounter Care Teams Crushing Mill Operator Relationship Specialty Start Date End Date Elsewhere, Pcp PCP - General Family Medicine 08/01/20 documented as of this encounter
--- OUTSIDE RECORDS SUMMARY | 2025-01-01 13:04 | XMS_ITS | Clinical Summary ---
Author Organization [facility] Address [address] , [address] [place] [address] Phone Care Team Providers Care Financial Administration Officer Name Role Phone [facility] Unavailable Unava ilable Conditions or Problems Problem Name Problem Code Onset Date Status Entry Date Provider Comment Standard Description Annotate Hand numbness 825912681 (SNOMED CT) Active Dmitry Warner MD Numbness of hand Elbow pain, unspecified 78839363 (SNOMED CT) Active Dmitry Warner MD Pain of elbow region Median neuropathy, right 086445078 (SNOMED CT) Active Dmitry Warner MD Median [...] Procedures Code Procedure Name Date Entry Date CPT-02641 Nerve Conduction 13 or more studies 05/24 CPT-26697 EMG with NCS (5+ muscles) - 1 limb 05/24 Vital Signs No information available. Immunizations No information available. Advance Directives No information available.
--- OUTSIDE RECORDS SUMMARY | 2025-01-01 13:04 | XMS_ITS | Encounter Summary ---
Author Organization [facility] Address [address] [place] [address] Care Team Providers Care Administrative Underwriter Name Role Phone Elsewhere, Pcp Primary Care Provider Unavailabl e Encounter Details Date Type Department Care Team (Late st Contact Info) Description 11/12/2024 Orders Only Breast Diagnostic Clinic in [place], [place] [address] [place] [address] Celeste Casillas M.D. [address] [place] [address] Other Skin Changes (Primary Dx) Social History Tobacco Use Types Packs/Day Years Used Date Smoking Tobacco: Every Day [facility] Utilities Answer Date Recorded In the [...] your living situation today? I have a [facility] place to live 11/16/2024 Comments Unknown Sex and Gender Information Value Date Recorded Sex Assigned at Female 11/16/2024 10:08 PM ANIMAL HUMANE AGENT SUPERVISOR Legal Sex Female 5:26 AM ANIMAL HUMANE AGENT SUPERVISOR Gender Identity Female 11/16/2024 10:08 PM ANIMAL HUMANE AGENT SUPERVISOR Sexual Orientation Straight 11/16/2024 10 :08 PM ANIMAL HUMANE AGENT SUPERVISOR documented as of this encounter Plan of Treatment Not on file documented as of this encounter Results * Pathology Review of Outside Material (10/01/2024 10:45 AM ANIMAL HUMANE AGENT SUPERVISOR) 11/20/2024 3:33 PM ANIMAL HUMANE AGENT SUPERVISOR PDRM Report electronically signed by Hollie Beltran M.D. I verify that I have examined all relevant slides/materials for the specimen(s) and rendered or confirmed the diagnosis. A comprehensive consult with review of records that included imaging was performed to assist in the diagnostic assessment of the case. 11/20/2024 3:33 PM ANIMAL HUMANE AGENT SUPERVISOR PDRM Material Received A. [id number]: Left breast 7 stained slides 11/20/2024 3:33 PM ANIMAL HUMANE AGENT SUPERVISOR PDRM Interpretation FINAL DIAGNOSIS A. Left breast, [id number], 10/01/2024: Skin with focal foreign-body type granulomatous inflammation COMMENT Within the mid-dermis is a collection of foreign-body type granulomas. No polarizable material is identified. Clinical pathologic correlation is recommended. Digital imaging was used in the diagnostic assessment of this case. 11/20/2024 3:33 PM ANIMAL HUMANE AGENT SUPERVISOR PDRM Varies 10/01/2024 10:4 5 AM ANIMAL HUMANE AGENT SUPERVISOR 11/12/2024 5:46 PM ANIMAL HUMANE AGENT SUPERVISOR us Celeste Isaac M.D. LAB SURG PATH ORDERAB LES Final Result [facility] [address] [place] [address], [facility] PDRM [address] [place] [address] documented in this encounter Visit Diagnoses Diagnosis Other Skin Changes- Primary documented in this encounter Care Teams Administrative Underwriter Relationship Specialty Start Date End Date Elsewhere, Pcp PCP - General Family Medicine 08/01/20 documented as of this encounter
--- OUTSIDE RECORDS SUMMARY | 2025-01-01 13:04 | XMS_ITS | Encounter Summary ---
Author Organization [facility] Address [address] [place] [address] Care Team Providers Care Glass Toughening Operator Name Role Phone Elsewhere, Pcp Primary Care Provider Unavailabl e Reason for Visit * Reason Onset Date Comments Ambry:KR 11/18/2024 Encounter Details Date Type Department Care Team (Late st Contact Info) Description 11/18/2024 Clinical Communication Department of Medical Genetics in [place], [place] [address] [place] [address] Vivian Estes M.S., [facility] [address] [place] [phone] Ambry:KR Social History Tobacco Use Types Packs/Day Years Used Date Smoking Tobacco: Every Day Passive Smoke Exposure: Never Smokeless Tobacco: Never Alcohol Use Standard Drinks/Week Comments Yes 3 (1 standard drink = 0.6 oz pur e alcohol) [facility] Utilities Answer Date Recorded In the past 12 months has [employer], gas, oil, or water [employer] threatened to shut off services in your [...] your living situation today? I have a [facility] place to live 11/16/2024 Comments No Sex and Gender Information Value Date Recorded Sex Assigned at Female 11/16/2024 10:08 PM ART THERAPY CERTIFIED SUPERVISOR Legal Sex Female 5:26 AM ART THERAPY CERTIFIED SUPERVISOR Gender Identity Female 11/16/2024 10:08 PM ART THERAPY CERTIFIED SUPERVISOR Sexual Orientation Straight 11/16/2024 10 :08 PM ART THERAPY CERTIFIED SUPERVISOR documented as of this encounter Miscellaneous Notes * Telephone Encounter - Malathi Khoury - 11/18/2024 3:04 PM CST Date: 11/18/24 Lab: [facility] Test: non-RNA Sample: Testing off of cryo Provider: Vivian Estes CGC Insurance: Commercial Note: Cryo to be collected at 11/25 4:10 pm blood draw at [facility]. POM sent to patient to confirm these details. After BD, we will request cryo pull for testing. THERAPY CERTIFIED SUPERVISOR documented in this encounter Plan of Treatment Not on file documented as of this encounter Visit Diagnoses Not on filedocumented in this encounter Care Teams Glass Toughening Operator Relationship Specialty Start Date End Date Elsewhere, Pcp PCP - General Family Medicine 08/01/20 documented as of this encounter
--- OUTSIDE RECORDS SUMMARY | 2025-01-01 13:04 | XMS_ITS | Encounter Summary ---
Author Organization [facility] Address [address] [place] [address] Care Team Providers Care Street Light Servicer Helper Name Role Phone Elsewhere, Pcp Primary Care Provider Unavailabl e Encounter Details Date Type Department Care Team (Late st Contact Info) Description 11/26/2024 2:58 PM CDT - 11/26/2024 11:59 PM CDT Hospital Encounter Department of Laboratory Medicine in [address] [phone] Nanci Pena APRN, C.N.P., D.N.P., M.S. [address] [place] [phone] Cancer Breast Family History; Cancer Colon Family History; Cancer Brain Family History; Cancer Prostate Family History Discharge Disposition: Home or Self Care Social History Tobacco Use Types Packs/Day Years Used Date Smoking Tobacco: Every Day Passive Smoke Exposure: Never Smokeless Tobacco: Never Alcohol Use Standard Drinks/Week Comments Yes 3 (1 standard drink = 0.6 oz pur e alcohol) [facility] Utilities Answer Date Recorded In the past 12 [address], gas, oil, or water company threatened to [...] your living situation today? [facility] a [facility] live 11/16/2024 Comments No Sex and Gender Information Value Date Recorded Sex Assigned at Female 11/16/2024 10:08 PM CADMIUM BURNER Legal Sex Female 5:26 AM CADMIUM BURNER Gender Identity Female 11/16/2024 10:08 PM CADMIUM BURNER Sexual Orientation Straight 11/16/2024 10 :08 PM CADMIUM BURNER documented as of this encounter Medications at [...] is not a DNA banking service. If [facility], guaranteed specimen storage is required, DNA banking [...] D.N.P., M.S. LAB GENETIC TESTING Final Result [facility] [address] [place] [address], [facility] DTL [address] [place] [address] documented in this encounter Visit Diagnoses Diagnosis Cancer Breast Family History Cancer Colon Family History Cancer Brain Family History Cancer Prostate Family History documented in this encounter Care Teams Street Light Servicer Helper Relationship Specialty Start Date End Date Elsewhere, Pcp PCP - General Family Medicine 08/01/20 documented as of this encounter
--- OUTSIDE RECORDS SUMMARY | 2025-01-01 13:04 | XMS_ITS | Clinical Summary ---
Author Organization [facility] Address [address] [place] [address] Care Team Providers Care Salvage Engineering Technician Name Role Phone Elsewhere, Pcp Primary Care Provider Unavailabl e Source Comments Patient records contain information from all sites at [facility]. For routine questions regarding patient records, call [phone] during business hours, M-F 8:00 AM - 5:00 PM Central Time. Record requests for emergency care only can be directed to [phone] at any time.[facility] Allergies Active Allergy Reactions Criticality Noted [...] Results Follow-Up Department of Medical Genetics in [place], [place] [address] [place] [address] Shelley De 12/16/2024 Documentation Department of Medical Genetics in [place], [place] [address] [place] [phone] SantinoShelley Prabhu Genetic Testing Results: Negative 11/27/2024 8:15 AM CDT Lab RST RO LMP [address] [place] [phone] Nanci Pena APRN, C.N.P., Corina.N.P., M.S. Cancer Breast Family History; Cancer Colon Family History; Cancer Brain Family History; Cancer Prostate Family History 11/26/2024 2:58 PM CDT - 11/26/2024 11:59 PM CDT Hospital Encounter Department of Laboratory Medicine in [address] [phone] Nanci Pena APRN, C.N.P., Corina.N.P., M.S. Cancer Breast Family History; Cancer Colon Family History; Cancer Brain Family History; Cancer Prostate Family History Discharge Disposition: Home or Self Care 11/21/2024 Results Follow-Up [facility] in [place], [place] [address] [place] [phone] Celeste Casillas M.D. Pathology Review of Outside Material 11/18/2024 10:30 AM INVENTORY AUDITOR Telemedicine Department of Medical Genetics in [place], [place] [address] [place] [phone] Celeste Casillas M.D. Rogen, Kara R MAdiel, [facility] Cancer Colon Family History (Primary Dx); Cancer Breast Family History; Cancer Brain Family History; Cancer Prostate Family History 11/18/2024 Clinical Communication Department of Medical Genetics in [place], [place] [address] [place] [phone] Vivian Estes MAdiel, CGC Ambry:KR 11/17/2024 10:30 AM INVENTORY AUDITOR Comprehensive Visit Breast Diagnostic Clinic in [place], [place] [address] [place] [phone] Celeste Casillas M.D. Cancer Breast Family History (Primary Dx); Mammographic Heterogeneous Density, Bilateral Breasts 11/14/2024 3:30 PM INVENTORY AUDITOR Clinical Communication Virtual Review in [place], [place] [address] [place] [address] Pre-visit Intake 11/12/2024 3:30 PM INVENTORY AUDITOR Lab RST RO LMP [address] [place] [phone] Celeste Casillas M.D. Other Skin Changes 11/12/2024 Orders Only Breast Diagnostic Clinic in [place], [place] [address] [place] [phone] Celeste Casillas M.D. Other Skin Changes (Primary Dx) 10/24/2024 9:25 AM INVENTORY AUDITOR Ancillary Procedure Department of Radiology in [place], [place] [address] [place] [phone] Celeste Casillas M.D. Pain Breast; Cancer Breast Family History 10/24/2024 8:35 AM INVENTORY AUDITOR Ancillary Procedure Department of Radiology in [place], [place] [address] [place] [phone] Celeste Casillas M.D. Pain Breast; Cancer Breast Family History 10/22/2024 Clinical Communication [facility] in [place], [place] [address] [place] [phone] Celeste Casillas M.D. [facility]SM - Outside Materials [...] 0.6 oz pur e alcohol) [facility] [employer] Answer Date Recorded In the past 12 months has e [employer], gas, oil, or water [employer] threatened to shut off services in your [...] your living situation today? I have a [facility] place to live 11/16/2024 Comments No Sex and Gender Information Value Date Recorded Sex Assigned at Female 11/16/2024 10:08 PM INVENTORY AUDITOR Legal Sex Female 5:26 AM INVENTORY AUDITOR Gender Identity Female 11/16/2024 10:08 PM INVENTORY AUDITOR Sexual Orientation Straight 11/16/2024 10 :08 PM INVENTORY AUDITOR Last Filed Vital Signs Vital Sign Reading Time Taken Comments Blood Pressure 138/87 11/17/2024 10:26 AM INVENTORY AUDITOR Pulse 94 11/17/2024 10:26 AM INVENTORY AUDITOR Temperature - - Respiratory Rate - - Oxygen Saturation - - Inhaled Oxygen Concentration - - Weight 92.8 kg (204 lb 9.4 oz) 11/17/2024 10:26 AM INVENTORY AUDITOR Height 169.2 cm (5' 6.61) 11/17/2024 10:[address] Body Mass Index 32.42 11/17/2024 10:26 AM INVENTORY AUDITOR Plan of Treatment Health Maintenance Due Date [...] this topic Medical Devices Implanted Type Area Wet End Operator Device Identifier Shelf Expiration Date Model / Serial / Lot Bladder Sling Mesh or Patch Bladder Procedures Procedure Name Priority Date/Time Associated Diagnosis Comments [facility] Routine 11/26/2024 3 :07 PM CDT CRYOPRESERVATION FOR MOLEC STUDIES Routine 11/26/2024 3:07 PM CDT Cancer Breast Family History Cancer Colon Family History Cancer Brain Family History Cancer Prostate Family History INTERPRETATION OF OUTSIDE BREAST IMAGING RAD - Routine (most inpatients and all outpatients) 10/24/2024 9:25 AM INVENTORY AUDITOR Pain Breast Cancer Breast Family History INTERPRETATION OF OUTSIDE BREAST IMAGING RAD - Routine (most inpatients and all outpatients) 10/24/2024 9:02 AM INVENTORY AUDITOR Pain Breast Cancer Breast Family History PATHOLOGY ENGINE REPAIR SUPERVISOR CYTOLOGY Routine 7:46 PM INVENTORY AUDITOR from Last 3 Months or Most Recently Relevant to Health Maintenance Results * [facility] (11/26/2024 3:07 PM CDT) Test Name Jerrica Custom Panel 12/03/2024 9:26 AM CDT AMBR Result SEE COMMENT 12/15/2024 9:32 AM CDT AMBR Comment: For final report, select Lab-Send Out Lab Results hyperlink below. 11/26/2024 3:07 PM CDT 12/03/2024 9:26 AM CDT Nanci Pena APRN, C.N.P., D.N.P., M.S. LAB [facility] ORDERABLES Final Result [facility] [employer] [address] [place] [address], [facility] AMBR [facility] [address] [place] [address] * Cryopreservation for Molecular Genetic Studies (11/26/2024 [...] is not a DNA banking service. If oil heaterman, guaranteed specimen storage is required, DNA banking [...] LAB GENETIC TESTING Final Result [facility] [address] [place] [address], [facility] DTL [address] [place] [address] * Interpretation of Outside Breast Imaging (10/24/2024 9:25 AM INVENTORY AUDITOR) Only the most recent of2 resultswithin the time period is included. Anatomical Region Laterality Modality Breast, Breast Imaging RST L OS, Breast Imaging ARZ LOS, Breast Imaging FLA LOS, Other N/A Mammography Impressions 11/05/2024 8:15 AM INVENTORY AUDITOR 1. No mammographic or sonographic findings of malignancy in either breast. 2. Recommend annual screening mammography and clinical management of the breast pain. Narrative 11/05/2024 8:15 AM INVENTORY AUDITOR EXAM: INTERPRETATION OF OUTSIDE BREAST IMAGING, INTERPRETATION [...] BI PROCEDURES Fin al Result * Pathology ENGINE REPAIR SUPERVISOR Cytology (09/30/2003 7:46 PM INVENTORY AUDITOR) 09/30/2003 7:46 PM INVENTORY AUDITOR 09/30/2003 7:46 PM INVENTORY AUDITOR Narrative [facility] - 09/30/2003 7:46 PM INVENTORY AUDITOR 09/29/2003 Cytology Gynecological ([id number]) Requested By: Matilde Cabrera M.D. [phone] DIAGNOSIS: A. Cervical/Endocervical Smear Screen: Satisfactory for evaluation. Negative for intraepithelial lesion or malignancy. 10/01/2003 MATTIE Morales (ASCP) Elizabeth Teixeira M.D. [phone] SPECIMEN DESCRIPTION: Procedure Note 12/08/2017 09/29/2003 Cytology Gynecological ([id number]) Requested By: Matilde Cabrera M.D. [phone] DIAGNOSIS: A. Cervical/Endocervical Smear Screen: Satisfactory for evaluation. Negative for intraepithelial lesion or malignancy. 10/01/2003 Marcie Peres , MATTIE (ASCP) Elizabeth Teixeira M.D. [phone] SPECIMEN DESCRIPTION: us Historical Provider LAB PAP COPATH ORDERABLES Fi nal Result [facility] [address] [place] [id number], [facility] from Last 3 Months or Most Recently Relevant to Health Maintenance Insurance [facility] Care Teams Salvage Engineering Technician Relationship Specialty Start Date End Date Elsewhere, Pcp PCP - General Family Medicine 08/01/20
[2025-01-01 13:17] LABS: Appearance Urine Slightly Cloudy (Clear); Bilirubin Urine 2+ (Negative); Blood Urine 2+ (Negative); Color Urine Yellow (Yellow); Glucose Urine Negative (Negative); Ketones Urine Trace (Negative); Leukocyte Esterase Urine 3+ (Negative); Nitrite Urine Negative (Negative); Protein Urine 2+ (Negative); Urobilinogen Urine >=8.0 (0.2-1.0)
[2025-01-01 13:21] LABS: Bacteria Urine Many; Squamous Epithelial Cell Urine Many (None-Few)
[2025-01-01] MEDS: KETOROLAC 15 MG/ML inj IVP (13:42)
[2025-01-01] MEDS: 0.9 % SODIUM CHLORIDE 1000 ml 1,000 ML IV ×3 (13:42→17:35)
[2025-01-01 13:55] LABS: Lactate* 0.7 mmol/L (0.5-1.9)
[2025-01-01 13:58] LABS: Basophils Absolute Auto 0.01 K/uL (0.00-0.30); Basophils Percent Auto 0.1 % (0.0-3.0); Eosinophils Absolute Auto 0.01 K/uL (0.00-0.50); Eosinophils Percent Auto 0.1 % (0.0-7.0); Hemoglobin* 13.9 gm/dL (12.0-16.0); Immature Granulocytes Abs Auto 0.03 K/uL (0.00-0.30); Immature Granulocytes Pct Auto 0.3 %; Lymphocytes Percent Auto 9.1 % (20-44); Mean Corpuscular HGB Conc 33 gm/dL (32-36); Mean Corpuscular Hemoglobin 27 pg (26-34); Mean Corpuscular Volume 82 fL (80-100); Monocytes Percent Auto 9.7 % (0.0-11.0); Neutrophils Percent Auto 80.7 % (42.0-72.0); Platelet Count* 195 K/uL (140-440); Red Blood Count 5.11 m/uL (4.00-5.20); White Blood Count* 10.06 K/uL (4.50-11.00)
[2025-01-01 14:04] LABS: Slide Review Reflex No
[2025-01-01 14:15] LABS: Albumin* 4.5 g/dL (3.3-5.0); Chloride* 100 mmol/L (96-114); Potassium* 3.8 mmol/L (3.6-5.1); Sodium* 134 mmol/L (135-149)
[2025-01-01 14:17] LABS: Blood Urea Nitrogen* 10 mg/dL (5-24); Creatinine* 0.7 mg/dL (0.5-1.5); Est. Creatinine Clearance* 107.01; Estimated Glomerular Filt Rate 114 ml/min
[2025-01-01 14:18] LABS: Alanine Aminotransferase* 42 U/L (4-35); Alkaline Phosphatase* 70 U/L (40-150); Anion Gap 11 mEq/L (7-15); Aspartate Amino Transferase* 34 U/L (12-35); Bilirubin Total* 0.8 mg/dL (0.1-1.5); Carbon Dioxide* 23 mmol/L (20-32); Glucose* 87 mg/dL (60-115); Total Protein* 7.3 g/dL (6.0-8.3)
[2025-01-01 14:32] LABS: C Reactive Protein* 16.9 mg/dL (0.5-1.0)
[2025-01-01] MEDS: cefTRIAXone 1 GM in 0.9 % SODIUM CHLORIDE Mini-bag 100 ML IVPB (14:39)
[2025-01-01] MEDS: ONDANSETRON 2 MG/ML inj 4 MG IVP ×2 (15:19→19:32)
--- NOTE | 2025-01-01 16:29 | P.IMHP_ITS ---
Assessment and Plan Assessment and plan (1) Pyelonephritis: Problem comment: - with associated fever, body aches, headache, nausea, anorexia - treated with piperacillin/tazobactam, scheduled Tylenol, IV fluids - urine culture + for pansensitive E coli on 12/30/2024 - repeat urine culture and blood cultures from 01/01/2025 obtained and pending Status: Acute (2) Anaphylaxis: Problem comment: - History of anaphylaxis and hives twice relating to stress - Reportedly allergy testing was negative - on admission 01/01, no evidence of urticaria - takes Zyrtec 10mg BID, will continue during stay Status: Acute Plan - per above - requires inpatient level of care management given fever, tachycardia, nausea, severe symptoms, + pyelonephritis clinically and radiographically Hospitalist- H&P: HPI History of Present Illness Date Seen: 01/01/25 Chief complaint: Has a UTI- not feeling well Narrative: Vangie Dick is a 39 year old female who presented to the ER today for nausea, fever, and achiness in the setting of known UTI. History of recurrent UTIs + chronic dysuria, worsening symptoms + back pain that started on Sunday, 12/28. Culture collected 12/30 was + for pansensitive E Coli, started on Macrobid. Has had nausea and headache, unable to keep medication down. Hasn't eaten much at all in the past 3-4 days. Today, felt worse and had a fever, so presented to ER. ER Course and Findings: - T of 100.5, WBC 10 with 80% PMNs - CRP 16.9, ALT 42, Na 134, + UA - blood and urine cultures pending - received Ceftriaxone, Toradol, IVF boluses, Zofran Upon arrival to the floor, Vangie had a temperature of 101.9 CT A/P obtained, findings consistent with bilateral pyelonephritis without abscess or obstructing stones. Histories reviewed, Dr. Espinoza is PCP. Review of Systems Narrative: - + nausea, body aches, headache PFSH PFS Medical History (Updated 01/01/25 @ 19:12 by Scarlet Dunne MD) Anaphylaxis ?T78.2XXA - Anaphylactic shock, unspecified, initial encounter (ICD-10) Depression ?F32.A - Depression, unspecified (ICD-10) Recurrent urticaria ?L50.8 - Other urticaria (ICD-10) Overuse syndrome of right hand ?S66.911A - Strain of unspecified muscle, fascia and tendon at wrist and hand level, right hand, initial encounter (ICD-10) De Quervain's tenosynovitis, right ?M65.4 - Radial styloid tenosynovitis [de Quervain] (ICD-10) RUQ abdominal pain ?R10.11 - Right upper quadrant pain (ICD-10) Family history of breast cancer ?Z80.3 - Family history of malignant neoplasm of breast (ICD-10) Breast lump in upper outer quadrant ?N63.0 - Unspecified lump in unspecified breast (ICD-10) COVID-19 ?U07.1 - COVID-19 (ICD-10) Mixed stress and urge urinary incontinence ?N39.46 - Mixed incontinence (ICD-10) BMI 39.0-39.9,adult ?Z68.39 - Body mass index [BMI] 39.0-39.9, adult (ICD-10) History of severe pre-eclampsia ?Z87.59 - Personal history of other complications of , childbirth and the puerperium (ICD-10) Normal vaginal delivery ?O80 - Encounter for full-term uncomplicated delivery (ICD-10) DELONTE (stress urinary incontinence, female) ?N39.3 - Stress incontinence (female) (male) (ICD-10) Hemorrhoids ?K64.9 - Unspecified hemorrhoids (ICD-10) Urticaria ?L50.9 - Urticaria, unspecified (ICD-10) Temporomandibular joint disorder ?M26.609 - Unspecified temporomandibular joint disorder, unspecified side (ICD-10) Hypertension (~10/2021) ?I10 - Essential (primary) hypertension (ICD-10) History of pre-eclampsia ?Z87.59 - Personal history of other complications of , childbirth and the puerperium (ICD-10) Generalized anxiety disorder ?F41.1 - Generalized anxiety disorder (ICD-10) Fluttering sensation of heart ?R00.2 - Palpitations (ICD-10) Endometriosis ?N80.9 - Endometriosis, unspecified (ICD-10) Chronic interstitial cystitis (~2008) ?N30.10 - Interstitial cystitis (chronic) without hematuria (ICD-10) Surgical History History of carpal tunnel surgery of right wrist (06/28/23) ?Z98.890 - Other specified postprocedural states (ICD-10) History of suburethral sling procedure (09/05/22) ?Z98.890 - Other specified postprocedural states (ICD-10) S/P laparoscopic hysterectomy (09/05/22) ?Z90.710 - Acquired absence of both cervix and uterus (ICD-10) S/P hemorrhoidectomy (09/05/22) ?Z98.890 - Other specified postprocedural states (ICD-10) ?Z87.19 - Personal history of other diseases of the digestive system (ICD-10) Hx of echocardiogram (2015) ?Z92.89 - Personal history of other medical treatment (ICD-10) History of tonsillectomy (~1997) ?Z90.89 - Acquired absence of other organs (ICD-10) History of sinus surgery (~08/2016) ?Z98.890 - Other specified postprocedural states (ICD-10) History of laparoscopy (05/2015) ?Z98.890 - Other specified postprocedural states (ICD-10) History of section (02/27/19) ?Z98.891 - History of uterine scar from previous surgery (ICD-10) Family History Mother Anxiety disorder Family history of breast cancer gene mutation in first degree relative High blood pressure Brain cancer Brother Asthma Maternal Grandmother Breast cancer, Onset Age: 40 Brain cancer Family/Other Breast cancer Type 1 diabetes mellitus Colon cancer Paternal Grandfather Coronary artery disease Heart disease Stroke Maternal Grandfather Coronary artery disease Heart disease Brother Heart murmur Father High blood pressure Paternal Grandmother Colon cancer Social History Narrative: , 3 kids, Nonsmoker, used to smoke 1 pack per week for 10 years Social alcohol use Does not exercise regularly Cis-gender, heterosexual woman Relationship status: to a male partner. 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 Education: 4 year college degree. Tobacco use: Former smoker, quit during her 1st in 2009. E-cigarettes: No Alcohol: Yes, 6-10 servings/month. Illicit/recreational drug use: No Concern for safety at home or work: No Desires to discuss abuse: No Exercise: No Dietary restriction: No What is your current living situation?: I presently have a place to live Problems where you live: no known problems Problems where you live details: NA In the past 12 months, utilities in danger of being shut off: no In past 12 months, lack of transportation kept you from medical appts, meetings, work, or getting things needed for daily living: yes In the past 12 mos, have been you worried that your food would run out before you had money to buy more?: never true In the past 12 mos, the food you bought just didn't last and you didn't have money to buy more?: never true Highest level of school completed/degree received: Associate degree: occupational, technical, vocational program Smoking Status: Former smoker What tobacco products do you use: cigarettes Smoking quit date/years: >15 years ago Do you use any of these nicotine containing products: Vaping Products Nicotine containing products detail: vape with social drinking Second hand tobacco smoke exposure: No How often do you have a drink containing alcohol: 2-4 times a month Alcohol type: hard liquor and other Alcohol type details: tavia How many standard drinks containing alcohol do you have on a typical day: 3 or 4 How often do you have six or more drinks on one occasion: Never AUDIT-C Alcohol total score: 3 Non-prescribed substance use: marijuana (any form) Caffeine: Yes (coffee) How often does anyone, including family, friends and others, physically hurt you : never How often does anyone, including family, friends and others, insult or talk down to you: never How often does anyone, including family, friends and others, threaten you with harm: never How often does anyone, including family, friends and others, scream or curse at you: never Are you using contraception or practicing any form of control: Yes ( had vasectomy) service: No Health Related Social Needs: transportation insecurity (Z59.82) Meds Home Medications and Allergies Home Medications ?Medication ?Instructions ?Recorded ?Confirmed ?Type cholecalciferol (vitamin D3) 10 10 mcg PO DAILY 03/17/22 01/01/25 History mcg (400 unit) capsule epinephrine 0.3 mg/0.3 mL 0.3 mg IM PRN PRN 03/17/22 01/01/25 History injection, auto-injector phentermine 37.5 mg tablet 37.5 mg PO DAILY 01/29/24 01/01/25 History bupropion HCl 150 mg 24 hr tablet, 150 mg PO DAILY 01/01/25 01/01/25 History extended release cetirizine 10 mg tablet 10 mg PO BID 01/01/25 01/01/25 History losartan 50 mg tablet 50 mg PO DAILY 01/01/25 01/01/25 History Allergies Allergy/AdvReac Type Severity Reaction Status Date / Time mupirocin Allergy Intermediate skin burn Verified 01/01/25 17:20 Exam Narrative: Exam Narrative: GEN: Alert and oriented, laying in bed. Appears ill but not toxic HEENT: EOMIs bilaterally, no scleral icterus CV: Heart rate low 100s without concerning murmurs R: LCTA bilaterally without concerning wheezing, air movement adequate Ab: Soft and nontender, nondistended Back: Significant CVA tenderness to palpation, L>R Ext: wwp, no concerning edema Skin: No concerning skin lesions or rashes on exposed skin Neuro: Nonfocal Psych: Appropriate Const: Vital Signs, click to edit/add: Vital Signs - 24 hr 01/01/25 12:29 01/01/25 14:18 Temperature 100.5 F H 99.1 F Pulse Rate [Right Pulse Oximeter] 111 H 88 Respiratory Rate 18 18 Blood Pressure [Ri ght Upper Arm] 110/71 116/86 Pulse Oximetry 99 99 Oxygen Delivery Me thod Room Air Room Air Hospitalist - H&P: Result Labs Labs: Short CBC 01/01/25 Range/Units 13:45 WBC 10.06 (4.50-11.00) K/uL Hgb 13.9 (12.0-16.0) gm/dL Hct 42.0 (33.0-51.0) % Plt Count 195 (140-440) K/uL BMP 01/01/25 13:45 Sodium 134 L Potassium 3.8 Chloride 100 Carbon Dioxide 23 BUN 10 Creatinine 0.7 Glucose 87 Calcium 9.0 Liver Function 01/01/25 Range/Units 13:45 Total Bilirubin 0.8 (0.1-1.5) mg/dL AST 34 (12-35) U/L ALT 42 H (4-35) U/L Alkaline Phosphatase 70 (40-150) U/L Albumin 4.5 (3.3-5.0) g/dL Urine 01/01/25 Range/Units 13:05 Urine Color Yellow (Yellow) Urine Appearance Slightly Cloudy A (Clear) Urine pH 6.0 (5.0-8.5) Ur Specific Parsons 1.020 (1.000-1.030) Urine Protein 2+ A (Negative) Urine Glucose (UA) Negative (Negative)
[2025-01-01] MEDS: ACETAMINOPHEN 325 MG TABLET 650 MG PO (16:51)
--- NOTE | 2025-01-01 17:06 | CRLHL7_ITS ---
For Patients: As a result of the Century Cures Act, medical imaging exams and procedure reports are released immediately into your electronic medical record. You may view this report before your referring provider. If you have questions, please contact your health care provider. INDICATION: Flank pain. Evaluate for pyelonephritis. TECHNIQUE: Multiplanar CT examination of the abdomen and pelvis was performed after the administration of 97 mL Isovue 370 intravenous contrast. COMPARISON: CT abdomen pelvis 08/20/2024. FINDINGS: Lower chest: No focal consolidation. Normal heart size. No pleural effusions or pneumothorax. Subsegmental and dependent atelectasis. Liver: Unremarkable. Gallbladder: Unremarkable. Biliary: Unremarkable. Pancreas: Within normal limits. Spleen: Unremarkable. Adrenal glands: Unremarkable. Renal/ureters/bladder: There is heterogeneous enhancement of the minimally edematous kidneys bilaterally, with associated perinephric fat stranding. Mildly prominent renal pelvis, gngm-[id number]-fmsd-right, with ureteral wall thickening and hyperenhancement. There are tiny nonobstructive calculi within the collecting system of the left kidney. No obstructive calculus identified. Minimal circumferential bladder wall thickening. Pelvis: Hysterectomy. No adnexal masses. Gastrointestinal: No bowel wall thickening or bowel obstruction. Normal appendix. No significant colonic diverticulosis. Mild colonic stool burden. Vasculature: No aortic aneurysm. The portal vein remains patent. No significant atherosclerotic calcifications. Lymph nodes: No pathologic lymphadenopathy by size criteria. Peritoneum: No free fluid or pneumoperitoneum. No drainable fluid collections. Abdominal wall/soft tissues: Unremarkable. Bones: No acute osseous abnormalities. Minimal multilevel degenerative changes of the visualized thoracolumbar spine. IMPRESSION: Heterogeneous enhancement of the renal parenchyma, with adjacent perinephric inflammatory changes as well as mild prominence and hyperenhancement of the renal pelvis bilaterally, compatible with acute bilateral pyelonephritis/pyelitis. No renal abscess. No obstructing urolithiasis. Please note that all CT scans at this facility use dose modulation, iterative reconstruction, and/or weight-based dosing when appropriate to reduce radiation dose to as low as reasonably achievable. Dictated by Harlan Anderson MD @ 01/01/2025 5:56:32 PM (Electronically Signed)
[2025-01-01] MEDS: ACETAMINOPHEN 325 MG TABLET PO (18:40)
[2025-01-01] MEDS: PIPERACILLIN/TAZOBACTAM 3.375 GM in 0.9 % SODIUM CHLORIDE Mini-bag 100 ML IVPB ×2 (18:41→23:53)
--- NOTE | 2025-01-01 19:27 | PC.NURSE ---
Nursing Care Hours: [id number] pt arrived to unit on alert and oriented but in pain. Rated L flank 6/10 and headache 6/10. Tachycardic. BP stable and stable on RA. Pt oral temp 101.9. Oral acetaminophen started and cool washcloth given. IV running NS. Bolus given per order and started IV abx. Pt independent in the room. Void 100ml. Aromatherapy Calming given d/t anxiety.
[2025-01-01] MEDS: 0.9 % SODIUM CHLORIDE 1000 ml 1,000 ML 125 ML IV (19:29)
[2025-01-01] MEDS: SODIUM CHLORIDE 0.9 % (FLUSH) 10 ML SYRINGE 5 ML IVF (19:30)
[2025-01-01] MEDS: CETIRIZINE HCL 10 MG TABLET PO (20:26)
[2025-01-02] MEDS: ONDANSETRON 2 MG/ML inj 4 MG IVP ×2 (02:45→17:24)
[2025-01-02] MEDS: ACETAMINOPHEN 500 MG TABLET 1000 MG PO ×2 (02:46→10:06)
[2025-01-02] MEDS: KETOROLAC 15 MG/ML inj IVP ×3 (02:56→18:27)
[2025-01-02 03:00] VITALS: BP 111/69; PULSE 84; RESP 16; TEMP 37.3; O2SAT 94
[2025-01-02] MEDS: 0.9 % SODIUM CHLORIDE 1000 ml 1,000 ML 125 ML IV ×2 (03:39→12:00)
[2025-01-02 06:21] LABS: Basophils Absolute Auto 0.01 K/uL (0.00-0.30); Basophils Percent Auto 0.1 % (0.0-3.0); Eosinophils Absolute Auto 0.01 K/uL (0.00-0.50); Eosinophils Percent Auto 0.1 % (0.0-7.0); Hematocrit 34.3 % (33.0-51.0); Hemoglobin* 11.3 gm/dL (12.0-16.0); Immature Granulocytes Abs Auto 0.03 K/uL (0.00-0.30); Immature Granulocytes Pct Auto 0.3 %; Lymphocytes Percent Auto 11.3 % (20-44); Mean Corpuscular HGB Conc 33 gm/dL (32-36); Mean Corpuscular Hemoglobin 27 pg (26-34); Mean Corpuscular Volume 83 fL (80-100); Neutrophils Percent Auto 77.2 % (42.0-72.0); Platelet Count* 159 K/uL (140-440); RDW Coefficient of Variation % 13.3 % (11.5-15.5); Red Blood Count 4.12 m/uL (4.00-5.20); White Blood Count* 10.12 K/uL (4.50-11.00)
[2025-01-02 06:22] LABS: Lactate* 0.4 mmol/L (0.5-1.9)
[2025-01-02 06:23] LABS: Slide Review Reflex No
--- NOTE | 2025-01-02 06:33 | PC.NURSE ---
[id number]: Pt pleasant, alert and oriented. VSS. Tele shows NSR. Pt stated pain rated 8/10, prn Toradol given, pt stated improvement. Pain primarily in head, abdomen tolerable. Pt up independently. Pt in bed, appears to be resting, call light within reach.?
[2025-01-02] MEDS: PIPERACILLIN/TAZOBACTAM 3.375 GM in 0.9 % SODIUM CHLORIDE Mini-bag 100 ML IVPB ×3 (06:43→18:26)
[2025-01-02 06:48] LABS: Albumin* 3.2 g/dL (3.3-5.0); Chloride* 110 mmol/L (96-114); Sodium* 138 mmol/L (135-149)
[2025-01-02 06:49] LABS: Potassium* 3.5 mmol/L (3.6-5.1)
[2025-01-02 06:51] LABS: Alanine Aminotransferase* 47 U/L (4-35); Alkaline Phosphatase* 62 U/L (40-150); Anion Gap 10 mEq/L (7-15); Aspartate Amino Transferase* 37 U/L (12-35); Bilirubin Total* 0.8 mg/dL (0.1-1.5); Blood Urea Nitrogen* 7 mg/dL (5-24); Carbon Dioxide* 18 mmol/L (20-32); Creatinine* 0.6 mg/dL (0.5-1.5); Est. Creatinine Clearance* 124.84; Estimated Glomerular Filt Rate 118 ml/min; Total Protein* 5.3 g/dL (6.0-8.3)
[2025-01-02 06:52] LABS: Calcium* 7.7 mg/dL (8.4-10.6); Glucose* 84 mg/dL (60-115); Magnesium* 1.9 mg/dL (1.5-2.6)
[2025-01-02 07:12] LABS: C Reactive Protein* 17.4 mg/dL (0.5-1.0)
[2025-01-02 07:22] VITALS: PULSE 67
[2025-01-02 08:00] VITALS: BP 104/62; PULSE 74; RESP 14; TEMP 36.9; O2SAT 99
[2025-01-02] MEDS: SERTRALINE 100 MG TABLET 150 MG PO (08:33)
[2025-01-02] MEDS: CETIRIZINE HCL 10 MG TABLET PO ×2 (08:34→21:16)
[2025-01-02] MEDS: buPROPion XL 150 MG TABLET PO (08:34)
--- NOTE | 2025-01-02 09:26 | PM.IMPN1 ---
Assessment and Plan Assessment and plan (1) Pyelonephritis: Problem comment: - with associated fever, body aches, headache, nausea, anorexia - treated with piperacillin/tazobactam, scheduled Tylenol, IV fluids - urine culture + for pansensitive E coli on 12/30/2024 - repeat urine culture and blood cultures from 01/01/2025 obtained and pending Status: Acute (2) Anaphylaxis: Problem comment: - History of anaphylaxis and hives twice relating to stress - Reportedly allergy testing was negative, has Epi Pen - on admission 01/01, no evidence of urticaria - takes Zyrtec 10mg BID, will continue during stay Status: Chronic (3) Hypokalemia: Problem comment: - replace and follow Status: Acute (4) Elevated LFTs: Problem comment: - likely related to acute illness, no hepatic abnormalities on imaging Status: Acute Plan - patient continues to require inpatient level of care management, is quite ill from pyelonephritis with severe associated nausea, limited po intake, significant weakness - await culture results - prophylaxis: SCDs and Lovenox Subjective Date Seen: 01/02/25 Interval history: Vangie was admitted to the hospital on 01/01 for weakness, nausea, tachycardia, and body aches in the setting of recently diagnosed UTI. Clinically appeared to have pyelonephritis; CT scan confirmed this (bilateral disease). Previous UCx (collected 12/30) positive for pansensitive E Coli, had not been able to complete course of Macrobid 2/2 nausea and vomiting. On IV fluids and Zosyn. T-max overnight 101.9 This morning, Vangie continues to feel very weak and nauseated, has not had vomiting and will trial a bland diet. She continues to require IVFs and IV antibiotic therapy as we await culture results. Exam Narrative: Exam Narrative: GEN: Alert and oriented, laying in bedside chair. Appears ill HEENT: EOMIs bilaterally, no scleral icterus CV: RRR, No concerning murmurs R: Air movement adequate, no wheezing Ext: wwp, no concerning edema Skin: No concerning skin lesions or rashes on exposed skin Neuro: Nonfocal Psych: Appropriate Const: Vital Signs, click to edit/add: Vital Signs - 24 hr 01/01/25 12:29 01/01/25 14:18 01/01/25 16:14 Temperature 100.5 F H 99.1 F 101.9 F H Pulse Rate Pulse Rate [Left P ulse Oximeter] 98 Pulse Rate [Right Pulse Oximeter] 111 H 88 Respiratory Rate 18 18 18 Blood Pressure [Ri ght Arm] 120/69 Blood Pressure [Ri ght Upper Arm] 110/71 116/86 Pulse Oximetry 99 99 99 Oxygen Delivery Me thod Room Air Room Air Room Air 01/01/25 16:14 01/01/25 16:51 01/01/25 17:48 Temperature 101.9 F H Pulse Rate 96 Pulse Rate [Left P ulse Oximeter] Pulse Rate [Right Pulse Oximeter] Respiratory Rate Blood Pressure [Ri ght Arm] Blood Pressure [Ri ght Upper Arm] Pulse Oximetry 99 Oxygen Delivery Ma thod Room Air 01/01/25 18:40 01/01/25 19:27 01/01/25 19:35 Temperature 101.9 F H 99.2 F 99.2 F Pulse Rate Pulse Rate [Left P ulse Oximeter] 86 Pulse Rate [Right Pulse Oximeter] Respiratory Rate 16 Blood Pressure [Ri ght Arm] 116/63 Blood Pressure [Ri ght Upper Arm] Pulse Oximetry 98 Oxygen Delivery Ma thod Room Air 01/01/25 23:00 01/01/25 23:00 01/01/25 23:00 Temperature Pulse Rate 70 Pulse Rate [Left P ulse Oximeter] 79 79 Pulse Rate [Right Pulse Oximeter] Respiratory Rate 16 16 Blood Pressure [Ri ght Arm] 88/49 L Blood Pressure [Ri ght Upper Arm] Pulse Oximetry 99 Oxygen Delivery Ma thod Room Air 01/02/25 03:00 01/02/25 07:22 Temperature 99.2 F Pulse Rate 67 Pulse Rate [Left P ulse Oximeter] 84 Pulse Rate [Right Pulse Oximeter] Respiratory Rate 16 Blood Pressure [Ri ght Arm] 111/69 Blood Pressure [Ri ght Upper Arm] Pulse Oximetry 94 Oxygen Delivery Ma thod Room Air Labs Labs: Laboratory Results - last 24 hr 01/01/25 01/01/25 01/01/25 13:03 13:05 13:45 WBC 10.06 RBC 5.11 Hgb 13.9 Hct 42.0 MCV 82 MCH 27 MCHC 33 RDW Coeff of [place] 13.0 Plt Count 195 Neut % (Auto) 80.7 H Lymph % (Auto) 9.1 L [place] % (Auto) 9.7 Eos % (Auto) 0.1 Baso % (Auto) 0.1 Neut # (Auto) 8.10 H Lymph # (Auto) 0.90 [place] # (Auto) 1.00 H Eos # (Auto) 0.01 Baso # (Auto) 0.01 Abs Immat Gran (auto) 0.03 Imm/Tot Granulo (auto) 0.3 Sodium 134 L Potassium 3.8 Chloride 100 Carbon Dioxide 23 Anion Gap 11 BUN 10 Creatinine 0.7 Estimated Creat Clear 107.01 Estimated GFR 114 Glucose 87 Lactate 0.7 Calcium 9.0 Magnesium Total Bilirubin 0.8 AST 34 ALT 42 H Alkaline Phosphatase 70 C-Reactive Protein 16.9 H Total Protein 7.3 Albumin 4.5 Urine Color Yellow Urine Appearance Slightly Cloudy A Urine pH 6.0 Ur Specific [place] 1.020 Urine Protein 2+ A Urine Glucose (UA) Negative Urine Ketones Trace A Urine Blood 2+ A Urine Nitrite Negative Urine Bilirubin 2+ A Urine Urobilinogen >=8.0 A Ur Leukocyte Esterase 3+ A Urine RBC 2-5 A Urine WBC 10-25 A Ur Squamous Epith Cells Many A Urine Bacteria Many A Lab Acknowledgement Test Added 01/02/25 01/02/25 04:00 05:55 WBC 10.12 RBC 4.12 Hgb 11.3 L Hct 34.3 MCV 83 MCH 27 MCHC 33 RDW Coeff of [place] 13.3 Plt Count 159 Neut % (Auto) 77.2 H Lymph % (Auto) 11.3 L [place] % (Auto) 11.0 Eos % (Auto) 0.1 Baso % (Auto) 0.1 Neut # (Auto) 7.80 H Lymph # (Auto) 1.10 [place] # (Auto) 1.10 H Eos # (Auto) 0.01 Baso # (Auto) 0.01 Abs Immat Gran (auto) 0.03 Imm/Tot Granulo (auto) 0.3 Sodium 138 Potassium 3.5 L Chloride 110 Carbon Dioxide 18 L Anion Gap 10 BUN 7 Creatinine 0.6 Estimated Creat Clear 124.84 Estimated GFR 118 Glucose 84 Lactate 0.4 L Calcium 7.7 L Magnesium 1.9 Total Bilirubin 0.8 AST 37 H ALT 47 H Alkaline Phosphatase 62 C-Reactive Protein 17.4 H Total Protein 5.3 L Albumin 3.2 L Urine Color Urine Appearance Urine pH Ur Specific [place] Urine Protein Urine Glucose (UA) Urine Ketones Urine Blood Urine Nitrite Urine Bilirubin Urine Urobilinogen Ur Leukocyte Esterase Urine RBC Urine WBC Ur Squamous Epith Cells Urine Bacteria Lab Acknowledgement
[2025-01-02] MEDS: POTASSIUM CHLORIDE 10 MEQ/100 ML PIGGYBACK 100 MEQ IVPB (10:06)
[2025-01-02 11:00] VITALS: BP 111/68; PULSE 73; RESP 18; TEMP 37.1; O2SAT 97
--- NOTE | 2025-01-02 14:23 | PC.NURSE ---
Shift Summary: Patient pleasant and cooperative. Up independently in room. Vitals stable and WNL. Poor appetite, encouraged to eat small frequent meals. Pain in flank 12/25, managed with PRN medication see MAR. Patient states urine still appears orange/yellow. IV fluids still running @ 125cc/hr. Given x1 dose of IV potassium per MD order.
[2025-01-02 15:00] VITALS: BP 131/92; PULSE 74; RESP 16; TEMP 37.1; O2SAT 100
[2025-01-02] MEDS: MORPHINE 2 MG/ML inj IVP (17:27)
--- NOTE | 2025-01-02 19:38 | PC.NURSE ---
End of shift - RN took over pt care at approximately 1500. Pt sleeping at start of shift, reported pain in R flank increased in intensity and caused her to wake up. Pt tearful, reported that pain was the most intense that it has been. Given medication per MAR with pt reporting improvement. Up independently, tolerating RA and regular diet. Decreased appetite noted, RN provided encouragement and nutritional education. Family at bedside, pt appears to be resting comfortably in chair at end of shift with call light within reach.
[2025-01-02 20:05] VITALS: BP 114/68; PULSE 79; RESP 20; TEMP 37.2; O2SAT 98
[2025-01-02] MEDS: SODIUM CHLORIDE 0.9 % (FLUSH) 10 ML SYRINGE 5 ML IVF (21:16)
[2025-01-02] MEDS: hydrOXYzine pamoate 25 MG CAPSULE PO (21:43)
[2025-01-03] VITALS (7 sets, daily range): BP systolic 105–131; BP diastolic 65–88; PULSE 64–72; RESP 16; TEMP 36.4–37.1; O2SAT 97–99
[2025-01-03] MEDS: PIPERACILLIN/TAZOBACTAM 3.375 GM in 0.9 % SODIUM CHLORIDE Mini-bag 100 ML IVPB ×5 (00:19→23:57)
[2025-01-03] MEDS: ACETAMINOPHEN 500 MG TABLET 1000 MG PO ×3 (01:16→18:38)
[2025-01-03] MEDS: KETOROLAC 15 MG/ML inj IVP ×3 (05:58→21:55)
[2025-01-03] MEDS: SODIUM CHLORIDE 0.9 % (FLUSH) 10 ML SYRINGE 5 ML IVF ×7 (05:59→23:57)
--- NOTE | 2025-01-03 06:11 | PC.NURSE ---
Pt alert and oriented. Pt pleasant and cooperative. Pt had complaints of pain ranging from 2-3; see EMAR for intervention. Pt up independently in room. Pt slept on and off through out most of shift. VS WNL.?Afebrile.
[2025-01-03 06:27] LABS: Basophils Absolute Auto 0.01 K/uL (0.00-0.30); Basophils Percent Auto 0.1 % (0.0-3.0); Eosinophils Absolute Auto 0.05 K/uL (0.00-0.50); Eosinophils Percent Auto 0.7 % (0.0-7.0); Hematocrit 33.1 % (33.0-51.0); Hemoglobin* 10.8 gm/dL (12.0-16.0); Immature Granulocytes Abs Auto 0.02 K/uL (0.00-0.30); Immature Granulocytes Pct Auto 0.3 %; Lymphocytes Absolute Auto 1.59 K/uL (0.90-2.90); Lymphocytes Percent Auto 23.6 % (20-44); Mean Corpuscular HGB Conc 33 gm/dL (32-36); Mean Corpuscular Hemoglobin 27 pg (26-34); Mean Corpuscular Volume 84 fL (80-100); Monocytes Percent Auto 12.2 % (0.0-11.0); Neutrophils Absolute Auto 4.25 K/uL (1.7-7.0); Neutrophils Percent Auto 63.1 % (42.0-72.0); Platelet Count* 171 K/uL (140-440); RDW Coefficient of Variation % 13.6 % (11.5-15.5); Red Blood Count 3.96 m/uL (4.00-5.20); Slide Review Reflex No; White Blood Count* 6.74 K/uL (4.50-11.00)
[2025-01-03 06:44] LABS: Albumin* 3.1 g/dL (3.3-5.0); Chloride* 110 mmol/L (96-114); Sodium* 140 mmol/L (135-149)
[2025-01-03 06:46] LABS: Blood Urea Nitrogen* 6 mg/dL (5-24); Creatinine* 0.7 mg/dL (0.5-1.5); Est. Creatinine Clearance* 107.01; Estimated Glomerular Filt Rate 114 ml/min
[2025-01-03 06:47] LABS: Alanine Aminotransferase* 50 U/L (4-35); Alkaline Phosphatase* 59 U/L (40-150); Anion Gap 6 mEq/L (7-15); Aspartate Amino Transferase* 33 U/L (12-35); Bilirubin Total* 0.5 mg/dL (0.1-1.5); Calcium* 8.3 mg/dL (8.4-10.6); Carbon Dioxide* 24 mmol/L (20-32); Glucose* 94 mg/dL (60-115); Magnesium* 2.1 mg/dL (1.5-2.6); Total Protein* 5.4 g/dL (6.0-8.3)
[2025-01-03] MEDS: buPROPion XL 150 MG TABLET PO (09:34)
[2025-01-03] MEDS: SERTRALINE 100 MG TABLET 150 MG PO (09:34)
[2025-01-03] MEDS: CETIRIZINE HCL 10 MG TABLET PO ×2 (09:34→20:50)
--- NOTE | 2025-01-03 10:45 | CRLHL7_ITS ---
For Patients: As a result of the Century Cures Act, medical imaging exams and procedure reports are released immediately into your electronic medical record. You may view this report before your referring provider. If you have questions, please contact your health care provider. INDICATION: Chest pain. COMPARISON: None. TECHNIQUE: Chest series. FINDINGS: Lungs are clear. No pleural effusions. No pneumothorax Normal cardiomediastinal silhouette. No osseous abnormalities. IMPRESSION: No acute findings. Dictated by Daniel Argueta MD @ 01/03/2025 11:16:04 AM (Electronically Signed)
--- NOTE | 2025-01-03 13:49 | PM.IMPN1 ---
Assessment and Plan Assessment and plan (1) Pyelonephritis: Problem comment: - with associated fever, body aches, headache, nausea, anorexia - treated with piperacillin/tazobactam, scheduled Tylenol, IV fluids - urine culture + for pansensitive E coli on 12/30/2024 - repeat urine culture and blood cultures from 01/01/2025 obtained: Urine culture again grew out pansensitive E coli, and blood cultures are negative to date - continue with IV antibiotics. Saline lock IV. Increase activity. - consider at time of discharge changing to oral levofloxacin 750 mg p.o. once daily for 7-10 more days. Status: Acute (2) Anaphylaxis: Problem comment: - History of anaphylaxis and hives twice relating to stress - Reportedly allergy testing was negative, has Epi Pen - on admission 01/01, no evidence of urticaria - takes Zyrtec 10mg BID, will continue during stay Status: Chronic (3) Hypokalemia: Problem comment: - replace and follow Status: Acute (4) Elevated LFTs: Problem comment: - likely related to acute illness, no hepatic abnormalities on imaging Status: Acute Plan 1. Reviewed impression, plan, recommendations with patient 2. Answered her questions are satisfaction 3. She is agreeable with above stated plans and recommendations Total Time Spent Total Time Spent: 45 minutes Subjective Date Seen: 01/03/25 Interval history: Vangie was admitted to the hospital on 01/01 for weakness, nausea, tachycardia, and body aches in the setting of recently diagnosed UTI. Clinically appeared to have pyelonephritis; CT scan confirmed this (bilateral disease). Previous UCx (collected 12/30) positive for pansensitive E Coli, had not been able to complete course of Macrobid 2/2 nausea and vomiting. On IV fluids and Zosyn. T-max 01/02/2025 101.9 ? F. Has been afebrile now for 24 hours. Indicates she has 5-10% better than at her worst moment during this illness. No more vomiting. Nausea is improved. Still weak but improved from previously. Exam Narrative: Exam Narrative: Examined patient in her hospital room. Appears exhausted otherwise no acute distress. Alert and oriented x4. Vision and hearing are adequate. Lungs are clear to auscultation. Chest wall excursions are full. Minimal bilateral flank discomfort with thumping. Heart tones with regular rhythm, normal S1-S2, without murmur, gallop, rub. PMI not laterally displaced. Abdomen with active bowel sounds, soft, nontender. Extremities without edema. Independent in transfer, station, and gait. Skin is warm, dry, intact. Const: Vital Signs, click to edit/add: Vital Signs - 24 hr 01/02/25 15:00 01/02/25 20:05 01/03/25 00:26 Temperature 98.8 F 98.9 F 98.6 F Pulse Rate [Left P ulse Oximeter] 74 79 64 Pulse Rate [orthos tatic lying] Pulse Rate [orthos tatic sitting] Pulse Rate [orthos tatic standing] Respiratory Rate 16 20 16 Blood Pressure [Ri ght Arm] 131/92 H 114/68 105/69 Blood Pressure [or thostatic lying] Blood Pressure [or thostatic sitting] Blood Pressure [or thostatic standing ] Pulse Oximetry 100 98 98 Oxygen Delivery Me thod Room Air Room Air Room Air 01/03/25 05:31 01/03/25 07:00 01/03/25 10:36 Temperature 98.5 F 98.6 F Pulse Rate [Left P ulse Oximeter] 67 67 Pulse Rate [orthos tatic lying] 69 Pulse Rate [orthos tatic sitting] 70 Pulse Rate [orthos tatic standing] 72 Respiratory Rate 16 16 Blood Pressure [Ri ght Arm] 109/65 122/82 Blood Pressure [or thostatic lying] 122/82 Blood Pressure [or thostatic sitting] 129/82 Blood Pressure [or thostatic standing ] 131/88 Pulse Oximetry 97 98 Oxygen Delivery Me thod Room Air Room Air Labs Labs: Laboratory Results - last 24 hr 01/03/25 06:11 WBC 6.74 RBC 3.96 L Hgb 10.8 L Hct 33.1 MCV 84 MCH 27 MCHC 33 RDW Coeff of [place] 13.6 Plt Count 171 Neut % (Auto) 63.1 Lymph % (Auto) 23.6 [place] % (Auto) 12.2 H Eos % (Auto) 0.7 Baso % (Auto) 0.1 Neut # (Auto) 4.25 Lymph # (Auto) 1.59 [place] # (Auto) 0.80 Eos # (Auto) 0.05 Baso # (Auto) 0.01 Abs Immat Gran (auto) 0.02 Imm/Tot Granulo (auto) 0.3 Sodium 140 Potassium 4.0 Chloride 110 Carbon Dioxide 24 Anion Gap 6 L BUN 6 Creatinine 0.7 Estimated Creat Clear 107.01 Estimated GFR 114 Glucose 94 Calcium 8.3 L Magnesium 2.1 Total Bilirubin 0.5 AST 33 ALT 50 H Alkaline Phosphatase 59 Total Protein 5.4 L Albumin 3.[address] scan of abdomen and pelvis: Attestation: I have reviewed the pertinent imaging results. Radiologist's impression: FINDINGS: Lower chest: No focal consolidation. Normal heart size. No pleural effusions or pneumothorax. Subsegmental and dependent atelectasis. Liver: Unremarkable. Gallbladder: Unremarkable. Biliary: Unremarkable. Pancreas: Within normal limits. Spleen: Unremarkable. Adrenal glands: Unremarkable. Renal/ureters/bladder: There is heterogeneous enhancement of the minimally edematous kidneys bilaterally, with associated perinephric fat stranding. Mildly prominent renal pelvis, [id number], with ureteral wall thickening and hyperenhancement. There are tiny nonobstructive calculi within the collecting system of the left kidney. No obstructive calculus identified. Minimal circumferential bladder wall thickening. Pelvis: Hysterectomy. No adnexal masses. Gastrointestinal: No bowel wall thickening or bowel obstruction. Normal appendix. No significant colonic diverticulosis. Mild colonic stool burden. Vasculature: No aortic aneurysm. The portal vein remains patent. No significant atherosclerotic calcifications. Lymph nodes: No pathologic lymphadenopathy by size criteria. Peritoneum: No free fluid or pneumoperitoneum. No drainable fluid collections. Abdominal wall/soft tissues: Unremarkable. Bones: No acute osseous abnormalities. Minimal multilevel degenerative changes of the visualized thoracolumbar spine. IMPRESSION: Heterogeneous enhancement of the renal parenchyma, with adjacent perinephric inflammatory changes as well as mild prominence and hyperenhancement of the renal pelvis bilaterally, compatible with acute bilateral pyelonephritis/pyelitis. No renal abscess. No obstructing urolithiasis. Chest x-ray: Attestation: I have reviewed the pertinent imaging results. Radiologist's impression: No acute cardiopulmonary processes noted. ECG Attestation: I personally reviewed and interpreted this ECG as follows: Prior ECG tracings: not available for review Interpretation: Normal sinus rhythm with nonspecific inferior lateral T-wave abnormalities.
[2025-01-03] MEDS: hydrOXYzine pamoate 25 MG CAPSULE PO ×2 (13:54→21:55)
[2025-01-03] MEDS: ONDANSETRON 2 MG/ML inj 4 MG IVP (14:32)
--- NOTE | 2025-01-03 19:09 | PC.NURSE ---
End of shift - Pt alert, oriented, cooperative and pleasant. Up independently in room. Tolerating RA and regular diet/fluids. Increased appetite noted by RN from previous shift. Pt reported pain in abdomen as high as 5/10, given medication per MAR with pt reporting improvement. Pt reported feeling the best she has felt during shift. Noted to ambulate frequently around room. VSS, afebrile. Family at bedside, pt appears to be resting comfortably at end of shift with call light within reach.
[2025-01-04 03:00] VITALS: RESP 16
--- NOTE | 2025-01-04 05:36 | PC.NURSE ---
[id number] Pt up in chair, ambulating ind. in room, tolerating activity well. afrile during shift, reports 0-3/10 pain to L flank, denies abd pain or pain to R flank. No N/V this shift, tolerating oral intake. voiding without difficulty. pain controlled with prn pain medications.
[2025-01-04] MEDS: PIPERACILLIN/TAZOBACTAM 3.375 GM in 0.9 % SODIUM CHLORIDE Mini-bag 100 ML IVPB (06:04)
[2025-01-04] MEDS: SODIUM CHLORIDE 0.9 % (FLUSH) 10 ML SYRINGE 5 ML IVF (06:10)
[2025-01-04] MEDS: KETOROLAC 15 MG/ML inj IVP (06:10)
[2025-01-04 06:24] LABS: Hematocrit 34.4 % (33.0-51.0); Hemoglobin* 11.2 gm/dL (12.0-16.0); Mean Corpuscular HGB Conc 33 gm/dL (32-36); Mean Corpuscular Hemoglobin 27 pg (26-34); Mean Corpuscular Volume 83 fL (80-100); Platelet Count* 224 K/uL (140-440); Red Blood Count 4.14 m/uL (4.00-5.20); White Blood Count* 5.49 K/uL (4.50-11.00)
[2025-01-04 06:25] LABS: Slide Review Reflex No
[2025-01-04 06:31] LABS: Albumin* 3.3 g/dL (3.3-5.0)
[2025-01-04 06:34] LABS: Alanine Aminotransferase* 48 U/L (4-35); Alkaline Phosphatase* 62 U/L (40-150); Aspartate Amino Transferase* 30 U/L (12-35); Bilirubin Direct* 0.4 mg/dL (0.0-0.5); Bilirubin Total* 0.4 mg/dL (0.1-1.5); Total Protein* 5.7 g/dL (6.0-8.3)
[2025-01-04 08:00] VITALS: BP 130/88; PULSE 75; RESP 16; TEMP 36.9; O2SAT 97
[2025-01-04] MEDS: buPROPion XL 150 MG TABLET PO (09:01)
[2025-01-04] MEDS: CETIRIZINE HCL 10 MG TABLET PO (09:01)
[2025-01-04] MEDS: SERTRALINE 100 MG TABLET 150 MG PO (09:01)
[2025-01-04] MEDS: levoFLOXacin 750 MG TABLET PO (09:01)
--- NOTE | 2025-01-04 10:28 | PM.DS1 ---
DS: Providers Provider Date Seen: 01/04/25 Date of admission: 01/01/25 17:09 Primary care physician: Celina Espinoza MD Admitting Clinician: Scarlet Dunne MD Attending Physician on discharge: Fredy Chambers MD Date of Discharge: 01/04/25 DS: Diagnosis Discharge Diagnosis (1) Pyelonephritis: Status: Acute Problem details: - with associated fever, body aches, headache, nausea, anorexia - treated with piperacillin/tazobactam, scheduled Tylenol, IV fluids - urine culture + for pansensitive E coli on 12/30/2024 - repeat urine culture and blood cultures from 01/01/2025 obtained: Urine culture again grew out pansensitive E coli, and blood cultures are negative to date - continue with IV antibiotics. Saline lock IV. Increase activity. - at time of discharge change to oral levofloxacin 750 mg p.o. once daily for 7 more days. (2) Nausea: Status: Acute (3) Hypokalemia: Status: Acute Problem details: - replace and follow (4) Elevated LFTs: Status: Acute Problem details: - likely related to acute illness, no hepatic abnormalities on imaging (5) History of kidney stones: Status: Acute Problem details: - adequate hydration, urinate a minimum of 1.5-2 L of urine daily - 2 g sodium diet - adequate calcium consumption (6) Anaphylaxis: Status: Chronic Problem details: - History of anaphylaxis and hives twice relating to stress - Reportedly allergy testing was negative, has Epi Pen - on admission 01/01, no evidence of urticaria - takes Zyrtec 10mg BID, will continue during stay DS: Summary Hospital Course Hospital Course: Admission history of present illness: ?39 year old female who presented to the ER today for nausea, fever, and achiness in the setting of known UTI. History of recurrent UTIs + chronic dysuria, worsening symptoms + back pain that started on Sunday, 12/28. Culture collected 12/30 was + for pansensitive E Coli, started on Macrobid. Has had nausea and headache, unable to keep medication down. Hasn't eaten much at all in the past 3-4 days. Today, felt worse and had a fever, so presented to ER. ?ER Course and Findings: - T of 100.5, WBC 10 with 80% PMNs - CRP 16.9, ALT 42, Na 134, + UA - blood and urine cultures pending - received Ceftriaxone, Toradol, IVF boluses, Zofran ?Upon arrival to the floor, Vangie had a temperature of 101.9 CT A/P obtained, findings consistent with bilateral pyelonephritis without abscess or obstructing stones.? Continue to spike fevers intermittently initially. Over time she remained afebrile. Was markedly weak and fatigued when she 1st presented. Gradually over time this trended toward normalization. Myalgias, arthralgias, headaches all improved slowly over time as well. Less nausea. Able to tolerate oral intake. See details in diagnosis section above. Status at Discharge Functional status at discharge: independent ambulation Overall status at discharge: patient is progressing back to baseline Time Spent with Patient Time attestation: Total time spent providing and/or coordinating discharge services: Time spent: Greater than 30 minutes Exam Narrative: Exam Narrative: Examined patient in her hospital room. Appears less exhausted and more awake and interactive, otherwise no acute distress. Alert and oriented x4. Vision and hearing are adequate. Lungs are clear to auscultation. Chest wall excursions are full. Minimal bilateral flank discomfort with thumping. Heart tones with regular rhythm, normal S1-S2, without murmur, gallop, rub. PMI not laterally displaced. Abdomen with active bowel sounds, soft, nontender. Extremities without edema. Independent in transfer, station, and gait. Skin is warm, dry, intact. Const: Vital Signs, click to edit/add: Vital Signs - 24 hr 01/03/25 10:36 01/03/25 15:00 01/03/25 19:00 Temperature 97.6 F 98.7 F Pulse Rate [Left P ulse Oximeter] 69 71 Pulse Rate [orthos tatic lying] 69 Pulse Rate [orthos tatic sitting] 70 Pulse Rate [orthos tatic standing] 72 Respiratory Rate 16 16 Blood Pressure [Le ft Arm] Blood Pressure [Ri ght Arm] 118/74 110/67 Blood Pressure [or thostatic lying] 122/82 Blood Pressure [or thostatic sitting] 129/82 Blood Pressure [or thostatic standing ] 131/88 Pulse Oximetry 99 97 Oxygen Delivery Me thod Room Air Room Air 01/03/25 22:02 01/04/25 03:00 01/04/25 08:00 Temperature 98.7 F 98.5 F Pulse Rate [Left P ulse Oximeter] 67 75 Pulse Rate [orthos tatic lying] Pulse Rate [orthos tatic sitting] Pulse Rate [orthos tatic standing] Respiratory Rate 16 16 16 Blood Pressure [Le ft Arm] 130/88 Blood Pressure [Ri ght Arm] 120/67 Blood Pressure [or thostatic lying] Blood Pressure [or thostatic sitting] Blood Pressure [or thostatic standing ] Pulse Oximetry 99 97 Oxygen Delivery Me thod Room Air Room Air DS: Data Data Completed and Pending Labs on day of discharge: Labs from last 24 hours 01/04/25 05:44 WBC 5.49 RBC 4.14 Hgb 11.2 L Hct 34.4 MCV 83 MCH 27 MCHC 33 Plt Count 224 Total Bilirubin 0.4 Direct Bilirubin 0.4 AST 30 ALT 48 H Alkaline Phosphatase 62 Total Protein 5.7 L Albumin 3.3 Preliminary micro results at discharge 01/01/25 14:30 Blood Culture - Preliminary Blood NO GROWTH AFTER 48 HOURS 01/01/25 13:45 Blood Culture - Preliminary Blood NO GROWTH AFTER [address] scan of abdomen and pelvis: Attestation: I have reviewed the pertinent imaging results. Radiologist's impression: FINDINGS: Lower chest: No focal consolidation. Normal heart size. No pleural effusions or pneumothorax. Subsegmental and dependent atelectasis. Liver: Unremarkable. Gallbladder: Unremarkable. Biliary: Unremarkable. Pancreas: Within normal limits. Spleen: Unremarkable. Adrenal glands: Unremarkable. Renal/ureters/bladder: There is heterogeneous enhancement of the minimally edematous kidneys bilaterally, with associated perinephric fat stranding. Mildly prominent renal pelvis, [id number]-right, with ureteral wall thickening and hyperenhancement. There are tiny nonobstructive calculi within the collecting system of the left kidney. No obstructive calculus identified. Minimal circumferential bladder wall thickening. Pelvis: Hysterectomy. No adnexal masses. Gastrointestinal: No bowel wall thickening or bowel obstruction. Normal appendix. No significant colonic diverticulosis. Mild colonic stool burden. Vasculature: No aortic aneurysm. The portal vein remains patent. No significant atherosclerotic calcifications. Lymph nodes: No pathologic lymphadenopathy by size criteria. Peritoneum: No free fluid or pneumoperitoneum. No drainable fluid collections. Abdominal wall/soft tissues: Unremarkable. Bones: No acute osseous abnormalities. Minimal multilevel degenerative changes of the visualized thoracolumbar spine. IMPRESSION: Heterogeneous enhancement of the renal parenchyma, with adjacent perinephric inflammatory changes as well as mild prominence and hyperenhancement of the renal pelvis bilaterally, compatible with acute bilateral pyelonephritis/pyelitis. No renal abscess. No obstructing urolithiasis. Discharge Plan Discharge Disposition: Home, Self-Care Date of Admission: 01/01/25 17:09 Attending Provider on Discharge: Fredy Chambers Primary Care Provider: Celina Espinoza Condition: Improved Anticipated Discharge Date/Time: 01/04/25 10:00 Discharge Medications: New ondansetron 4 mg tablet,disintegrating 4 mg PO Q6H PRN (Reason: nausea and vomiting) Qty: 7 0RF levofloxacin 750 mg tablet 750 mg PO DAILY Qty: 5 0RF ibuprofen 200 mg tablet 400 mg PO QID PRNQty: 30 0RF acetaminophen 325 mg tablet 650 mg PO QID PRNQty: 100 0RF Continued epinephrine 0.3 mg/0.3 mL auto-injector 0.3 mg IM PRN PRN cholecalciferol (vitamin D3) 10 mcg (400 unit) capsule 10 mcg PO DAILY phentermine 37.5 mg tablet 37.5 mg PO DAILY losartan 50 mg tablet 50 mg PO DAILY bupropion HCl 150 mg tablet extended release 24 hr 150 mg PO DAILY cetirizine 10 mg tablet 10 mg PO BID sertraline 100 mg tablet 150 mg PO DAILY Qty: 135 0RF Discharge Orders: Discharge Order (Routine); Ordered 01/04/25 Ordered By: Fredy Chambers Patient Education: Acetaminophen (By mouth), Ibuprofen (By mouth), Ondansetron (By mouth), Levofloxacin (By mouth) (Levaquin, Levaquin Leva-inga), Kidney Stones (DC), Urinary Tract Infection in Women (DC), Liquids and Hydration for Athletes (DC), Kidney Infection (DC), Low-Sodium Diet (DC) Additional Instructions: 1. Follow-up with Dr. Espinoza in 10-20 days, including discussion about preventive and self-cares (you're in this for the long jay) 2. Probiotic daily per package directions for 1 month 3. May return to work on 01/12/2025, without restrictions 4. Return to clinic or hospital sooner if needed Activity Level: No Restrictions and Activity as Tolerated Discharge Diet: 2 gm Sodium Diet Detail: Drink sufficient fluids to urinate 1.5-2 liters of urine daily Follow Up Appointments: Celina Espinoza MD [Primary Care Provider] - 01/14/25 8:00 am Forms: [employer] Medical Info Instructions
== END 2025-01-04 09:48 | disposition home or self-care (01) | DRG 690 ==
LOC: ED 15:05 → MEDSURG 16:06
PROVIDERS: Internal Medicine; Admitting Provider Family Medicine; Emergency Provider Family Medicine; PCP Family Medicine; Visit Provider Family Medicine
DX: N10 Acute pyelonephritis (principal); Z87.892 Personal history of anaphylaxis; E87.6 Hypokalemia; R79.89 Other specified abnormal findings of blood chemistry; B96.20 Unspecified Escherichia coli [E. coli] as the cause of diseases classified elsewhere; Z87.442 Personal history of urinary calculi; R11.0 Nausea; R39.89 Other symptoms and signs involving the genitourinary system; R50.81 Fever presenting with conditions classified elsewhere
CPT/HCPCS: 36415; 71046; 74177; 80053; 80076; 81001; 81003; 83605; 83735; 85025; 85027; 86140; 87040; 87086; 93005; 99284; 99285; A9270; J0696; J1885; J2270; J2405; J2543; J3480; J7030; Q9967

== ENCOUNTER 2025-01-09 17:46 | Emergency (ER) | payer OTHER, SELFPAY ==
--- OUTSIDE RECORDS SUMMARY | 2025-01-09 17:49 | XMS_ITS | Clinical Summary ---
Author Organization [facility] Address [address] [place] [address] Care Team Providers Care On Site Construction Superintendent Name Role Phone Jorje Goodwin MD Unavailable [phone] Celina Espinoza MD Primary Care Provider + [...] on file Legal Sex Female 5:24 AM THEATRICAL PERFORMER Gender Identity Not on file Sexual Orientation Not on file Obstetrics History Last Filed Vital Signs Vital Sign Reading Time Taken Comments Blood Pressure 143/94 03/08/2022 4:15 PM CDT Pulse 99 03/08/2022 4:15 PM CDT Temperature 36.7 C (98.1 F) 08/21/2017 5:34 PM THEATRICAL PERFORMER Respiratory Rate - - Oxygen Saturation 98% 03/08/2022 4:15 PM CDT Inhaled Oxygen Concentration - - Weight 113.9 kg (251 lb) 03/08/2022 4:15 PM CDT Height 167 cm (5' 5.75) 08/21/2017 5:34 PM THEATRICAL PERFORMER Body Mass Index 40.82 08/21/2017 5:34 PM THEATRICAL PERFORMER Plan of Treatment Health Maintenance Due Date [...] Procedure Name Priority Date/Time Associated Diagnosis Comments NURSING INFORMATICS CLINICAL ANALYST THIN PREP PAP SCREEN IMAGED Routine 10/11/2020 2:30 PM THEATRICAL PERFORMER from Last 3 Months or Most Recently Relevant to Health Maintenance Results * NURSING INFORMATICS CLINICAL ANALYST THIN PREP PAP SCREEN IMAGED (10/11/2020 2:30 PM THEATRICAL PERFORMER) Case Report Gynecologic Cytology Report Case: [id number] Authorizing Provider: Ashlee Bonner MD Collected: 10/11/2020 1430 Ordering Location: [facility] Received: 10/13/2020 1041 First Screen: Tena Casillas Specimen: NURSING INFORMATICS CLINICAL ANALYST ThinPrep Vial Screening, Cervical/Vaginal 10/21/2020 5:13 PM THEATRICAL PERFORMER [facility] [employer] [facility]- ENTRAL LAB[facility] INTERPRETATION/ RESULT NEGATIVE FOR INTRAEPITHELIAL LESION OR MALIGNANCY (NIL) (none) 10/21/2020 5:13 PM THEATRICAL PERFORMER [facility] ENTRWI LABORATORY at 1713 THEATRICAL PERFORMER SPECIMEN ADEQUACY Satisfactory for evaluation Endocervical component present 10/21/2020 5:13 PM THEATRICAL PERFORMER [facility] HPV REQUEST HPV and PAP 10/21/2020 5:13 PM THEATRICAL PERFORMER [facility] EN[facility] Date of LMP 10/10/2020 10/21/2020 5:13 PM THEATRICAL PERFORMER [facility] EN[facility] LAB[facility] Last Pap Date 02/15/2018 10/21/2020 5:13 PM THEATRICAL PERFORMER [facility] ENTRAL LABOR[facility] Last Pap Result NIL 5:13 PM THEATRICAL PERFORMER [facility] EN[facility]AL LAB[facility] Comment:negative HPV Additional Information 10/21/2020 5:13 PM THEATRICAL PERFORMER [facility] EN[facility]AL LABOR[facility] Comment: Interpreted at [facility] Expert TA [facility] Central Laboratory - [address], [place] [address] Automated Review Successful 10/21/2020 5:13 PM THEATRICAL PERFORMER [facility] [employer] [facility] ENTRAL LABORATORY Comment:Specimen processed s uccessfully by automated fisher oyster device, ThinPrep Imaging System, [employer] ANCILLARY TESTING NURSING INFORMATICS CLINICAL ANALYST HPV Ordered, Please see separate report 10/21/2020 5:13 PM THEATRICAL PERFORMER [facility] LABORAT[facility]-C ENTRAL LABORATORY Note The pap test [...] pre-malignant and malignant lesions. 10/21/2020 5:13 PM THEATRICAL PERFORMER [facility] LABORAT[facility]-C ENTRAL LABORATORY Other (Cervical/Vagina l) 10/11/2020 2:30 PM THEATRICAL PERFORMER 10/13/2020 10:41 AM THEATRICAL PERFORMER us Ashlee Bonner MD PATHOLOGY/CYTOLOGY Final R esult [facility] LABORATORY-CENTRAL LABORATORY [address] [place] [address], from Last 3 Months or Most Recently Relevant to Health Maintenance Insurance [facility] MEDICAID Care Teams On Site Construction Superintendent Relationship Specialty Start Date End Date Celina Espinoza MD [address] [place] [address] PCP - General Family Practice 03/08/22 Jorje Goodwin MD [address] [place] [id number] Sports Medicine 12/12/11
--- OUTSIDE RECORDS SUMMARY | 2025-01-09 17:49 | XMS_ITS | Encounter Summary ---
Author Organization [facility] Address [address] [place] [address] Care Team Providers Care General Freight Agent Name Role Phone Elsewhere, Pcp Primary Care Provider Unavailabl e Reason for Visit * Reason Comments Genetic Testing Results: Negative Encounter Details Date Type Department Care Team ([facility] st Contact Info) Description 12/16/2024 Documentation Department of Medical Genetics in [place], [place] [address] [place] [address] Shelley De, Unlicensed [place] Genetic Testing Results: Negative Social History Tobacco Use Types Packs/Day Years Used Date Smoking Tobacco: Every Day Passive Smoke Exposure: Never Smokeless Tobacco: Never Alcohol Use Standard Drinks/Week Comments Yes 3 (1 standard drink = 0.6 oz pur e alcohol) [facility] Utilities Answer Date Recorded In the past 12 months has [employer], gas, oil, or water [employer] threatened to shut off services in your [...] your living situation today? I have a [facility] place to live 11/16/2024 Comments No Sex and Gender Information Value Date Recorded Sex Assigned at Female 11/16/2024 10:08 PM PLASTIC PROCESS TECHNICIAN Legal Sex Female 5:26 AM PLASTIC PROCESS TECHNICIAN Gender Identity Female 11/16/2024 10:08 PM PLASTIC PROCESS TECHNICIAN Sexual Orientation Straight 11/16/2024 10 :08 PM PLASTIC PROCESS TECHNICIAN documented as of this encounter Progress [...] Vang[facility] These results were communicated to the patient via the patient online services portal by our genetic counseling executive marketing assistant. RESULTS Germline genetic testing included sequence [...] differential, and a clinical exam with a thread tool grinder set up operator. Individuals in this family with a first- [...] screening recommendations, suchas those made by the [employer], do remain appropriate. FOLLOW UP/RECOMMENDATIONS [...] on filedocumented in this encounter Care Teams General Freight Agent Relationship Specialty Start Date End Date Elsewhere, Pcp PCP - General Family Medicine 08/01/20 documented as of this encounter
--- OUTSIDE RECORDS SUMMARY | 2025-01-09 17:49 | XMS_ITS | Encounter Summary ---
Author Organization [facility] Address [address] [place] [address] Care Team Providers Care R D Engineer Name Role Phone Elsewhere, Pcp Primary Care Provider Unavailabl e Encounter Details Date Type Department Care Team (Late st Contact Info) Description 11/26/2024 2:58 PM CDT - 11/26/2024 11:59 PM CDT Hospital Encounter Department of Laboratory Medicine in [address] [phone] Nanci Pena APRN, C.N.P., D.N.P., M.S. [address] [place] [phone] Cancer Breast Family History; Cancer Colon Family History; Cancer Brain Family History; Cancer Prostate Family History Discharge Disposition: Home or Self Care Social History Tobacco Use Types Packs/Day Years Used Date Smoking Tobacco: Every Day Passive Smoke Exposure: Never Smokeless Tobacco: Never Alcohol Use Standard Drinks/Week Comments Yes 3 (1 standard drink = 0.6 oz pur e alcohol) [facility] Utilities Answer Date Recorded In the past 12 months has e [employer], gas, oil, or water company threatened to [...] your living situation today? I have a [facility] place to live 11/16/2024 Comments No Sex and Gender Information Value Date Recorded Sex Assigned at Female 11/16/2024 10:08 PM SCHOOL BUS DRIVER/CUSTODIAN Legal Sex Female 5:26 AM SCHOOL BUS DRIVER/CUSTODIAN Gender Identity Female 11/16/2024 10:08 PM SCHOOL BUS DRIVER/CUSTODIAN Sexual Orientation Straight 11/16/2024 10 :08 PM SCHOOL BUS DRIVER/CUSTODIAN documented as of this encounter Medications at [...] is not a DNA banking service. If mcc, guaranteed specimen storage is required, DNA banking [...] D.N.P., M.S. LAB GENETIC TESTING Final Result [facility] [address] [place] [address], [facility] DTL [address] [place] [address] documented in this encounter Visit Diagnoses Diagnosis Cancer Breast Family History Cancer Colon Family History Cancer Brain Family History Cancer Prostate Family History documented in this encounter Care Teams R D Engineer Relationship Specialty Start Date End Date Elsewhere, Pcp PCP - General Family Medicine 08/01/20 documented as of this encounter
--- OUTSIDE RECORDS SUMMARY | 2025-01-09 17:49 | XMS_ITS | Encounter Summary ---
Author Organization [facility] Address [address] [place] [address] Care Team Providers Care Staff Toxicologist Name Role Phone Elsewhere, Pcp Primary Care Provider Unavailabl e Encounter Details Date Type Department Care Team (Late st Contact Info) Description 11/27/2024 8:15 AM CDT Lab RST RO LMP [address] [place] [phone] Nanci Pena APRN, C.N.P., D.N.P., M.S. [address] [place] [phone] Cancer Breast Family History; Cancer Colon Family History; Cancer Brain Family History; Cancer Prostate Family History Social History Tobacco Use Types Packs/Day Years Used Date Smoking Tobacco: Every Day Passive Smoke Exposure: Never Smokeless Tobacco: Never Alcohol Use Standard Drinks/Week Comments Yes 3 (1 standard drink = 0.6 oz pur e alcohol) [facility] Utilities Answer Date Recorded In the past 12 months has [employer], gas, oil, or water company threatened to [...] living situation today? I have a [facility] place to live 11/16/2024 Comments No Sex and Gender Information Value Date Recorded Sex Assigned at Female 11/16/2024 10:08 PM WIRE WEAVER CLOTH Legal Sex Female 5:26 AM WIRE WEAVER CLOTH Gender Identity Female 11/16/2024 10:08 PM WIRE WEAVER CLOTH Sexual Orientation Straight 11/16/2024 10 :08 PM WIRE WEAVER CLOTH documented as of this encounter Plan of Treatment Not on file documented as of this encounter Procedures Procedure Name Priority Date/Time Associated Diagnosis Comments [facility] [place] [employer] Routine 11/26/2024 3 :07 PM CDT documented in this encounter Results * [facility] P2P-Next (11/26/2024 3:07 PM CDT) Test Name Jerrica Custom Panel 12/03/2024 9:26 AM CDT [facility] Result SEE COMMENT 12/15/2024 9:32 AM CDT AMBR Comment: For final report, select Lab-Send Out Lab Results hyperlink below. 11/26/2024 3:07 PM CDT 12/03/2024 9:26 AM CDT Nanci Pena APRN, C.N.P., D.N.P., M.S. LAB MISC ORDERABLES Final Result [employer] [address] [place] [address], [facility]BR P2P-Next [address] [place] [address] documented in this encounter Visit Diagnoses Diagnosis Cancer Breast Family History Cancer Colon Family History Cancer Brain Family History Cancer Prostate Family History documented in this encounter Care Teams Staff Toxicologist Relationship Specialty Start Date End Date Elsewhere, Pcp PCP - General Family Medicine 08/01/20 documented as of this encounter
--- OUTSIDE RECORDS SUMMARY | 2025-01-09 17:49 | XMS_ITS | Clinical Summary ---
Author Organization [facility] Address [address] , [address] [place] [address] Phone Care Team Providers Care Institutional Nutrition Consultant Name Role [facility] Unavailable Unava ilable Conditions or Problems Problem Name Problem Code Onset Date Status Entry Date Provider Comment Standard Description Annotate Hand numbness 348188489 (SNOMED CT) Active Dmitry Warner MD Numbness of hand Elbow pain, unspecified 42862011 (SNOMED CT) Active Dmitry Warner MD Pain of elbow region Median neuropathy, right 758708088 (SNOMED CT) Active Dmitry Warner MD Median [...] Procedures Code Procedure Name Date Entry Date CPT-50804 Nerve Conduction 13 or more studies 05/24 CPT-26294 EMG with NCS (5+ muscles) - 1 limb 05/24 Vital Signs No information available. Immunizations No information available. Advance Directives No information available.
--- OUTSIDE RECORDS SUMMARY | 2025-01-09 17:49 | XMS_ITS | Encounter Summary ---
Author Organization [facility] Address [address] [place] [address] Care Team Providers Care Ocean Freight Agent Name Role Phone Elsewhere, Pcp Primary Care Provider Unavailabl e Encounter Details Date Type Department Care Team (Late st Contact Info) Description 11/21/2024 Results Follow-Up Breast Diagnostic Clinic in [place], [place] [address] [place] [phone] Celeste Casillas M.D. [address] [place] [phone] Pathology Review of Outside Material Social History Tobacco Use Types Packs/Day Years Used Date Smoking Tobacco: Every Day Passive Smoke Exposure: Never Smokeless Tobacco: Never Alcohol Use Standard Drinks/Week Comments Yes 3 (1 standard drink = 0.6 oz pur e alcohol) [facility] Utilities Answer Date Recorded In the past 12 months has [employer], gas, oil, or water [employer] threatened to shut off services in your [...] your living situation today? I have a [facility] place to live 11/16/2024 Comments No Sex and Gender Information Value Date Recorded Sex Assigned at Female 11/16/2024 10:08 PM LOSS CONTROL CONSULTANT Legal Sex Female 5:26 AM LOSS CONTROL CONSULTANT Gender Identity Female 11/16/2024 10:08 PM LOSS CONTROL CONSULTANT Sexual Orientation Straight 11/16/2024 10 :08 PM LOSS CONTROL CONSULTANT documented as of this encounter Plan of Treatment Not on file documented as of this encounter Visit Diagnoses Not on filedocumented in this encounter Care Teams Ocean Freight Agent Relationship Specialty Start Date End Date Elsewhere, Pcp PCP - General Family Medicine 08/01/20 documented as of this encounter
--- OUTSIDE RECORDS SUMMARY | 2025-01-09 17:49 | XMS_ITS | Encounter Summary ---
Author Organization [facility] Address [address] [place] [address] Care Team Providers Care Stator Winder Name Role Phone Elsewhere, Pcp Primary Care Provider Unavailabl e Encounter Details Date Type Department Care Team (Late st Contact Info) Description 11/12/2024 Orders Only Breast Diagnostic Clinic in [place], [place] [address] [place] [phone] Celeste Casillas M.D. [address] [place] [phone] Other Skin Changes (Primary Dx) Social History Tobacco Use Types Packs/Day Years Used Date Smoking Tobacco: Every Day [facility] Utilities Answer Date Recorded In the [...] your living situation today? I have a [facility] place to live 11/16/2024 Comments Unknown Sex and Gender Information Value Date Recorded Sex Assigned at Female 11/16/2024 10:08 PM CITY PLANT SUPERVISOR Legal Sex Female 5:26 AM CITY PLANT SUPERVISOR Gender Identity Female 11/16/2024 10:08 PM CITY PLANT SUPERVISOR Sexual Orientation Straight 11/16/2024 10 :08 PM CITY PLANT SUPERVISOR documented as of this encounter Plan of Treatment Not on file documented as of this encounter Results * Pathology Review of Outside Material (10/01/2024 10:45 AM CITY PLANT SUPERVISOR) 11/20/2024 3:33 PM CITY PLANT SUPERVISOR PDRM Report electronically signed by Hollie Beltran M.D. I verify that I have examined all relevant slides/materials for the specimen(s) and rendered or confirmed the diagnosis. A comprehensive consult with review of records that included imaging was performed to assist in the diagnostic assessment of the case. 11/20/2024 3:33 PM CITY PLANT SUPERVISOR PDRM Material Received A. [id number]: Left breast 7 stained slides 11/20/2024 3:33 PM CITY PLANT SUPERVISOR PDRM Interpretation FINAL DIAGNOSIS A. Left breast, [id number], 10/01/2024: Skin with focal foreign-body type granulomatous inflammation COMMENT Within the mid-dermis is a collection of foreign-body type granulomas. No polarizable material is identified. Clinical pathologic correlation is recommended. Digital imaging was used in the diagnostic assessment of this case. 11/20/2024 3:33 PM CITY PLANT SUPERVISOR PDRM Varies 10/01/2024 10:4 5 AM CITY PLANT SUPERVISOR 11/12/2024 5:46 PM CITY PLANT SUPERVISOR us Celeste Isaac M.D. LAB SURG PATH ORDERAB LES Final Result [facility] [address] [place] [address], [facility] PDRM [address] [place] [phone] documented in this encounter Visit Diagnoses Diagnosis Other Skin Changes- Primary documented in this encounter Care Teams Stator Winder Relationship Specialty Start Date End Date Elsewhere, Pcp PCP - General Family Medicine 08/01/20 documented as of this encounter
--- OUTSIDE RECORDS SUMMARY | 2025-01-09 17:50 | XMS_ITS | Clinical Summary ---
Author Organization [facility] Address [address] [place] [address] Care Team Providers Care Oil Gauger Name Role Phone Elsewhere, Pcp Primary Care Provider Unavailabl e Source Comments Patient records contain information from all sites at [facility]. For routine questions regarding patient records, call [phone] during business hours, M-F 8:00 AM - 5:00 PM Central Time. Record requests for emergency care only can be directed to [phone] at any time.[facility] Allergies Active Allergy Reactions Criticality Noted Date [...] Results Follow-Up Department of Medical Genetics in [place], [place] [address] [place] [address] Shelley De, Unlicenszelalem GOLDSMITH [facility] Genetics 12/16/2024 Documentation Department of Medical Genetics in [place], [place] [address] [phone] Shelley De, [place] Genetic Testing Results: Negative 11/27/2024 8:15 AM CDT Lab RST RO LMP [address] [phone] Nanci Pena APRN, C.N.P., Corina.N.P., M.S. Cancer Breast Family History; Cancer Colon Family History; Cancer Brain Family History; Cancer Prostate Family History 11/26/2024 2:58 PM CDT - 11/26/2024 11:59 PM CDT Hospital Encounter Department of Laboratory Medicine in [address] [phone] Nanci Pena APRN, C.N.P., Corina.N.P., M.S. Cancer Breast Family History; Cancer Colon Family History; Cancer Brain Family History; Cancer Prostate Family History Discharge Disposition: Home or Self Care 11/21/2024 Results Follow-Up Breast Diagnostic Clinic in [place], [place] [address] [phone] Celeste Casillas M.D. Pathology Review of Outside Material 11/18/2024 10:30 AM STOCK DEALER Telemedicine Department of Medical Genetics in [place], [place] [address] [phone] Celeste Casillas M.D. Rogen, Kara R MFlorecitaSFlorecita, [facility] Cancer Colon Family History (Primary Dx); Cancer Breast Family History; Cancer Brain Family History; Cancer Prostate Family History 11/18/2024 Clinical Communication Department of Medical Genetics in [place], [place] [address] [place] [phone] Vivian Estes, M.SFlorecita, [facility] Ambry:CAMMIE 11/17/2024 10:30 AM STOCK DEALER Comprehensive Visit Breast Diagnostic Clinic in [place], [place] [address] [phone] Celeste Casillas M.D. Cancer Breast Family History (Primary Dx); Mammographic Heterogeneous Density, Bilateral Breasts 11/14/2024 3:30 PM STOCK DEALER Clinical Communication Virtual Review in [place], [place] [address] [place] [phone] Pre-visit Intake 11/12/2024 3:30 PM STOCK DEALER Lab RST RO LMP [address] [phone] Celeste Casillas M.D. Other Skin Changes 11/12/2024 Orders Only Breast Diagnostic Clinic in [address] [phone] Celeste Casillas M.D. Other Skin Changes (Primary Dx) 10/24/2024 9:25 AM STOCK DEALER Ancillary Procedure Department of Radiology in [address] [phone] Celeste Casillas M.D. Pain Breast; Cancer Breast Family History 10/24/2024 8:35 AM STOCK DEALER Ancillary Procedure Department of Radiology in [address] [phone] Celeste Casillas M.D. Pain Breast; Cancer Breast Family History 10/22/2024 Clinical Communication Breast Diagnostic Clinic in [place], [place] [address] [phone] Celeste Casillas M.D. OSM - Outside Materials [...] 0.6 oz pur e alcohol) [facility] AssayMetricsities Answer Date Recorded In the past 12 months has e [employer], gas, oil, or water [employer] threatened to shut off services in your [...] your living situation today? I have a [facility] place to live 11/16/2024 Comments No Sex and Gender Information Value Date Recorded Sex Assigned at Female 11/16/2024 10:08 PM STOCK DEALER Legal Sex Female 5:26 AM STOCK DEALER Gender Identity Female 11/16/2024 10:08 PM STOCK DEALER Sexual Orientation Straight 11/16/2024 10 :08 PM STOCK DEALER Last Filed Vital Signs Vital Sign Reading Time Taken Comments Blood Pressure 138/87 11/17/2024 10:26 AM STOCK DEALER Pulse 94 11/17/2024 10:26 AM STOCK DEALER Temperature - - Respiratory Rate - - Oxygen Saturation - - Inhaled Oxygen Concentration - - Weight 92.8 kg (204 lb 9.4 oz) 11/17/2024 10:26 AM STOCK DEALER Height 169.2 cm (5' 6.61) 11/17/2024 10:26 AM C Body Mass Index 32.42 11/17/2024 10:26 AM STOCK DEALER Plan of Treatment Health Maintenance Due Date Last Done Comments HIV Screening 1987 Hepatitis C Screening 1987 Lipid (Cholesterol) Screening 1987 Tobacco Cessation counseling 1987 Pneumococcal vaccine (0-49 years) (1 of 2 - PCV) 2006 COVID-19 Vaccine (3 - season) 2024 10/26/2020, 10/05/2020 Influenza Vaccine (#1) [...] this topic Medical Devices Implanted Type Area Strategy Associate Device Identifier Shelf Expiration Date Model / Serial / Lot Bladder Sling Mesh or Patch Bladder Procedures Procedure Name Priority Date/Time Associated Diagnosis Comments [facility] Routine 11/26/2024 3 :07 PM CDT CRYOPRESERVATION FOR MOLEC STUDIES Routine 11/26/2024 3:07 PM CDT Cancer Breast Family History Cancer Colon Family History Cancer Brain Family History Cancer Prostate Family History INTERPRETATION OF OUTSIDE BREAST IMAGING RAD - Routine (most inpatients and all outpatients) 10/24/2024 9:25 AM STOCK DEALER Pain Breast Cancer Breast Family History INTERPRETATION OF OUTSIDE BREAST IMAGING RAD - Routine (most inpatients and all outpatients) 10/24/2024 9:02 AM STOCK DEALER Pain Breast Cancer Breast Family History PATHOLOGY COMMUNITY OUTREACH DIRECTOR CYTOLOGY Routine 7:46 PM STOCK DEALER from Last 3 Months or Most Recently Relevant to Health Maintenance Results * [facility] (11/26/2024 3:07 PM CDT) Test Name [employer] Custom Panel 12/03/2024 9:26 AM CDT AMBR Result SEE COMMENT 12/15/2024 9:32 AM CDT AM[facility] Comment: For final report, select Lab-Send Out Lab Results hyperlink below. 11/26/2024 3:07 PM CDT 12/03/2024 9:26 AM CDT Nanci Pena APRN, C.N.P., D.N.P., M.S. LAB [facility] ORDERABLES Final Result [facility] [address] [place] [address], [facility] AMBR [facility] [address] [place] [address] * Cryopreservation for Molecular Genetic Studies (11/26/2024 [...] is not a DNA banking service. If intermediate project manager, guaranteed specimen storage is required, DNA banking [...] 3:07 PM CDT 11/27/2024 7:20 AM CDT Nanci Pena APRN, C.N.P., D.N.P., M.S. LAB GENETIC TESTING Final Result [facility] [address] [place] [address], [facility] DTL [address] [place] [address] * Interpretation of Outside Breast Imaging (10/24/2024 9:25 AM STOCK DEALER) Only the most recent of2 resultswithin the time period is included. Anatomical Region Laterality Modality Breast, Breast Imaging RST L OS, Breast Imaging ARZ LOS, Breast Imaging FLA LOS, Other N/A Mammography Impressions 11/05/2024 8:15 AM STOCK DEALER 1. No mammographic or sonographic findings of malignancy in either breast. 2. Recommend annual screening mammography and clinical management of the breast pain. Narrative 11/05/2024 8:15 AM STOCK DEALER EXAM: INTERPRETATION OF OUTSIDE BREAST IMAGING, INTERPRETATION [...] BI PROCEDURES Fin al Result * Pathology COMMUNITY OUTREACH DIRECTOR Cytology (09/30/2003 7:46 PM STOCK DEALER) 09/30/2003 7:46 PM STOCK DEALER 09/30/2003 7:46 PM STOCK DEALER [facility] - 09/30/2003 7:46 PM STOCK DEALER 09/29/2003 Cytology Gynecological ([id number]) Requested By: Matilde Cabrera M.D. [id number] DIAGNOSIS: A. Cervical/Endocervical Smear Screen: Satisfactory for evaluation. Negative for intraepithelial lesion or malignancy. 10/01/2003 MATTIE Moraels (ASCP) Elizabeth Teixeira M.D. [id number] SPECIMEN DESCRIPTION: Procedure Note 12/08/2017 09/29/2003 Cytology Gynecological ([id number]) Requested By: Matilde Cabrera M.D. [id number] DIAGNOSIS: A. Cervical/Endocervical Smear Screen: Satisfactory for evaluation. Negative for intraepithelial lesion or malignancy. 10/01/2003 MATTIE Morales (ASCP) Elizabeth Teixeira M.D. [phone] SPECIMEN DESCRIPTION: us Historical Provider LAB PAP COPATH ORDERABLES Fi nal Result [facility] [address] [place] [address], [facility] from Last 3 Months or Most Recently Relevant to Health Maintenance Insurance [employer] Care Teams Oil Gauger Relationship Specialty Start Date End Date Elsewhere, Pcp PCP - General Family Medicine 08/01/20
--- OUTSIDE RECORDS SUMMARY | 2025-01-09 17:50 | XMS_ITS | Encounter Summary ---
Author Organization [facility] Address [address] [place] [address] Care Team Providers Care Leather Parts Matcher Name Role Phone Elsewhere, Pcp Primary Care Provider Unavailabl e Encounter Details Date Type Department Care Team (Late st Contact Info) Description 12/16/2024 Results Follow-Up Department of Medical Genetics in [place], [place] [address] [place] [phone] Shelley De, Unlicensed [place] [facility] Genetics Social History Tobacco Use Types Packs/Day Years Used Date Smoking Tobacco: Every Day Passive Smoke Exposure: Never Smokeless Tobacco: Never Alcohol Use Standard Drinks/Week Comments Yes 3 (1 standard drink = 0.6 oz pur e alcohol) [facility] Utilities Answer Date Recorded In the past 12 months has [facility] [employer], gas, oil, or water [employer] [address] threatened to shut off services in your [...] Date Recorded Dental: Regular Dentist Yes 11/17/19 25 Employment Answer Date Recorded Employment status Employed and actively working without restrictions 11/16/2024 Housing Stability Answer Date Recorded What is your living situation today? I have a [facility] place to live 11/16/2024 Comments No Sex and Gender Information Value Date Recorded Sex Assigned at Female 11/16/2024 10:08 PM EXECUTIVE DIRECTOR OF MARKETING Legal Sex Female 5:26 AM EXECUTIVE DIRECTOR OF MARKETING Gender Identity Female 11/16/2024 10:08 PM EXECUTIVE DIRECTOR OF MARKETING Sexual Orientation Straight 11/16/2024 10 :08 PM EXECUTIVE DIRECTOR OF MARKETING documented as of this encounter Plan of Treatment Not on file documented as of this encounter Visit Diagnoses Not on filedocumented in this encounter Care Teams Leather Parts Matcher Relationship Specialty Start Date End Date Elsewhere, Pcp PCP - General Family Medicine 08/01/20 documented as of this encounter
[2025-01-09 18:00] VITALS: BP 136/92; PULSE 105; RESP 20; TEMP 36.6; O2SAT 98; BMI 31.2
--- NOTE | 2025-01-09 18:22 | CRLHL7_ITS ---
For Patients: As a result of the Century Cures Act, medical imaging exams and procedure reports are released immediately into your electronic medical record. You may view this report before your referring provider. If you have questions, please contact your health care provider. INDICATION: LUQ ABD PAIN, FLANK PAIN. HX STONES. TECHNIQUE: CT abdomen and pelvis acquired with 97 cc Isovue 370 IV contrast. COMPARISON: CT chest abdomen pelvis dated 01/01/2025. FINDINGS: Lower chest: Unremarkable. Liver: Unremarkable. Normal in size and attenuation. No suspicious masses. Gallbladder and bile ducts: Unremarkable. No stones or inflammation. No biliary dilatation. Pancreas: Unremarkable. No mass or inflammation. Spleen: Unremarkable. Normal in size. No masses. Adrenal glands: Unremarkable. No nodules. Kidneys: Redemonstrated nonobstructive bilateral renal calculi. No ureteral calculi or hydronephrosis. The previously evident perinephric and periureteral inflammatory changes have resolved. GI tract: Unremarkable. Normal in caliber. No sign of mass or inflammation. Normal appendix. Vasculature: Abdominal aorta is normal in caliber. Mesenteric arteries are patent. Lymph nodes: No lymphadenopathy. Peritoneum/Abdominal Wall: Unremarkable. No sign of mass or infiltration. No free air or significant free fluid. Pelvis: Hysterectomy Bones: Unremarkable for age. IMPRESSION: 1. No acute findings in the abdomen or pelvis. 2. The previously evident perinephric and periureteral inflammatory changes are no longer visualized. Redemonstrated nonobstructive bilateral renal calculi. No evident ureteral calculi or hydroureteronephrosis. Please note that all CT scans at this facility use dose modulation, iterative reconstruction, and/or weight-based dosing when appropriate to reduce radiation dose to as low as reasonably achievable. Dictated by Eder James MD @ 01/09/2025 8:23:04 PM (Electronically Signed)
--- NOTE | 2025-01-09 18:38 | ED.ABDPAIN ---
HPI - Abdominal Pain General Date Seen: 01/09/25 Chief Complaint: Abdominal Pain Stated Complaint: Discharged from [facility], nausea pain Time Seen by Provider: 01/09/25 17:52 Source: patient Mode of arrival: ambulatory Limitations: no limitations History of Present Illness HPI narrative: Patient is a 39 year old female presenting to the emergency department for current abdominal pain. She has pain left upper quadrant wrapping around to her left flank. She had this pain last week was admitted to the hospital for pyelonephritis. At that time she had bilateral pyelonephritis and started antibiotics. She was discharged 4 days ago she states she was feeling great. She continued on home antibiotics and finished antibiotics today. This morning around 04:30 she started having left upper quadrant and left flank pain.. She states this feels just like her previous pain other than the fact that it is only on the left side this time. Has been having some nausea with Zofran has been helping. Ibuprofen has somewhat manage the pain. Has not had any fevers but has noted chills. Has also been having headache which improved with the ibuprofen. States she has been having pain with urination ever since she had a bladder sling placed 2 years ago. She has been having issues with recurrent UTI since then. In her stool speak to shortness improved to the area, constipation, vision changes, weakness, numbness. Related Data Home Medications ?Medication ?Instructions ?Recorded ?Confirmed cholecalciferol (vitamin D3) 10 10 mcg PO DAILY 03/17/22 01/01/25 mcg (400 unit) capsule epinephrine 0.3 mg/0.3 mL 0.3 mg IM PRN PRN 03/17/22 01/01/25 injection, auto-injector phentermine 37.5 mg tablet 37.5 mg PO DAILY 01/29/24 01/01/25 bupropion HCl 150 mg 24 hr tablet, 150 mg PO DAILY 01/01/25 01/01/25 extended release cetirizine 10 mg tablet 10 mg PO BID 01/01/25 01/01/25 losartan 50 mg tablet 50 mg PO DAILY 01/01/25 01/01/25 Previous Rx's ?Medication ?Instructions ?Recorded sertraline 100 mg tablet 150 mg (1.5 x 100 mg) PO DAILY 11/11/24 #135 tabs acetaminophen 325 mg tablet 650 mg (2 x 325 mg) PO QID PRN 01/04/25 #100 tabs ibuprofen 200 mg tablet 400 mg (2 x 200 mg) PO QID PRN #30 01/04/25 tabs levofloxacin 750 mg tablet 750 mg PO DAILY #5 tabs 01/04/25 ondansetron 4 mg disintegrating 4 mg PO Q6H PRN nausea and 01/04/25 tablet vomiting #7 tabs Allergies Allergy/AdvReac Type Severity Reaction Status Date / Time mupirocin Allergy Intermediate skin burn Verified 01/09/25 19:29 Review of Systems Status of ROS Reports: 10 or more systems reviewed and unremarkable except as noted in History and below [facility] Medical History History of kidney stones ?Z87.442 - Personal history of urinary calculi (ICD-10) Anaphylaxis ?T78.2XXA - Anaphylactic shock, unspecified, initial encounter (ICD-10) Depression ?F32.A - Depression, unspecified (ICD-10) Recurrent urticaria ?L50.8 - Other urticaria (ICD-10) Overuse syndrome of right hand ?S66.911A - Strain of unspecified muscle, fascia and tendon at wrist and hand level, right hand, initial encounter (ICD-10) De Quervain's tenosynovitis, right ?M65.4 - Radial styloid tenosynovitis [de Quervain] (ICD-10) RUQ abdominal pain ?R10.11 - Right upper quadrant pain (ICD-10) Family history of breast cancer ?Z80.3 - Family history of malignant neoplasm of breast (ICD-10) Breast lump in upper outer quadrant ?N63.0 - Unspecified lump in unspecified breast (ICD-10) COVID-19 ?U07.1 - COVID-19 (ICD-10) Mixed stress and urge urinary incontinence ?N39.46 - Mixed incontinence (ICD-10) BMI 39.0-39.9,adult ?Z68.39 - Body mass index [BMI] 39.0-39.9, adult (ICD-10) History of severe pre-eclampsia ?Z87.59 - Personal history of other complications of , childbirth and the puerperium (ICD-10) Normal vaginal delivery ?O80 - Encounter for full-term uncomplicated delivery (ICD-10) DELONTE (stress urinary incontinence, female) ?N39.3 - Stress incontinence (female) (male) (ICD-10) Hemorrhoids ?K64.9 - Unspecified hemorrhoids (ICD-10) Urticaria ?L50.9 - Urticaria, unspecified (ICD-10) Temporomandibular joint disorder ?M26.609 - Unspecified temporomandibular joint disorder, unspecified side (ICD-10) Hypertension (~10/2021) ?I10 - Essential (primary) hypertension (ICD-10) History of pre-eclampsia ?Z87.59 - Personal history of other complications of , childbirth and the puerperium (ICD-10) Generalized anxiety disorder ?F41.1 - Generalized anxiety disorder (ICD-10) Fluttering sensation of heart ?R00.2 - Palpitations (ICD-10) Endometriosis ?N80.9 - Endometriosis, unspecified (ICD-10) Chronic interstitial cystitis (~2008) ?N30.10 - Interstitial cystitis (chronic) without hematuria (ICD-10) Surgical History History of carpal tunnel surgery of right wrist (06/28/23) ?Z98.890 - Other specified postprocedural states (ICD-10) History of suburethral sling procedure (09/05/22) ?Z98.890 - Other specified postprocedural states (ICD-10) S/P laparoscopic hysterectomy (09/05/22) ?Z90.710 - Acquired absence of both cervix and uterus (ICD-10) S/P hemorrhoidectomy (09/05/22) ?Z98.890 - Other specified postprocedural states (ICD-10) ?Z87.19 - Personal history of other diseases of the digestive system (ICD-10) Hx of echocardiogram (2015) ?Z92.89 - Personal history of other medical treatment (ICD-10) History of tonsillectomy (~1997) ?Z90.89 - Acquired absence of other organs (ICD-10) History of sinus surgery (~08/2016) ?Z98.890 - Other specified postprocedural states (ICD-10) History of laparoscopy (05/2015) ?Z98.890 - Other specified postprocedural states (ICD-10) History of section (02/27/19) ?Z98.891 - History of uterine scar from previous surgery (ICD-10) Family History Mother Anxiety disorder Family history of breast cancer gene mutation in first degree relative High blood pressure Brain cancer Brother Asthma Maternal Grandmother Breast cancer, Onset Age: 40 Brain cancer Family/Other Breast cancer Type 1 diabetes mellitus Colon cancer Paternal Grandfather Coronary artery disease Heart disease Stroke Maternal Grandfather Coronary artery disease Heart disease Brother Heart murmur Father High blood pressure Paternal Grandmother Colon cancer Social History Narrative: , 3 kids, Nonsmoker, used to smoke 1 pack per week for 10 years Social alcohol use Does not exercise regularly Cis-gender, heterosexual woman Relationship status: to a male partner. 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 Education: 4 year college degree. Tobacco use: Former smoker, quit during her 1st in 2008. E-cigarettes: No Alcohol: Yes, 6-10 servings/month. Illicit/recreational drug use: No Concern for safety at home or work: No Desires to discuss abuse: No Exercise: No Dietary restriction: No What is your current living situation?: I presently have a place to live Problems where you live: no known problems Problems where you live details: NA In the past 12 months, utilities in danger of being shut off: no In past 12 months, lack of transportation kept you from medical appts, meetings, work, or getting things needed for daily living: yes In the past 12 mos, have been you worried that your food would run out before you had money to buy more?: never true In the past 12 mos, the food you bought just didn't last and you didn't have money to buy more?: never true Highest level of school completed/degree received: Associate degree: occupational, technical, vocational program Smoking Status: Former smoker What tobacco products do you use: cigarettes Smoking quit date/years: >15 years ago Do you use any of these nicotine containing products: Vaping Products Nicotine containing products detail: vape with social drinking Second hand tobacco smoke exposure: No How often do you have a drink containing alcohol: 2-4 times a month Alcohol type: hard liquor and other Alcohol type details: tavia How many standard drinks containing alcohol do you have on a typical day: 3 or 4 How often do you have six or more drinks on one occasion: Never AUDIT-C Alcohol total score: 3 Non-prescribed substance use: marijuana (any form) Caffeine: Yes (coffee) How often does anyone, including family, friends and others, physically hurt you: never How often does anyone, including family, friends and others, insult or talk down to you: never How often does anyone, including family, friends and others, threaten you with harm: never How often does anyone, including family, friends and others, scream or curse at you: never Are you using contraception or practicing any form of control: Yes ( had vasectomy) service: No Health Related Social Needs: transportation insecurity (Z59.82) Exam Narrative: Exam Narrative: Const: Well-nourished, Well-developed, in moderate distress Eyes: PERRL, no conjunctival injection, and symmetrical lids HENT: Atraumatic external nose and ears. Moist mucous membranes. Neck: Symmetric, trachea midline, No thyromegaly. CVS: RRR, No murmurs or gallops. Peripheral pulses 2+ and equal in all extremities RESP: Unlabored respiratory effort. Clear to auscultation bilaterally. GI: Left upper quadrant tenderness, Nondistended, some guarding noted to left upper quadrant. Rebound tenderness left upper quadrant. No CVA tenderness. MSK:Extremities w/o deformity, Normal Active ROM Skin: Warm, Dry. No rashes or lesions. Neuro: Normal Muscle tone, No focal neurological deficits. Psych: Awake, Alert, & Oriented x3. Appropriate mood and affect. Const: Vital Signs, click to edit/add: Vital Signs - 24 hr 01/09/25 18:00 01/09/25 19:44 01/09/25 19:45 Temperature 97.9 F Pulse Rate 86 87 Pulse Rate [Pulse Oximeter] 105 H Respiratory Rate 20 Blood Pressure Blood Pressure [Ri ght Upper Arm] 136/92 H Pulse Oximetry 98 96 98 Oxygen Delivery Me thod Room Air 01/09/25 19:49 Temperature Pulse Rate 85 Pulse Rate [Pulse Oximeter] Respiratory Rate Blood Pressure 129/82 Blood Pressure [Ri ght Upper Arm] Pulse Oximetry 98 Oxygen Delivery Me thod Course Vital Signs Vital signs: Initial Vital Signs Temperature 97.9 F 01/09/25 18:00 Temperature Source Temporal Artery Scan 01/09/25 18:00 Pulse Rate 105 H 01/09/25 18:00 Respiratory Rate 20 01/09/25 18:00 Blood Pressure 136/92 H 01/09/25 18:00 Blood Pressure Mean 106 H 01/09/25 18:00 Blood Pressure Position High-Fowlers 01/09/25 18:00 Pulse Oximetry 98 01/09/25 18:00 Oxygen Delivery Method Room Air 01/09/25 18:00 Vital Signs Temperature 97.9 F 01/09/25 18:00 Pulse Rate 105 H 01/09/25 18:00 Respiratory Rate 20 01/09/25 18:00 Blood Pressure 136/92 H 01/09/25 18:00 Pulse Oximetry 98 01/09/25 18:00 Oxygen Delivery Method Room Air 01/09/25 18:00 Temperature 97.9 F 01/09/25 18:00 Pulse Rate 85 01/09/25 19:49 Respiratory Rate 20 01/09/25 18:00 Blood Pressure 129/82 01/09/25 19:49 Pulse Oximetry 98 01/09/25 19:49 Oxygen Delivery Method Room Air 01/09/25 18:00 Medications Administered Medications: Discontinued Medications Generic Name Dose Route Start Last Admin Trade Name Freq PRN Reason Stop Dose Admin Morphine Sulfate 4 mg 01/09/25 18:22 01/09/25 19:41 Morphine 4 Mg/Ml Inj IVP 01/09/25 18:23 4 mg ONCE ONE Administration Ondansetron HCl 4 mg 01/09/25 18:22 01/09/25 19:41 Ondansetron 2 Mg/Ml Inj IVP 01/09/25 18:23 4 mg ONCE ONE Administration MDM - Abdominal Pain MDM Narrative Medical decision making narrative: Patient is a 39-year-old female presenting to the emergency department for left upper quadrant abdominal pain patient states this feels just like her previous pyelonephritis. Previously she had been you the CT scan a diagnosis of pyelonephritis. CT scan was again ordered. This will also help look to see if there is any kind the splenic abnormality. Zofran was given for her nausea and morphine for her pain. She is tachycardic. With the history I will order a lactate and blood cultures for sepsis workup. Also order lipase, CBC, CMP, viral swabs, urinalysis. Patient's lab work shows no concerning findings. Liver enzymes appear to be at baseline. Her previous UTI is now fully cleared based on urinalysis. CT scan shows no signs of pyelonephritis any more. She is feeling much better after the medication. He I believe this may be related to a rebound pain from the pyelonephritis. She is also moderately constipated. She states she has been having normal bowel movements her last bowel movement was yesterday. At this time I feel comfortable discharging her home with oxycodone for pain management in more Zofran for nausea. She is agreeable for this plan Lab Data Labs: Lab Results 01/09/25 01/09/25 Range/Units 18:23 19:00 WBC 8.73 (4.50-11.00) K/uL RBC 5.17 (4.00-5.20) m/uL Hgb 14.0 (12.0-16.0) gm/dL Hct 42.3 (33.0-51.0) % MCV 82 (80-100) fL MCH 27 (26-34) pg MCHC 33 (32-36) gm/dL RDW Coeff of [place] 13.4 (11.5-15.5) % Plt Count 364 (140-440) K/uL Neut % (Auto) 60.0 (42.0-72.0) % Lymph % (Auto) 29.1 (20-44) % [place] % (Auto) 8.6 (0.0-11.0) % Eos % (Auto) 0.7 (0.0-7.0) % Baso % (Auto) 0.2 (0.0-3.0) % Neut # (Auto) 5.24 (1.7-7.0) K/uL Lymph # (Auto) 2.54 (0.90-2.90) K/uL [place] # (Auto) 0.80 (0.00-0.90) K/UL Eos # (Auto) 0.06 (0.00-0.50) K/uL Baso # (Auto) 0.02 (0.00-0.30) K/uL Abs Immat Gran (auto) 0.12 (0.00-0.30) K/uL Imm/Tot Granulo (auto) 1.4 % Sodium 139 (135-149) mmol/L Potassium 3.8 (3.6-5.1) mmol/L Chloride 103 (96-114) mmol/L Carbon Dioxide 26 (20-32) mmol/L Anion Gap 10 (7-15) mEq/L BUN 16 (5-24) mg/dL Creatinine 0.9 (0.5-1.5) mg/dL Estimated Creat Clear 83.23 Estimated GFR 84 ml/min Glucose 77 (60-115) mg/dL Lactate 1.3 (0.5-1.9) mmol/L Calcium 9.2 (8.4-10.6) mg/dL Total Bilirubin 0.4 (0.1-1.5) mg/dL AST 49 H (12-35) U/L ALT 58 H (4-35) U/L Alkaline Phosphatase 72 (40-150) U/L Total Protein 6.9 (6.0-8.3) g/dL Albumin 4.3 (3.3-5.0) g/dL Lipase 89 (23-300) U/L Urine Color Yellow (Yellow) Urine Appearance Clear (Clear) Urine pH 7.0 (5.0-8.5) Ur Specific [place] 1.025 (1.000-1.030) Urine Protein Negative (Negative) Urine Glucose (UA) Negative (Negative) Urine Ketones Negative (Negative) Urine Blood Negative (Negative) Urine Nitrite Negative (Negative) Urine Bilirubin Negative (Negative) Urine Urobilinogen 0.2 (0.2-1.0) Ur Leukocyte Esterase Negative (Negative) Urine RBC 0-2 (0-2) Urine WBC 0-2 (0-5) Ur Squamous Epith Cells Few (None-Few) Urine Bacteria None (None) SARS-CoV-2 (PCR) Negative SARS-CoV-2 (Negative) Influenza Type A (PCR) Negative PCR FLU A (Negative) Influenza Type B (PCR) Negative PCR FLU B (Negative) RSV (PCR) Negative PCR RSV (Negative) Imaging Data CT scan abdomen and pelvis: Attestation: I have reviewed the pertinent imaging results. Radiologist's impression: 1. No acute findings in the abdomen or pelvis. 2. The previously evident perinephric and periureteral inflammatory changes are no longer visualized. Redemonstrated nonobstructive bilateral renal calculi. No evident ureteral calculi or hydroureteronephrosis. Please note that all CT scans at this facility use dose modulation, iterative reconstruction, and/or weight-based dosing when appropriate to reduce radiation dose to as low as reasonably achievable. Dictated by Eder James MD @ 01/09/2025 8:23:04 PM Discharge Plan Discharge Clinical Impression: Flank pain Constipation Qualifiers: Constipation type: unspecified constipation type Qualified Code(s): K59.00 - Constipation, unspecified Patient Disposition: Home, Self-Care Condition: Improved Instructions: Flank Pain (ED) Additional Instructions: I do believe your pain isolated to rebound pain pyelonephritis. Should resolve over the next couple days. If it becomes unbearable return for re-evaluation. Take the oxycodone as needed for pain. You can also take ibuprofen. Oxycodone and Zofran prescribed via instymeds. Prescriptions: No Action epinephrine 0.3 mg/0.3 mL auto-injector 0.3 mg IM PRN PRN cholecalciferol (vitamin D3) 10 mcg (400 unit) capsule 10 mcg PO DAILY phentermine 37.5 mg tablet 37.5 mg PO DAILY losartan 50 mg tablet 50 mg PO DAILY bupropion HCl 150 mg tablet extended release 24 hr 150 mg PO DAILY cetirizine 10 mg tablet 10 mg PO BID ondansetron 4 mg tablet,disintegrating 4 mg PO Q6H PRN (Reason: nausea and vomiting) Qty: 7 0RF levofloxacin 750 mg tablet 750 mg PO DAILY Qty: 5 0RF ibuprofen 200 mg tablet 400 mg PO QID PRNQty: 30 0RF acetaminophen 325 mg tablet 650 mg PO QID PRNQty: 100 0RF sertraline 100 mg tablet 150 mg PO DAILY Qty: 135 0RF Follow Up/Referrals: Celina Espinoza MD [Primary Care Provider] - Stand Alone Forms: M.A. Transportation Services Info Instructions
[2025-01-09 18:39] LABS: Appearance Urine Clear (Clear); Bilirubin Urine Negative (Negative); Blood Urine Negative (Negative); Color Urine Yellow (Yellow); Glucose Urine Negative (Negative); Ketones Urine Negative (Negative); Leukocyte Esterase Urine Negative (Negative); Nitrite Urine Negative (Negative); Protein Urine Negative (Negative); Specific Gravity Urine 1.025 (1.000-1.030); Urobilinogen Urine 0.2 (0.2-1.0)
--- OUTSIDE RECORDS SUMMARY | 2025-01-09 18:39 | XMS_ITS | Clinical Summary ---
Author Organization [facility] Address [address] [place] [address] Care Team Providers Care Special Programs Director Name Role Phone Elsewhere, Pcp Primary Care Provider Unavailabl e Source Comments Patient records contain information from all sites at [facility]. For routine questions regarding patient records, call [phone] during business hours, M-F 8:00 AM - 5:00 PM Central Time. Record requests for emergency care only can be directed to [phone] at any time.[facility] Allergies Active Allergy Reactions Criticality Noted Date [...] Results Follow-Up Department of Medical Genetics in [place], [place] [address] [place] [address] Shelley De, Unlicenszelalem GOLDSMITH [facility] Genetics 12/16/2024 Documentation Department of Medical Genetics in [place], [place] [address] [place] [phone] Shelley De, [place] Genetic Testing Results: Negative 11/27/2024 8:15 AM CDT Lab RST RO LMP [address] [place] [phone] Nanci Pena APRN, C.N.P., Corina.N.P., M.S. Cancer Breast Family History; Cancer Colon Family History; Cancer Brain Family History; Cancer Prostate Family History 11/26/2024 2:58 PM CDT - 11/26/2024 11:59 PM CDT Hospital Encounter Department of Laboratory Medicine in [address] [phone] Nanci Pena APRN, C.N.P., Corina.N.P., M.S. Cancer Breast Family History; Cancer Colon Family History; Cancer Brain Family History; Cancer Prostate Family History Discharge Disposition: Home or Self Care 11/21/2024 Results Follow-Up Breast Diagnostic Clinic in [place], [place] [address] [place] [phone] Celeste Casillas M.D. Pathology Review of Outside Material 11/18/2024 10:30 AM GOLD PLATER Telemedicine Department of Medical Genetics in [place], [place] [address] [place] [phone] Celeste Casillas M.D. Rogen, Kara R MFlorecitaSFlorecita, [facility] Cancer Colon Family History (Primary Dx); Cancer Breast Family History; Cancer Brain Family History; Cancer Prostate Family History 11/18/2024 Clinical Communication Department of Medical Genetics in [place], [place] [address] [place] [address] Vivian Estes, M.SFlorecita, [facility] Ambry:CAMMIE 11/17/2024 10:30 AM GOLD PLATER Comprehensive Visit Breast Diagnostic Clinic in [place], [place] [address] [place] [phone] Celeste Casillas M.D. Cancer Breast Family History (Primary Dx); Mammographic Heterogeneous Density, Bilateral Breasts 11/14/2024 3:30 PM GOLD PLATER Clinical Communication Virtual Review in [place], [place] 200 [place] [phone] Pre-visit Intake 11/12/2024 3:30 PM GOLD PLATER Lab RST RO LMP [address] [place] [phone] Celeste Casillas M.D. Other Skin Changes 11/12/2024 Orders Only Breast Diagnostic Clinic in [address] [phone] Celeste Casillas M.D. Other Skin Changes (Primary Dx) 10/24/2024 9:25 AM GOLD PLATER Ancillary Procedure Department of Radiology in [address] [phone] Celeste Casillas M.D. Pain Breast; Cancer Breast Family History 10/24/2024 8:35 AM GOLD PLATER Ancillary Procedure Department of Radiology in [address] [address] Celeste Casillas M.D. Pain Breast; Cancer Breast Family History 10/22/2024 Clinical Communication Breast Diagnostic Clinic in [place], [place] [address] [place] [phone] Celeste Casillas M.D. OSM - Outside Materials [...] testing Aunt 2 Xochitl ADD Brother 1 Jatinedr Anxiety disorder Brother 1 Jatinder Bicuspid aortic [...] drink = 0.6 oz pur e alcohol) [facility] Corindusities Answer Date Recorded In the past 12 months has e [employer], gas, oil, or water [employer] threatened to shut off services in your [...] Sex Assigned at Female 11/16/2024 10:08 PM GOLD PLATER Legal Sex Female 5:26 AM GOLD PLATER Gender Identity Female 11/16/2024 10:08 PM GOLD PLATER Sexual Orientation Straight 11/16/2024 10 :08 PM GOLD PLATER Last Filed Vital Signs Vital Sign Reading Time Taken Comments Blood Pressure 138/87 11/17/2024 10:26 AM GOLD PLATER Pulse 94 11/17/2024 10:26 AM GOLD PLATER Temperature - - Respiratory Rate - - Oxygen Saturation - - Inhaled Oxygen Concentration - - Weight 92.8 kg (204 lb 9.4 oz) 11/17/2024 10:26 AM GOLD PLATER Height 169.2 cm (5' 6.61) 11/17/2024 10:26 AM C Body Mass Index 32.42 11/17/2024 10:26 AM GOLD PLATER Plan of Treatment Health Maintenance Due Date [...] this topic Medical Devices Implanted Type Area Parts Designer Device Identifier Shelf Expiration Date Model / Serial / Lot Bladder Sling Mesh or Patch Bladder Procedures Procedure Name Priority Date/Time Associated Diagnosis Comments [facility] GENETICS Routine 11/26/2024 3 :07 PM CDT CRYOPRESERVATION FOR MOLEC STUDIES Routine 11/26/2024 3:07 PM CDT Cancer Breast Family History Cancer Colon Family History Cancer Brain Family History Cancer Prostate Family History INTERPRETATION OF OUTSIDE BREAST IMAGING RAD - Routine (most inpatients and all outpatients) 10/24/2024 9:25 AM GOLD PLATER Pain Breast Cancer Breast Family History INTERPRETATION OF OUTSIDE BREAST IMAGING RAD - Routine (most inpatients and all outpatients) 10/24/2024 9:02 AM GOLD PLATER Pain Breast Cancer Breast Family History PATHOLOGY CH[facility]NER CYTOLOGY Routine 7:46 PM GOLD PLATER from Last 3 Months or Most Recently Relevant to Health Maintenance Results * [facility] Giftbar (11/26/2024 3:07 PM CDT) Test Name Jerrica Custom Panel 12/03/2024 9:26 AM CDT AMBR Result SEE COMMENT 12/15/2024 9:32 AM CDT AMBR Comment: For final report, select Lab-Send Out Lab Results hyperlink below. 11/26/2024 3:07 PM CDT 12/03/2024 9:26 AM CDT Nanci Pena APRN, C.N.P., D.N.P., M.S. LAB [facility] ORDERABLES Final Result [address] [place] [address], [facility] AMBR [id number] [facility] [address] [place] [address] * Cryopreservation for Molecular Genetic Studies (11/26/2024 [...] is not a DNA banking service. If oysterman, guaranteed specimen storage is required, DNA banking [...] D.N.P., M.S. LAB GENETIC TESTING Final Result [facility] [address] [place] [address], [facility] DTL [address] [place] [address] * Interpretation of Outside Breast Imaging (10/24/2024 9:25 AM GOLD PLATER) Only the most recent of2 resultswithin the time period is included. Anatomical Region Laterality Modality Breast, Breast Imaging RST L OS, Breast Imaging ARZ LOS, Breast Imaging FLA LOS, Other N/A Mammography Impressions 11/05/2024 8:15 AM GOLD PLATER 1. No mammographic or sonographic findings of malignancy in either breast. 2. Recommend annual screening mammography and clinical management of the breast pain. Narrative 11/05/2024 8:15 AM GOLD PLATER EXAM: INTERPRETATION OF OUTSIDE BREAST IMAGING, INTERPRETATION [...] BI PROCEDURES Fin al Result * Pathology CHANNEL TURNER Cytology (09/30/2003 7:46 PM GOLD PLATER) 09/30/2003 7:46 PM GOLD PLATER 09/30/2003 7:46 PM GOLD PLATER [facility] - 09/30/2003 7:46 PM GOLD PLATER 09/29/2003 Cytology Gynecological ([id number]) Requested By: Matilde Cabrera M.D. [phone] DIAGNOSIS: A. Cervical/Endocervical Smear Screen: Satisfactory for evaluation. Negative for intraepithelial lesion or malignancy. 10/01/2003 MATTIE Morales (ASCP) Elizabeth Teixeira M.D. [phone] SPECIMEN DESCRIPTION: Procedure Note 12/08/2017 09/29/2003 Cytology Gynecological ([id number]) Requested By: Matilde Cabrera M.D. [phone] DIAGNOSIS: A. Cervical/Endocervical Smear Screen: Satisfactory for evaluation. Negative for intraepithelial lesion or malignancy. 10/01/2003 MATTIE Morales (ASCP) Elizabeth Teixeira M.D. [phone] SPECIMEN DESCRIPTION: us Historical Provider LAB PAP COPATH ORDERABLES Fi nal Result [facility] [address] [place] [address], [facility] from Last 3 Months or Most Recently Relevant to Health Maintenance Insurance [employer] Care Teams Special Programs Director Relationship Specialty Start Date End Date Elsewhere, Pcp PCP - General Family Medicine 08/01/20
--- OUTSIDE RECORDS SUMMARY | 2025-01-09 18:39 | XMS_ITS | Encounter Summary ---
Author Organization [facility] Address [address] [place] [address] Care Team Providers Care Wedding Transportation Driver Name Role Phone Elsewhere, Pcp Primary Care Provider Unavailabl e Reason for Visit * Reason Comments Genetic Testing Results: Negative Encounter Details Date Type Department Care Team ([facility] st Contact Info) Description 12/16/2024 Documentation Department of Medical Genetics in [place], [place] [address] [place] [address] Shelley De, Unlicensed ID Genetic Testing Results: Negative Social History Tobacco Use Types Packs/Day Years Used Date Smoking Tobacco: Every Day Passive Smoke Exposure: Never Smokeless Tobacco: Never Alcohol Use Standard Drinks/Week Comments Yes 3 (1 standard drink = 0.6 oz pur e alcohol) [facility] Utilities Answer Date Recorded In the past 12 months has [employer], gas, oil, or water [employer] threatened to shut off services in your [...] your living situation today? I have a [facility] place to live 11/16/2024 Comments No Sex and Gender Information Value Date Recorded Sex Assigned at Female 11/16/2024 10:08 PM ORCHESTRATOR Legal Sex Female 5:26 AM ORCHESTRATOR Gender Identity Female 11/16/2024 10:08 PM ORCHESTRATOR Sexual Orientation Straight 11/16/2024 10 :08 PM ORCHESTRATOR documented as of this encounter Progress Notes [...] [facility]ang[facility] These results were communicated to the patient via the patient online services portal by our genetic counseling medical assistant dermatology. RESULTS Germline genetic testing included sequence analysis [...] differential, and a clinical exam with a multiple drum sander. Individuals in this family with a first- [...] screening recommendations, suchas those made by the [place] [employer], do remain appropriate. FOLLOW UP/RECOMMENDATIONS [...] on filedocumented in this encounter Care Teams Wedding Transportation Driver Relationship Specialty Start Date End Date Elsewhere, Pcp PCP - General Family Medicine 08/01/20 documented as of this encounter
--- OUTSIDE RECORDS SUMMARY | 2025-01-09 18:39 | XMS_ITS | Clinical Summary ---
Author Organization [facility] Address [address] [place] [address] Care Team Providers Care Teacher Adult Education Name Role Phone Jorje Goodwin MD Unavailable [phone] Celina Espinoza MD Primary Care Provider + [...] on file Legal Sex Female 5:24 AM ADJUSTER PIANO ACTION Gender Identity Not on file Sexual Orientation Not on file Obstetrics History Last Filed Vital Signs Vital Sign Reading Time Taken Comments Blood Pressure 143/94 03/08/2022 4:15 PM CDT Pulse 99 03/08/2022 4:15 PM CDT Temperature 36.7 C (98.1 F) 08/21/2017 5:34 PM ADJUSTER PIANO ACTION Respiratory Rate - - Oxygen Saturation 98% 03/08/2022 4:15 PM CDT Inhaled Oxygen Concentration - - Weight 113.9 kg (251 lb) 03/08/2022 4:15 PM CDT Height 167 cm (5' 5.75) 08/21/2017 5:34 PM ADJUSTER PIANO ACTION Body Mass Index 40.82 08/21/2017 5:34 PM ADJUSTER PIANO ACTION Plan of Treatment Health Maintenance Due Date [...] Procedure Name Priority Date/Time Associated Diagnosis Comments [employer] EXEC[employer] SAL[employer] THIN PREP PAP SCREEN IMAGED Routine 10/11/2020 2:30 PM ADJUSTER PIANO ACTION from Last 3 Months or Most Recently Relevant to Health Maintenance Results * [employer] EXEC[employer] SAL[employer] THIN PREP PAP SCREEN IMAGED (10/11/2020 2:30 PM ADJUSTER PIANO ACTION) Case Report Gynecologic Cytology Report Case: [id number] Authorizing Provider: Ashlee Bonner MD Collected: 10/11/2020 1430 Ordering Location: [facility] Received: 10/13/2020 1041 First Screen: Tena Casillas Specimen: SOL[employer] EXEC[employer] SALES ThinPrep Vial Screening, Cervical/Vaginal 10/21/2020 5:13 PM ADJUSTER PIANO ACTION [facility] [employer] [facility]- ENTRAL [facility] INTERPRETATION/ RESULT NEGATIVE FOR INTRAEPITHELIAL LESION OR MALIGNANCY (NIL) (none) 10/21/2020 5:13 PM ADJUSTER PIANO ACTION [facility] ENTRCA LABORATORY at [address] ADJUSTER PIANO ACTION SPECIMEN ADEQUACY Satisfactory for evaluation Endocervical component present 10/21/2020 5:13 PM ADJUSTER PIANO ACTION [facility] HPV REQUEST HPV and PAP 10/21/2020 5:13 PM ADJUSTER PIANO ACTION [facility] Date of LMP 10/10/2020 10/21/2020 5:13 PM ADJUSTER PIANO ACTION [facility] Last Pap Date 02/15/2018 10/21/2020 5:13 PM ADJUSTER PIANO ACTION [facility] EN[facility] Last Pap Result NIL 5:13 PM ADJUSTER PIANO ACTION [facility] EN[facility] Comment:negative HPV Additional Information 10/21/2020 5:13 PM ADJUSTER PIANO ACTION [facility] Comment: Interpreted at [facility] [employer] [facility] - [address], [place] [address] Automated Review Successful 10/21/2020 5:13 PM ADJUSTER PIANO ACTION [facility] [employer] [facility] Comment:Specimen processed s uccessfully by automated grey stock recorder device, ThinPrep Imaging System, [employer] ANCILLARY TESTING SOLUTIONS EXECUTIVE CLOUD SALES HPV Ordered, Please see separate report 10/21/2020 5:13 PM ADJUSTER PIANO ACTION [facility] ENTRAL LABORATORY Note The pap [...] pre-malignant and malignant lesions. 10/21/2020 5:13 PM ADJUSTER PIANO ACTION [facility]-C ENTRAL LABORATORY Other (Cervical/Vagina l) 10/11/2020 2:30 PM ADJUSTER PIANO ACTION 10/13/2020 10:41 AM ADJUSTER PIANO ACTION us Ashlee Bonner MD PATHOLOGY/CYTOLOGY Final R esult [facility]-CENTRAL LABORATORY [address] [place] [address], from Last 3 Months or Most Recently Relevant to Health Maintenance Insurance [facility] MEDICAID Care Teams Teacher Adult Education Relationship Specialty Start Date End Date Celina Espinoza MD [address] [place] [address] PCP - General Family Practice 03/08/22 Jorje Goodwin MD [address] [place] [phone] Sports Medicine 12/12/11
--- OUTSIDE RECORDS SUMMARY | 2025-01-09 18:39 | XMS_ITS | Encounter Summary ---
Author Organization [facility] Address [address] [place] [address] Care Team Providers Care Supervisor Webbing Name Role Phone Elsewhere, Pcp Primary Care Provider Unavailabl e Encounter Details Date Type Department Care Team (Late st Contact Info) Description 11/21/2024 Results Follow-Up Breast Diagnostic Clinic in [place], [place] [address] [place] [address] Celeste Casillas M.D. [address] [place] [address] Pathology Review of Outside Material Social History Tobacco Use Types Packs/Day Years Used Date Smoking Tobacco: Every Day Passive Smoke Exposure: Never Smokeless Tobacco: Never Alcohol Use Standard Drinks/Week Comments Yes 3 (1 standard drink = 0.6 oz pur e alcohol) [facility] Utilities Answer Date Recorded In the past 12 months has [employer], gas, oil, or water [employer] threatened to shut off services in your [...] your living situation today? I have a [facility] place to live 11/16/2024 Comments No Sex and Gender Information Value Date Recorded Sex Assigned at Female 11/16/2024 10:08 PM PIN INSERTER REGULATOR Legal Sex Female 5:26 AM PIN INSERTER REGULATOR Gender Identity Female 11/16/2024 10:08 PM PIN INSERTER REGULATOR Sexual Orientation Straight 11/16/2024 10 :08 PM PIN INSERTER REGULATOR documented as of this encounter Plan of Treatment Not on file documented as of this encounter Visit Diagnoses Not on filedocumented in this encounter Care Teams Supervisor Webbing Relationship Specialty Start Date End Date Elsewhere, Pcp PCP - General Family Medicine 08/01/20 documented as of this encounter
--- OUTSIDE RECORDS SUMMARY | 2025-01-09 18:39 | XMS_ITS | Encounter Summary ---
Author Organization [facility] Address [address] [place] [address] Care Team Providers Care Customer Specialist Name Role Phone Elsewhere, Pcp Primary Care Provider Unavailabl e Encounter Details Date Type Department Care Team (Late st Contact Info) Description 12/16/2024 Results Follow-Up Department of Medical Genetics in [place], [place] [address] [place] [address] Shelley De, Unlicensed PA [facility] Genetics Social History Tobacco Use Types Packs/Day Years Used Date Smoking Tobacco: Every Day Passive Smoke Exposure: Never Smokeless Tobacco: Never Alcohol Use Standard Drinks/Week Comments Yes 3 (1 standard drink = 0.6 oz pur e alcohol) [facility] Utilities Answer Date Recorded In the past 12 months has [facility] [employer], gas, oil, or water [employer] threatened to shut off services in [...] living situation today? I have a [facility] place to live 11/16/2024 Comments No Sex and Gender Information Value Date Recorded Sex Assigned at Female 11/16/2024 10:08 PM DEPUTY ATTORNEY GENERAL Legal Sex Female 5:26 AM DEPUTY ATTORNEY GENERAL Gender Identity Female 11/16/2024 10:08 PM DEPUTY ATTORNEY GENERAL Sexual Orientation Straight 11/16/2024 10 :08 PM DEPUTY ATTORNEY GENERAL documented as of this encounter Plan of Treatment Not on file documented as of this encounter Visit Diagnoses Not on filedocumented in this encounter Care Teams Customer Specialist Relationship Specialty Start Date End Date Elsewhere, Pcp PCP - General Family Medicine 08/01/20 documented as of this encounter
--- OUTSIDE RECORDS SUMMARY | 2025-01-09 18:39 | XMS_ITS | Encounter Summary ---
Author Organization [facility] Address [address] [place] [address] Care Team Providers Care Rail Walker Name Role Phone Elsewhere, Pcp Primary Care Provider Unavailabl e Encounter Details Date Type Department Care Team (Late st Contact Info) Description 11/12/2024 Orders Only Breast Diagnostic Clinic in [place], [place] [address] [place] [address] Celeste Casillas M.D. [address] [place] [address] Other Skin Changes (Primary Dx) Social History Tobacco Use Types Packs/Day Years Used Date Smoking Tobacco: Every Day [facility] Utilities Answer Date Recorded In [...] your living situation today? I have a [facility] place to live 11/16/2024 Comments Unknown Sex and Gender Information Value Date Recorded Sex Assigned at Female 11/16/2024 10:08 PM SECTION FOREST FIRE WARDEN Legal Sex Female 5:26 AM SECTION FOREST FIRE WARDEN Gender Identity Female 11/16/2024 10:08 PM SECTION FOREST FIRE WARDEN Sexual Orientation Straight 11/16/2024 10 :08 PM SECTION FOREST FIRE WARDEN documented as of this encounter Plan of Treatment Not on file documented as of this encounter Results * Pathology Review of Outside Material (10/01/2024 10:45 AM SECTION FOREST FIRE WARDEN) 11/20/2024 3:33 PM SECTION FOREST FIRE WARDEN PDRM Report electronically signed by Hollie Beltran M.D. I verify that I have examined all relevant slides/materials for the specimen(s) and rendered or confirmed the diagnosis. A comprehensive consult with review of records that included imaging was performed to assist in the diagnostic assessment of the case. 11/20/2024 3:33 PM SECTION FOREST FIRE WARDEN PDRM Material Received A. [id number]: Left breast 7 stained slides 11/20/2024 3:33 PM SECTION FOREST FIRE WARDEN PDRM Interpretation FINAL DIAGNOSIS A. Left breast, [id number], 10/01/2024: Skin with focal foreign-body type granulomatous inflammation COMMENT Within the mid-dermis is a collection of foreign-body type granulomas. No polarizable material is identified. Clinical pathologic correlation is recommended. Digital imaging was used in the diagnostic assessment of this case. 11/20/2024 3:33 PM SECTION FOREST FIRE WARDEN PDRM Varies 10/01/2024 10:4 5 AM SECTION FOREST FIRE WARDEN 11/12/2024 5:46 PM SECTION FOREST FIRE WARDEN us Celeste Isaac M.D. LAB SURG PATH ORDERAB LES Final Result [facility] [address] [place] [address], [facility] PDRM [address] [place] [address] documented in this encounter Visit Diagnoses Diagnosis Other Skin Changes- Primary documented in this encounter Care Teams Rail Walker Relationship Specialty Start Date End Date Elsewhere, Pcp PCP - General Family Medicine 08/01/20 documented as of this encounter
--- OUTSIDE RECORDS SUMMARY | 2025-01-09 18:39 | XMS_ITS | Clinical Summary ---
Author Organization [facility] Address [address] , [address] [place] [address] Phone Care Team Providers Care Tissue Rewinder Name Role Phone [facility], [facility] Unavailable Unava ilable Conditions or Problems Problem Name Problem Code Onset Date Status Entry Date Provider Comment Standard Description Annotate Hand numbness 574238617 (SNOMED CT) Active Dmitry Warner MD Numbness of hand Elbow pain, unspecified 39673009 (SNOMED CT) Active Dmitry Warner MD Pain of elbow region Median neuropathy, right 215641461 (SNOMED CT) Active Dmitry aWrner MD Median neuropathy Medications No information available. [...] Procedures Code Procedure Name Date Entry Date CPT-94732 Nerve Conduction 13 or more studies 05/24 CPT-33187 EMG with NCS (5+ muscles) - 1 limb 05/24 Vital Signs No information available. Immunizations No information available. Advance Directives No information available.
--- OUTSIDE RECORDS SUMMARY | 2025-01-09 18:39 | XMS_ITS | Encounter Summary ---
Author Organization [facility] Address [address] [place] [id number] Care Team Providers Care Bullet Lubricating Machine Operator Name Role Phone Elsewhere, Pcp Primary Care Provider Unavailabl e Encounter Details Date Type Department Care Team (Late st Contact Info) Description 11/27/2024 8:15 AM CDT Lab RST RO LMP [address] [place] [phone] Nanci Pena APRN, C.N.P., D.N.P., M.S. [address] [place] [phone] Cancer Breast Family History; Cancer Colon Family History; Cancer Brain Family History; Cancer Prostate Family History Social History Tobacco Use Types Packs/Day Years Used Date Smoking Tobacco: Every Day Passive Smoke Exposure: Never Smokeless Tobacco: Never Alcohol Use Standard Drinks/Week Comments Yes 3 (1 standard drink = 0.6 oz pur e alcohol) [facility] Utilities Answer Date Recorded In the past 12 months has [employer], gas, oil, or water company threatened to [...] your living situation today? I have a [facility] place to live 11/16/2024 Comments No Sex and Gender Information Value Date Recorded Sex Assigned at Female 11/16/2024 10:08 PM [employer] Legal Sex Female 5:26 AM [employer] Gender Identity Female 11/16/2024 10:08 PM [employer] Sexual Orientation Straight 11/16/2024 10 :08 PM [employer] documented as of this encounter Plan of Treatment Not on file documented as of this encounter Procedures Procedure Name Priority Date/Time Associated Diagnosis Comments [facility] [place] [facility] Routine 11/26/2024 3 :07 PM CDT documented in this encounter Results * [facility] [employer] (11/26/2024 3:07 PM CDT) Test Name Jerrica Custom Panel 12/03/2024 9:26 AM CDT [facility] Result SEE COMMENT 12/15/2024 9:32 AM CDT [facility] Comment: For final report, select Lab-Send Out Lab Results hyperlink below. 11/26/2024 3:07 PM CDT 12/03/2024 9:26 AM CDT Nanci Pena APRN, C.N.P., D.N.P., M.S. LAB MISC ORDERABLES Final Result [facility] [address] [place] [address], [facility] [employer] [address] [place] [address] documented in this encounter Visit Diagnoses Diagnosis Cancer Breast Family History Cancer Colon Family History Cancer Brain Family History Cancer Prostate Family History documented in this encounter Care Teams Bullet Lubricating Machine Operator Relationship Specialty Start Date End Date Elsewhere, Pcp PCP - General Family Medicine 08/01/20 documented as of this encounter
--- OUTSIDE RECORDS SUMMARY | 2025-01-09 18:39 | XMS_ITS | Encounter Summary ---
Author Organization [facility] Address [address] [place] [id number] Care Team Providers Care Strand Buncher Fine Wire Name Role Phone Elsewhere, Pcp Primary Care Provider Unavailabl e Encounter Details Date Type Department Care Team (Late st Contact Info) Description 11/26/2024 2:58 PM CDT - 11/26/2024 11:59 PM CDT Hospital Encounter Department of Laboratory Medicine in [address] [phone] Nanci Pena APRN, C.N.P., D.N.P., M.S. [address] [place] [phone] Cancer Breast Family History; Cancer Colon Family History; Cancer Brain Family History; Cancer Prostate Family History Discharge Disposition: Home or Self Care Social History Tobacco Use Types Packs/Day Years Used Date Smoking Tobacco: Every Day Passive Smoke Exposure: Never Smokeless Tobacco: Never Alcohol Use Standard Drinks/Week Comments Yes 3 (1 standard drink = 0.6 oz pur e alcohol) [facility] Utilities Answer Date Recorded In the past 12 months has e [employer], gas, oil, or water company threatened to [...] your living situation today? I have a [facility] place to live 11/16/2024 Comments No Sex and Gender Information Value Date Recorded Sex Assigned at Female 11/16/2024 10:08 PM [employer] Legal Sex Female 5:26 AM [employer] Gender Identity Female 11/16/2024 10:08 PM [employer] Sexual Orientation Straight 11/16/2024 10 :08 PM [employer] documented as of this encounter Medications at [...] is not a DNA banking service. If group home, guaranteed specimen storage is required, DNA banking [...] D.N.P., M.S. LAB GENETIC TESTING Final Result [facility] [address] [place] [address], [facility] [address] [place] [address] documented in this encounter Visit Diagnoses Diagnosis Cancer Breast Family History Cancer Colon Family History Cancer Brain Family History Cancer Prostate Family History documented in this encounter Care Teams Strand Buncher Fine Wire Relationship Specialty Start Date End Date Elsewhere, Pcp PCP - General Family Medicine 08/01/20 documented as of this encounter
[2025-01-09 19:06] LABS: RBC Urine 0-2 (0-2)
[2025-01-09 19:07] LABS: Squamous Epithelial Cell Urine Few (None-Few); WBC Urine 0-2 (0-5)
[2025-01-09 19:14] LABS: Lactate Sepsis w/Reflex* 1.3 mmol/L (0.5-1.9)
[2025-01-09 19:18] LABS: Basophils Absolute Auto 0.02 K/uL (0.00-0.30); Basophils Percent Auto 0.2 % (0.0-3.0); Eosinophils Absolute Auto 0.06 K/uL (0.00-0.50); Eosinophils Percent Auto 0.7 % (0.0-7.0); Hematocrit 42.3 % (33.0-51.0); Immature Granulocytes Abs Auto 0.12 K/uL (0.00-0.30); Immature Granulocytes Pct Auto 1.4 %; Lymphocytes Absolute Auto 2.54 K/uL (0.90-2.90); Lymphocytes Percent Auto 29.1 % (20-44); Mean Corpuscular HGB Conc 33 gm/dL (32-36); Mean Corpuscular Hemoglobin 27 pg (26-34); Mean Corpuscular Volume 82 fL (80-100); Monocytes Percent Auto 8.6 % (0.0-11.0); Neutrophils Absolute Auto 5.24 K/uL (1.7-7.0); Platelet Count* 364 K/uL (140-440); RDW Coefficient of Variation % 13.4 % (11.5-15.5); Red Blood Count 5.17 m/uL (4.00-5.20); White Blood Count* 8.73 K/uL (4.50-11.00)
[2025-01-09 19:23] LABS: Slide Review Reflex No
[2025-01-09 19:33] LABS: Albumin* 4.3 g/dL (3.3-5.0); Chloride* 103 mmol/L (96-114); Sodium* 139 mmol/L (135-149)
[2025-01-09 19:34] LABS: Potassium* 3.8 mmol/L (3.6-5.1)
[2025-01-09 19:36] LABS: Alanine Aminotransferase* 58 U/L (4-35); Alkaline Phosphatase* 72 U/L (40-150); Anion Gap 10 mEq/L (7-15); Aspartate Amino Transferase* 49 U/L (12-35); Bilirubin Total* 0.4 mg/dL (0.1-1.5); Blood Urea Nitrogen* 16 mg/dL (5-24); Carbon Dioxide* 26 mmol/L (20-32); Creatinine* 0.9 mg/dL (0.5-1.5); Est. Creatinine Clearance* 83.23; Estimated Glomerular Filt Rate 84 ml/min; Lipase* 89 U/L (23-300); Total Protein* 6.9 g/dL (6.0-8.3)
[2025-01-09 19:37] LABS: Calcium* 9.2 mg/dL (8.4-10.6); Glucose* 77 mg/dL (60-115)
[2025-01-09] MEDS: ONDANSETRON 2 MG/ML inj 4 MG IVP (19:41)
[2025-01-09] MEDS: MORPHINE 4 MG/ML INJ IVP (19:41)
[2025-01-09 19:44] VITALS: PULSE 86; O2SAT 96
[2025-01-09 19:45] VITALS: PULSE 87; O2SAT 98
[2025-01-09 19:49] VITALS: BP 129/82; PULSE 85; O2SAT 98
[2025-01-09 19:58] LABS: PCR FLU A Negative PCR FLU A (Negative); PCR FLU B Negative PCR FLU B (Negative); PCR RSV Negative PCR RSV (Negative); SARS PCR* Negative SARS-CoV-2 (Negative)
== END 2025-01-09 20:47 | disposition home or self-care (01) ==
PROVIDERS: Emergency Provider Student in an Organized Health Care Education/Training Program; PCP Family Medicine
DX: R10.12 Left upper quadrant pain (principal); K59.00 Constipation, unspecified
CPT/HCPCS: 36415; 74177; 80053; 81001; 83605; 83690; 85025; 87040; 87631; 96374; 96375; 99284; J2270; J2405; Q9967

== ENCOUNTER 2025-02-23 15:06 | Outpatient (CLI) | payer OTHER, SELFPAY | END 2025-02-23 15:07 | disposition home or self-care (01) | LOC: NFLDREF 15:08 | PROVIDERS: PCP Family Medicine; Visit Provider Obstetrics & Gynecology | DX: R30.0 Dysuria (principal) | CPT/HCPCS: 87086 ==

== ENCOUNTER 2025-04-22 12:51 | Outpatient (CLI) | payer OTHER, SELFPAY | END 2025-04-22 12:52 | disposition home or self-care (01) | LOC: NFLDUCREF 12:52 | PROVIDERS: PCP Family Medicine | DX: R35.0 Frequency of micturition (principal) | CPT/HCPCS: 87086 ==